=== PATIENT | male | born 1980 | race Caucasian/White ===

== ENCOUNTER 2017-05-05 03:33 | Emergency (ER) | payer MEDICAID, SELFPAY ==
[2017-05-05 03:34] VITALS: BP 109/60; PULSE 93; RESP 16; TEMP 36.4; O2SAT 100; BMI 20.1
--- NOTE | 2017-05-05 03:55 | ED.VISSUMM ---
- ER Visit Summary Date of Service: 05/05/17 Chief Complaint: A posterior shoulder discomfort History of Present Illness: The patient is a 36 M significant past medical or surgical history other than lymphoma which was treated last year. He has a right MediPort. Patient states she has had 2 day history of dull aching in his right posterior shoulder. At times it sharp. Worse with movement. He is right-hand dominant. He denies any injury. Denies any fever. He denies any chest pain, shortness of breath or abdominal pain. He denies any nausea, vomiting or diarrhea. Physical Examination: Well-appearing young male. Vital signs are stable afebrile. Pulse ox 100% on room air no signs of hypoxia. H EENT exam unremarkable. Neck nontender no lymphadenopathy. Lungs clear to auscultation bilaterally. Heart regular rhythm no murmur. Right chest wall port nontender no redness. Abdomen soft nontender. He is moving all 4 extremities. Neurovascular intact. His right posterior shoulder and back medial to the scapula other soft tissue tenderness consistent with myofascial strain. There is no ecchymosis or bruising. No bony deformity. The right shoulder itself is nontender nonswollen. No redness or bruising. No swelling no effusion. No signs of infection. He has no axillary lymphadenopathy or tenderness. He has full flexion-extension and rotation of his right shoulder. There are no bony deformities. Is not hot or swollen. The right clavicle is intact. The humerus, elbow, right forearm, wrist and hand are nontender neurovascular intact. Full range of motion. 5 out of 5 preschool director strength. Normal sensation. Strong radial pulse. Otherwise exam is unremarkable. Test Results: None Emergency Department Course and Treatment: Patient's history and exam is consistent with a right trapezius myofascial strain. He will be given Motrin and discharged to home. X-rays and labs are not necessary. Treatment Plan: Hot shower, warm bath and massage. Motrin for pain and inflammation. Follow-up if not improving. Disposition: Discharge Impression: Acute right shoulder myofascial strain of the trapezius This note was generated with [employer] dictation software. It may contain incorrect words, spelling, and punctuation that were not noted in review of the chart prior to signing ED Disposition - Plan for ED Patient: Chief Complaint: Upper Extremity Injury Referrals: Leonor Godinez MD [Primary Care Provider] -
--- NOTE | 2017-05-05 03:58 | ED.DCSUM_ITS ---
- ER Visit Summary Date of Service: 05/05/17 Chief Complaint: A posterior shoulder discomfort History of Present Illness: The patient is a 36 M significant past medical or surgical history other than lymphoma which was treated last year. He has a right MediPort. Patient states she has had 2 day history of dull aching in his right posterior shoulder. At times it sharp. Worse with movement. He is right -hand dominant. He denies any injury. Denies any fever. He denies any chest pain, shortness of breath or abdominal pain. He denies any nausea, vomiting or diarrhea. Physical Examination: Well-appearing young male. Vital signs are stable afebrile. Pulse ox 100% on room air no signs of hypoxia. H EENT exam unremarkable. Neck nontender no lymphadenopathy. Lungs clear to auscultation bilaterally. Heart regular rhythm no murmur. Right chest wall port nontender no redness. Abdomen soft nontender. He is moving all 4 extremities. Neurovascular intact. His right posterior shoulder and back medial to the scapula other soft tissue tenderness consistent with myofascial strain. There is no ecchymosis or bruising. No bony deformity. The right shoulder itself is nontender nonswollen. No redness or bruising. No swelling no effusion. No signs of infection. He has no axillary lymphadenopathy or tenderness. He has full flexion-extension and rotation of his right shoulder. There are no bony deformities. Is not hot or swollen. The right clavicle is intact. The humerus , elbow, right forearm, wrist and hand are nontender neurovascular intact. Full range of motion. 5 out of 5 director medicare sales strength. Normal sensation. Strong radial pulse. Otherwise exam is unremarkable. Test Results: None Emergency Department Course and Treatment: Patient's history and exam is consistent with a right trapezius myofascial strain. He will be given Motrin and discharged to home. X-rays and labs are not necessary. Treatment Plan: Hot shower, warm bath and massage. Motrin for pain and inflammation. Follow-up if not improving. Disposition: Discharge Impression: Acute right shoulder myofascial strain of the trapezius This note was generated with Vinny dictation software. It may contain incorrect words, spelling, and punctuation that were not noted in review of the chart prior to signing ED Disposition - Plan for ED Patient: Chief Complaint: Upper Extremity Injury Referrals: Leonor Godinez MD [Primary Care Provider] -
--- NOTE | 2017-05-05 03:58 | ED.DEP ---
ED Disposition - Plan for ED Patient: Disposition: Home or Assisted Living Chief Complaint: Upper Extremity Injury Instructions: ED Strain Muscle Ext Referrals: Leonor Godinez MD [Primary Care Provider] - 1 Week if not improving Additional Instructions: Shower, warm bath and massage to right posterior shoulder. This is secondary to a strained muscle. Motrin for pain and inflammation. If not improving in 1 week follow-up your primary care physician.
[2017-05-05] MEDS: Ibuprofen 600 MG Tablet PO (04:05)
[2017-05-05 04:11] VITALS: RESP 16
== END 2017-05-05 04:11 | disposition home or self-care (01) ==
PROVIDERS: Emergency Provider Emergency Medicine; Family Provider Family Medicine; PCP Family Medicine
DX: S46.811A Strain of other muscles, fascia and tendons at shoulder and upper arm level, right arm, initial encounter (principal); X58.XXXA Exposure to other specified factors, initial encounter; Y93.9 Activity, unspecified; Y92.9 Unspecified place or not applicable; Z85.72 Personal history of non-Hodgkin lymphomas; Z92.21 Personal history of antineoplastic chemotherapy; Z95.828 Presence of other vascular implants and grafts
CPT/HCPCS: 99282

== ENCOUNTER 2017-05-15 01:55 | Emergency (ER) | payer MEDICAID, SELFPAY ==
[2017-05-15 01:56] VITALS: BP 104/69; PULSE 86; RESP 16; TEMP 36.9; O2SAT 99; BMI 19.0
[2017-05-15] MEDS: Morphine 4 MG/ML Syringe IV (02:40)
[2017-05-15] MEDS: Ondansetron 4 MG/2 ML Vial IV (02:40)
[2017-05-15] MEDS: 0.9% Normal Saline 1,000 ML 1000 ML IV (02:45)
[2017-05-15 02:49] LABS: Absolute Lymphocyte Count 1.16 X10^3/ul (0.83-4.51); Absolute Neutrophil Count 3.6 X10^3/uL (2.0-7.7); Basophil# 0.01 X10^3/uL; Basophil% 0.2 % (0-1); Eosinophil# 0.08 X10^3/uL; Eosinophils% 1.5 % (0-5); Hematocrit 39.6 % (40-54); Hemoglobin 13.8 g/dl (13.0-16.5); Lymphocyte # 1.16 X10^3/ul (4.0); Lymphocyte % 22.3 % (19-41); Mean Corp Hgb Conc 34.8 g/gl (32-36); Mean Corpuscular Hgb 29.9 pg (27.0-32.0); Mean Corpuscular Volume 85.9 fL (80-94); Mean Platelet Vol. 10.6 fl (6.2-12.0); Monocyte# 0.34 X10^3/uL; Monocyte% 6.5 % (0-10); Neutrophil # 3.61 X10^3/uL (2.7-7.7); Neutrophil % 69.3 % (47-70); Platelet Count 220 K/mm3 (150-450); RBC Distribution Width CV 13.9 % (11.6-14.6); RBC Distribution Width SD 43.2 fl (35.1-43.9); Red Blood Count 4.61 M/mm3 (4.6-6.2); White Blood Count 5.2 K/mm3 (4.4-11.0)
[2017-05-15 02:50] LABS: POSITIVE COUNT NO; POSITIVE DIFFERENTIAL NO; POSITIVE MORPHOLOGY NO
[2017-05-15 03:06] LABS: AST(SGOT) 16 U/L (15-37); Alanine Aminotransfer ALT/SGPT 18 U/L (16-61); Albumin, Serum 3.9 g/dL (3.2-5.0); Alkaline Phosphatase 60 U/L (45-117); Anion Gap 8 (5-15); BUN 15 mg/dL (7-18); BUN/Creat Ratio 17.5 RATIO (10-20); Bilirubin, Direct 0.08 mg/dL (0.00-0.30); Calcium,Total 8.6 mg/dL (8.5-10.1); Chloride 107 mmol/L (98-107); Creatinine, Serum 0.86 mg/dL (0.70-1.30); EST Glomerular Filtration Rate 107 mL/min (>60); Est Glom Filt Rate - Afr Amer 130 mL/min (>60); Estimated Creatinine Clearance 90.76 ml/min; Globulin 3.3 g/dL (2.2-4.2); Glucose 93 mg/dL (74-106); Lipase 134 U/L (73-393); Potassium 3.8 mmol/L (3.5-5.1); Protein, Total 7.2 g/dL (6.4-8.2); Sodium Level 142 mmol/L (136-145)
--- NOTE | 2017-05-15 03:27 | ED.VISSUMM ---
- ER Visit Summary Date of Service: 05/15/17 Chief Complaint: [] Abdominal pain History of Present Illness: The patient is a 36 M with abdominal pain for the last 7 days gradual onset continuous stabbing pain mostly on the left side. Mild to moderate. No history of kidney stones. No home treatment. He has remote lymphoma in 2010. He had a normal CAT scan in February of last year of his abdomen. Physical Examination: Vital signs reviewed General: Well-nourished well-developed Head: Normocephalic atraumatic Eyes: Pupils equal round and reactive to light extraocular movements intact ENT: TMs clear no hemotympanum no trauma Neck: Nontender full range of motion Cardiovascular: Regular rate rhythm no murmurs normal S1-S2 Respiratory: No distress clear to auscultation bilaterally chest nontender Abdomen: Soft tenderness left-sided without guarding.nondistended normal bowel sounds no masses Back: Nontender no CVA tenderness Extremities: Nontender active range of motion ?4 extremities no trauma Skin: Normal color no trauma Neuro alert oriented cranial nerves II through XII intact normal strength sensation reflexes Test Results: [] Emergency Department Course and Treatment: [] CBC chemistry liver function tests lipase all normal. Patient given IV fluids and morphine and Zofran with good resolution of symptoms. He will be given a short course of pain medicine will follow-up as an outpatient with his family doctor. I do not feel he needs an emergent CAT scan. Treatment Plan: [] Disposition: [] Impression: [] Abdominal pain This note was generated with [employer] dictation software. It may contain incorrect words, spelling, and punctuation that were not noted in review of the chart prior to signing ED Disposition - Plan for ED Patient: Chief Complaint: Abd Pain Referrals: Leonor Godinez MD [Primary Care Provider] -
--- NOTE | 2017-05-15 03:28 | ED.DEP ---
ED Disposition - Plan for ED Patient: Chief Complaint: Abd Pain Instructions: ED Abdominal Pain Unkn Cause Prescriptions: Hydrocodone Bitart/Apap 5-325 [[place] 5/325] 1 - 2 tab PO Q4H PRN PRN 3 Days #8 tab PRN Reason: Pain Referrals: Leonor Godinez MD [Primary Care Provider] -
[2017-05-15 03:34] VITALS: BP 104/37; PULSE 67; O2SAT 100
== END 2017-05-15 03:37 | disposition home or self-care (01) ==
PROVIDERS: Emergency Provider Emergency Medicine; Family Provider Family Medicine; PCP Family Medicine
DX: R10.9 Unspecified abdominal pain (principal); Z85.72 Personal history of non-Hodgkin lymphomas; Z87.440 Personal history of urinary (tract) infections
CPT/HCPCS: 80048; 80076; 83690; 85025; 96361; 96374; 96375; 99284; J7030; J2405

== ENCOUNTER 2017-05-30 00:47 | Emergency (ER) | payer MEDICAID, SELFPAY ==
[2017-05-30] VITALS (8 sets, daily range): BP systolic 85–114; BP diastolic 57–82; PULSE 68–99; RESP 14–17; TEMP 36.6–36.7; O2SAT 97–99; BMI 19.0
[2017-05-30 01:21] LABS: Absolute Lymphocyte Count 1.05 X10^3/ul (0.83-4.51); Absolute Neutrophil Count 3.9 X10^3/uL (2.0-7.7); Basophil# 0.01 X10^3/uL; Basophil% 0.2 % (0-1); Eosinophil# 0.09 X10^3/uL; Eosinophils% 1.6 % (0-5); Hematocrit 38.6 % (40-54); Hemoglobin 13.4 g/dl (13.0-16.5); Lymphocyte # 1.05 X10^3/ul (4.0); Mean Corp Hgb Conc 34.7 g/gl (32-36); Mean Corpuscular Hgb 29.6 pg (27.0-32.0); Mean Corpuscular Volume 85.4 fL (80-94); Monocyte# 0.45 X10^3/uL; Monocyte% 8.2 % (0-10); Neutrophil # 3.91 X10^3/uL (2.7-7.7); Neutrophil % 70.8 % (47-70); Platelet Count 230 K/mm3 (150-450); RBC Distribution Width CV 13.9 % (11.6-14.6); RBC Distribution Width SD 42.9 fl (35.1-43.9); Red Blood Count 4.52 M/mm3 (4.6-6.2); White Blood Count 5.5 K/mm3 (4.4-11.0)
[2017-05-30 01:24] LABS: POSITIVE COUNT NO; POSITIVE DIFFERENTIAL NO; POSITIVE MORPHOLOGY NO
[2017-05-30 01:35] LABS: Anion Gap 7 (5-15); BUN 20 mg/dL (7-18); Calcium,Total 8.5 mg/dL (8.5-10.1); Chloride 108 mmol/L (98-107); Creatinine, Serum 1.05 mg/dL (0.70-1.30); EST Glomerular Filtration Rate 85 mL/min (>60); Est Glom Filt Rate - Afr Amer 103 mL/min (>60); Estimated Creatinine Clearance 74.34 ml/min; Glucose 86 mg/dL (74-106); Potassium 3.8 mmol/L (3.5-5.1); Sodium Level 141 mmol/L (136-145)
[2017-05-30 01:38] LABS: Alcohol, Blood (Medical)-Serum < 3.0 mg/dL
--- NOTE | 2017-05-30 01:55 | ED.DCSUM_ITS ---
- ER Visit Summary Date of Service: 05/30/17 Chief Complaint: Suicidal ideation History of Present Illness: The patient is a 36 M patient brought in by PD after telling his father he had suicidal thoughts. He states his evening told his father he wanted to stab himself in the heart.. Admits to distress. History of bipolar not on any medications. Does not follow counselor or psychiatrist. States he had one inpatient stays in the past, none recently. States he drinks alcohol whenever he can, however none tonight. Admits to tobacco. Admits to THC use. No homicidal ideations. Denies any auditory or visual hallucinations. Does admit to wanting help. States he has been having thoughts for a while. Denies history of self injuries. States decreased appetite. Physical Examination: General: Alert and oriented ?3, no acute distress. Cooperative HEENT: Normocephalic, atraumatic. Moist mucosa membranes Neck: supple, nontender. Cardiovascular: Regular rate and rhythm, no murmurs Respiratory: Normal breath sounds, symmetric, no distress Abdomen: Soft, nontender, nondistended Extremities: Nontender, no edema, pulses intact ?4 Neuro: no focal neurological deficits. Psych: Positive suicidal ideation, flat affect Test Results: CBC, BMP normal. Tox and alcohol negative. Emergency Department Course and Treatment: Patient vitals stable, cooperative in the ED. Admits to suicidal ideations. Labs obtained, negative tox and alcohol. Patient medically cleared. Pending [facility] evaluation for disposition. Treatment Plan: [] Disposition: [] Impression: Suicidal ideation This note was generated with [employer] dictation software. It may contain incorrect words, spelling, and punctuation that were not noted in review of the chart prior to signing ED Disposition - Plan for ED Patient: Chief Complaint: Suicidal Referrals: Leonor Godinez MD [Primary Care Provider] -
[2017-05-30 02:04] LABS: Vista UDS pH Range 6
[2017-05-30 02:24] LABS: Amphetamine Urine VISTA NEGATIVE (<1000 ng/mL); Barbiturate Urine VISTA NEGATIVE (< 200 ng/mL); Benzodiazepine Urine VISTA NEGATIVE (< 200 ng/mL); Cocaine Urine VISTA NEGATIVE (< 300 ng/mL); Ecstacy Urine VISTA NEGATIVE (< 500 ng/mL); Methadone Urine VISTA NEGATIVE (< 300 ng/mL); PCP Urine VISTA NEGATIVE (< 25 ng/mL); THC Urine VISTA NEGATIVE (< 50 ng/mL)
--- NOTE | 2017-05-30 02:27 | ED.RN ---
CRISIS CALLED TO SEE PATIENT AT THIS TIME
--- NOTE | 2017-05-30 02:31 | ED.RN ---
CRISIS CALLED BACK MADE AWARE OF PATIENT CURRENTLY AT [facility] WITH ANOTHER PATIENT
--- NOTE | 2017-05-30 05:10 | ED.RN ---
LAMONTE FROM CRISIS HERE TO SEE PATIENT
--- NOTE | 2017-05-30 05:46 | EKG12_ITS ---
Test Reason : [facility] Pressure : / mmHG Vent. Rate : 071 BPM Atrial Rate : 071 BPM P-R Int : 130 ms QRS Dur : 086 ms QT Int : 388 ms P-R-T Axes : 071 079 046 degrees QTc Int : 421 ms Normal sinus rhythm Nonspecific T wave abnormality Abnormal ECG Confirmed by NIRANJAN ALBARADO, JUHI ([id number]), news videotape editor MICKY BUSBY ([id number]) on 06/04/2017 2:12:23 PM Referred By: LAINEY Confirmed By:JUHI UREÑA MD
--- NOTE | 2017-05-30 05:47 | ED.RN ---
called for ekg
[2017-05-30 06:06] LABS: Bacteria 0 SEEN /hpf (None Seen); Mucous, Urine 0 SEEN /hpf (<or=2+); Red Blood Cells-Urine 0 SEEN /hpf (0-5); Squamous Epithelial Cells - UA 0 SEEN /hpf (0-5); White Blood Cells 0 SEEN /hpf (0-5)
[2017-05-30 06:08] LABS: Color, Urine Yellow (Yellow); Glucose, Dipstick Normal (Normal); Ketone-Dipstick Negative (Negative); Leukocyte Esterase-Dipstick Negative /ul (Negative); Nitrite-Dipstick Negative (Negative); Occult Blood-Urine Negative /ul (Negative); Protein-Dipstick Negative (Negative); Specific Gravity, Urine 1.025 (1.002-1.030); Urine Bilirubin Dipstick Negative (Negative); Urine Clarity Clear (Clear); Urine Urobilinogen 4 mg/dl (Normal)
[2017-05-30 06:30] LABS: AST(SGOT) 18 U/L (15-37); Alanine Aminotransfer ALT/SGPT 19 U/L (16-61); Albumin, Serum 3.8 g/dL (3.2-5.0); Alkaline Phosphatase 63 U/L (45-117); Bilirubin, Direct 0.11 mg/dL (0.00-0.30); Globulin 3.3 g/dL (2.2-4.2); Protein, Total 7.1 g/dL (6.4-8.2)
--- NOTE | 2017-05-30 08:43 | NURSING ---
JOSE MARTIN, CRISIS, CALLED. HE WILL FOLLOWUP WITH [facility].
== END 2017-05-30 13:20 ==
PROVIDERS: Emergency Provider Emergency Medicine; Family Provider Family Medicine; PCP Family Medicine
DX: R45.851 Suicidal ideations (principal); F31.9 Bipolar disorder, unspecified; F12.90 Cannabis use, unspecified, uncomplicated; Z72.0 Tobacco use
CPT/HCPCS: 80048; 80076; 80307; 80320; 81001; 85025; 93005; 99284; G0480

== ENCOUNTER 2017-06-27 02:18 | Emergency (ER) | payer MEDICAID, SELFPAY ==
[2017-06-27 02:19] VITALS: BP 114/69; PULSE 115; RESP 16; TEMP 36.8; O2SAT 97; BMI 19.2
--- NOTE | 2017-06-27 02:35 | EKG12_ITS ---
Test Reason : CP Blood Pressure : / mmHG Vent. Rate : 101 BPM Atrial Rate : 101 BPM P-R Int : 132 ms QRS Dur : 074 ms QT Int : 324 ms P-R-T Axes : 072 064 -02 degrees QTc Int : 420 ms Sinus tachycardia Nonspecific T wave abnormality Abnormal ECG Confirmed by NIRANJAN ALBARADO, JUHI ([id number]), editorial specialist MICKY BUSBY ([id number]) on 06/28/2017 2:17:22 PM Referred By: CLAUDETTE Confirmed By:JUHI UREÑA MD
--- NOTE | 2017-06-27 02:35 | CT_ITS ---
STUDY: CTA CHEST REASON FOR EXAM: Male, 36 years old. Chest pain. History of lymphoma RADIATION DOSAGE (If Supplied By Facility): CTDIvol = ( 4.62 ) mGy, DLP = ( 210.68 ) mGycm TECHNIQUE: The examination was performed with the intravenous administration of 75ML ml of Isovue 370 contrast material. Post-processing of the angiographic images was performed, with multiplanar reformation and 3D reconstruction. Individualized dose optimization techniques were used for this CT. COMPARISON: None. FINDINGS: : TRACHEA, THYROID, ESOPHAGUS: No tracheomalacia,stricture or wall thickening. Thyroid and esophagus are normal CARDIOVASCULAR SYSTEM:The thoracic aorta is normal with no aneurysm, dissection or developmental anomalies. The pulmonary trunk and the left and right pulmonary arteries and their lobar and segmental branches do not show any abnormal and persistent filling defects in them. There is therefore no evidence of pulmonary embolism. The heart is normal. There are no venous anomalies NUSRAT AND LYMPH NODES: No hilar masses and no mediastinal, hilar, axillary or supraclavicular adenopathy LUNGS, LOW-ATTENUATION: No traction bronchiectasis, honeycombing,emphysema, lung cysts or cavitations LUNGS, HIGH ATTENUATION: No nodules/masses, ground glass opacities/consolidations or increased interstitial markings LUNGS, MOSAIC/CRAZY PAVING: Not evident PLEURA AND CHEST WALL: No plural effusions, pneumothoraces,rib fractures or any osteolytic/osteoblastic changes . The soft tissue chest wall including the breasts are normal UPPER ABDOMEN: Unremarkable CT/CTA Chest W/WO Contrast IMPRESSION: Normal CTA chest examination, without a demonstrated pulmonary embolism or arterial dissection. No acute findings in the lungs No mediastinal, hilar, axillary or supraclavicular adenopathy Electronically Signed: Abebe Nazario, at 3:45 EDT Tel , Service support ,
[2017-06-27] MEDS: Acetaminophen 500 MG Tablet 1000 MG PO (02:42)
[2017-06-27] MEDS: Aspirin 81 MG TAB.CHEW 324 MG PO (02:42)
[2017-06-27] MEDS: 0.9% Normal Saline 1,000 ML 1000 ML IV (02:42)
[2017-06-27 02:46] VITALS: O2SAT 99
[2017-06-27 02:46] LABS: Absolute Lymphocyte Count 1.15 X10^3/ul (0.83-4.51); Absolute Neutrophil Count 7.2 X10^3/uL (2.0-7.7); Basophil# 0.01 X10^3/uL; Basophil% 0.1 % (0-1); Hematocrit 40.8 % (40-54); Hemoglobin 14.2 g/dl (13.0-16.5); Lymphocyte # 1.15 X10^3/ul (4.0); Lymphocyte % 13.1 % (19-41); Mean Corp Hgb Conc 34.8 g/gl (32-36); Mean Corpuscular Hgb 29.8 pg (27.0-32.0); Mean Corpuscular Volume 85.5 fL (80-94); Mean Platelet Vol. 9.9 fl (6.2-12.0); Monocyte# 0.38 X10^3/uL; Monocyte% 4.3 % (0-10); Neutrophil # 7.24 X10^3/uL (2.7-7.7); Neutrophil % 82.2 % (47-70); POSITIVE COUNT NO; POSITIVE DIFFERENTIAL NO; POSITIVE MORPHOLOGY NO; Platelet Count 292 K/mm3 (150-450); RBC Distribution Width CV 13.8 % (11.6-14.6); RBC Distribution Width SD 42.9 fl (35.1-43.9); Red Blood Count 4.77 M/mm3 (4.6-6.2); White Blood Count 8.8 K/mm3 (4.4-11.0)
[2017-06-27 03:00] LABS: Anion Gap 7 (5-15); BUN 19 mg/dL (7-18); BUN/Creat Ratio 18.4 RATIO (10-20); Calcium,Total 8.8 mg/dL (8.5-10.1); Chloride 104 mmol/L (98-107); Creatinine, Serum 1.03 mg/dL (0.70-1.30); EST Glomerular Filtration Rate 87 mL/min (>60); Est Glom Filt Rate - Afr Amer 105 mL/min (>60); Glucose 115 mg/dL (74-106); Potassium 3.5 mmol/L (3.5-5.1); Sodium Level 139 mmol/L (136-145)
[2017-06-27 03:32] VITALS: BP 100/66; PULSE 84; RESP 16; O2SAT 98
--- NOTE | 2017-06-27 03:57 | ED.VISSUMM ---
- ER Visit Summary Date of Service: 06/27/17 Chief Complaint: Chest pain History of Present Illness: The patient is a [address] Nadine Godinez. He reports that he has pain that is substernal began 11:00 last night while he was at rest. It is a continuous sharp pain. It is 10 out of 10 at worst and a 10 currently. Is worsened by movement of his left arm or torso. Is unchanged by exertion. Is relieved by nothing. He denies any associated nausea or vomiting. Does report that when the pain is severe and makes him short of breath and diaphoretic. He states this is similar to when he was diagnosed with lymphoma. Patient reports that he was diagnosed with lymphoma in August 2015. He saw Dr. Valero, and oncologist at [facility], and had his last chemo in June 2016. As far as he knows he is cancer free. He is very concerned tonight that he has had a recurrence of his lymphoma. Physical Examination: Vitals: Stable. Afebrile. General: Well-nourished and well-developed. Head: Normocephalic atraumatic. Neck: Supple, no lymphadenopathy. No JVD. Nontender. Cardiovascular: Regular rate and rhythm. No murmurs. Respiratory: No respiratory distress. Clear to auscultation bilaterally. Moderate tenderness palpation over the left costochondral margin that does reproduce his pain. His pain is also reviewed produced with movement of his left arm. Abdominal: Soft, nontender, nondistended, normal bowel sounds. No guarding, rebound, or peritoneal signs. Back: Nontender. Extremities: Nontender, no edema. Skin: Normal color, no rash. Neurologic: Alert and oriented ?3. Cranial nerves II through XII are intact. Normal strength and sensation. Psych: Normal affect. Test Results: EKG is sinus tach at 101. Nonspecific ST changes. No significant changes from last month. Troponin is negative. Chem-7 is more for BUN of 19 and glucose of 115. CBC is remarkable for segment neutrophils of 82 lymphocytes of 13. CTA of the chest shows no PE or dissection. There is also no evidence of recurrence of his lymphoma. Emergency Department Course and Treatment: Patient was given a liter of normal saline and Toradol IV. On repeat exam his heart rate is in the 70s and he is resting comfortably. Treatment Plan: Patient's pain is reproducible with palpation and movement. His main concern was whether he had a recurrence of his lymphoma. His SIMIN score is 0. I do not think that this is cardiac in etiology. He has had 3-1/2 hours of constant pain with no change in his EKG or enzymes. I feel that he is a suitable candidate for further outpatient evaluation. He will be discharged instructions to follow-up with his primary care physician 1-2 days if not improving. Return to the emergency department for any worsening symptoms. Disposition: To home in improved and stable condition. Impression: 1. Chest wall pain. 2. History of lymphoma. 3. SIMIN score of 0. This note was generated with [employer]b dictation software. It may contain incorrect words, spelling, and punctuation that were not noted in review of the chart prior to signing ED Disposition - Plan for ED Patient: Chief Complaint: Chest Pain Instructions: ED Chest Pain Atypical Unkn Cause Referrals: Leonor Godinez MD [Primary Care Provider] - 1-2 Days if not improving
[2017-06-27 04:07] VITALS: BP 111/65; PULSE 73; RESP 16; O2SAT 98
--- NOTE | 2017-06-27 04:08 | ED.RN ---
IV DC'ED, CATHETER INTACT, SMALL GAUZE DRESSING PLACED. DISCHARGE INSTRUCTIONS GIVEN TO AND REVIEWED WITH PATIENT, PATIENT DENIES QUESTIONS OR CONCERNS AND VOICES UNDERSTANDING OF DISCHARGE INSTRUCTIONS. PT AMBULATES OUT OF ROOM WITHOUT DIFFICULTY.
== END 2017-06-27 04:09 | disposition home or self-care (01) ==
LOC: ED 03:29
PROVIDERS: Emergency Provider Emergency Medicine; Family Provider Family Medicine; PCP Family Medicine
DX: R07.89 Other chest pain (principal); Z85.72 Personal history of non-Hodgkin lymphomas; R06.00 Dyspnea, unspecified; R61 Generalized hyperhidrosis; Z92.21 Personal history of antineoplastic chemotherapy; F17.220 Nicotine dependence, chewing tobacco, uncomplicated
CPT/HCPCS: 71275; 80048; 84484; 85025; 93005; 96360; 99285; J7030; Q9967

== ENCOUNTER 2017-09-11 17:48 | Emergency (ER) | payer MEDICAID, SELFPAY ==
[2017-09-11 17:49] VITALS: BP 92/75; PULSE 99; RESP 16; TEMP 36.8; O2SAT 99
--- NOTE | 2017-09-11 18:10 | EKG12_ITS ---
Test Reason : Blood Pressure : / mmHG Vent. Rate : 082 BPM Atrial Rate : 082 BPM P-R Int : 132 ms QRS Dur : 078 ms QT Int : 344 ms P-R-T Axes : 065 071 022 degrees QTc Int : 401 ms Normal sinus rhythm with sinus arrhythmia Normal ECG Confirmed by ROXY ALBARADO, VALENCIA ([id number]), supervising editor news reel MICKY BUSBY ([id number]) on 09/13/2017 1:27:36 PM Referred By: MATILDE Confirmed By:VALENCIA RAMSEY MD
--- NOTE | 2017-09-11 18:15 | RAD_ITS ---
STUDY: X-RAY CHEST REASON FOR EXAM: Male, 36 years old. Chest pain TECHNIQUE: Frontal view of the chest COMPARISON: 07/23/2015 FINDINGS: The lungs are clear. There are no pleural effusions. There is no pneumothorax. The heart is normal in size. The visualized osseous structures are within normal limits. RAD/Chest 1 View (Portable) IMPRESSION: No acute thoracic pathology. Electronically Signed: Scott Brambila, at 18:31 EDT Tel , Service support ,
[2017-09-11] MEDS: 0.9% Normal Saline 1,000 ML 150 ML IV (18:21)
[2017-09-11 18:24] LABS: Absolute Lymphocyte Count 0.94 X10^3/ul (0.83-4.51); Basophil# 0.01 X10^3/uL; Basophil% 0.2 % (0-1); Eosinophil# 0.04 X10^3/uL; Eosinophils% 0.9 % (0-5); Hematocrit 41.4 % (40-54); Hemoglobin 14.2 g/dl (13.0-16.5); Lymphocyte # 0.94 X10^3/ul (4.0); Lymphocyte % 21.3 % (19-41); Mean Corp Hgb Conc 34.3 g/gl (32-36); Mean Corpuscular Hgb 29.5 pg (27.0-32.0); Mean Corpuscular Volume 86.1 fL (80-94); Mean Platelet Vol. 10.7 fl (6.2-12.0); Monocyte# 0.38 X10^3/uL; Monocyte% 8.6 % (0-10); Neutrophil # 3.03 X10^3/uL (2.7-7.7); Neutrophil % 68.8 % (47-70); POSITIVE COUNT NO; POSITIVE DIFFERENTIAL NO; POSITIVE MORPHOLOGY NO; Platelet Count 217 K/mm3 (150-450); RBC Distribution Width CV 13.4 % (11.6-14.6); RBC Distribution Width SD 42.7 fl (35.1-43.9); Red Blood Count 4.81 M/mm3 (4.6-6.2); White Blood Count 4.4 K/mm3 (4.4-11.0)
[2017-09-11 18:36] LABS: D-Dimer Quantitative (DVT/PE) 0.37 FEU/ug/m (0.27-0.49)
[2017-09-11 18:40] LABS: Anion Gap 8 (5-15); BUN 17 mg/dL (7-18); BUN/Creat Ratio 16.3 RATIO (10-20); Chloride 105 mmol/L (98-107); Creatinine, Serum 1.04 mg/dL (0.70-1.30); EST Glomerular Filtration Rate 86 mL/min (>60); Est Glom Filt Rate - Afr Amer 104 mL/min (>60); Estimated Creatinine Clearance 78.95 ml/min; Glucose 99 mg/dL (74-106); Potassium 3.7 mmol/L (3.5-5.1); Sodium Level 141 mmol/L (136-145)
--- NOTE | 2017-09-11 19:09 | ED.DCSUM_ITS ---
- ER Visit Summary Date of Service: 09/11/17 Chief Complaint: Chest pain History of Present Illness: The patient is a 36 M who initially complains of a 3 day history of chest pain. After further questioning pain is been ongoing for at least 7 days. He complains of pain right to the sternal area describes it as sharp. He states he occasionally gets short of breath. He states he has not had much of an appetite. He denies cough. He is reportedly seen at [place] last week for the same and had a negative workup. He has not yet made an appointment with his doctor for follow-up. Patient has a history of lymphoma, currently in remission. He denies personal cardiac history. He denies palpitations or near syncope. Physical Examination: Vital signs are gross unremarkable. Blood pressure is 92/ 75. Head neck examination unremarkable. Heart is regular rate and rhythm. Lung sounds are clear. He has reproducible anterior chest wall tenderness. There is no crepitus. Abdomen is soft nontender. Lower extremity examination reveals no calf tenderness or edema. Test Results: EKG is sinus 82 with no sign of acute ischemia. Chest x-ray is unremarkable. CBC and chemistry studies are normal. Troponin is less than 0.015. D-dimer 0.37. Emergency Department Course and Treatment: Patient was given IV fluids here. He lists allergies to naproxen, tramadol, and hydromorphone. When nursing staff asked what he could take for pain he reports Vicodin and Percocet. I specifically asked him what he could take for pain that was nonnarcotic. He states he has had Toradol in the past. He will be given a dose of IV Toradol and written for Toradol tabs. Patient is advised to follow-up with his primary care physician. Treatment Plan: [] Disposition: Discharge Impression: Chest wall pain This note was generated with [employer] dictation software. It may contain incorrect words, spelling, and punctuation that were not noted in review of the chart prior to signing ED Disposition - Plan for ED Patient: Chief Complaint: Chest Pain Referrals: Leonor Godinez MD [Primary Care Provider] -
--- NOTE | 2017-09-11 19:09 | ED.DEP ---
ED Disposition - Plan for ED Patient: Disposition: Home or Assisted Living Chief Complaint: Chest Pain Instructions: ED Strain Chest Wall Prescriptions: Ketorolac [Toradol] 10 mg PO Q6H PRN #14 tablet PRN Reason: Pain Referrals: Leonor Godinez MD [Primary Care Provider] - As soon as possible
[2017-09-11] MEDS: Ketorolac 30 MG/ML Syringe IV (19:16)
[2017-09-11 19:17] VITALS: BP 93/56; PULSE 69; RESP 18; O2SAT 99
[2017-09-11 20:06] VITALS: BP 96/65; PULSE 72; RESP 18; O2SAT 99
== END 2017-09-11 20:08 | disposition home or self-care (01) ==
PROVIDERS: Emergency Provider Emergency Medicine; Family Provider Family Medicine; PCP Family Medicine
DX: R07.89 Other chest pain (principal); R06.00 Dyspnea, unspecified; Z85.72 Personal history of non-Hodgkin lymphomas
CPT/HCPCS: 71045; 80048; 84484; 85025; 85379; 93005; 96361; 96374; 99284; J7030; A4216

== ENCOUNTER 2017-10-02 17:27 | Emergency (ER) | payer MEDICAID, SELFPAY ==
[2017-10-02 17:28] VITALS: BP 114/72; PULSE 107; RESP 16; TEMP 36.8; O2SAT 99; BMI 18.8
[2017-10-02 18:34] LABS: Hematocrit 42.6 % (40-54); Hemoglobin 14.3 g/dl (13.0-16.5); Mean Corp Hgb Conc 33.6 g/gl (32-36); Mean Corpuscular Hgb 28.9 pg (27.0-32.0); Mean Corpuscular Volume 86.1 fL (80-94); Mean Platelet Vol. 10.5 fl (6.2-12.0); Platelet Count 231 K/mm3 (150-450); RBC Distribution Width CV 13.2 % (11.6-14.6); RBC Distribution Width SD 41.6 fl (35.1-43.9); Red Blood Count 4.95 M/mm3 (4.6-6.2); Scan Indicated on CBC? Y/N NO
[2017-10-02 18:45] LABS: ALB/GLOB Ratio 1.1 RATIO (0.9-2.4); AST(SGOT) 23 U/L (15-37); Alanine Aminotransfer ALT/SGPT 19 U/L (16-61); Albumin, Serum 4.3 g/dL (3.2-5.0); Alkaline Phosphatase 61 U/L (45-117); Anion Gap 8 (5-15); BUN 25 mg/dL (7-18); BUN/Creat Ratio 19.2 RATIO (10-20); Calcium,Total 9.4 mg/dL (8.5-10.1); Chloride 101 mmol/L (98-107); EST Glomerular Filtration Rate 67 mL/min (>60); Est Glom Filt Rate - Afr Amer 80 mL/min (>60); Estimated Creatinine Clearance 59.46 ml/min; Globulin 3.9 g/dL (2.2-4.2); Glucose 88 mg/dL (74-106); Lipase 69 U/L (73-393); Potassium 3.9 mmol/L (3.5-5.1); Protein, Total 8.2 g/dL (6.4-8.2); Sodium Level 138 mmol/L (136-145)
--- NOTE | 2017-10-02 19:40 | ED.VISSUMM ---
- ER Visit Summary Date of Service: 10/02/17 Chief Complaint: Right upper quadrant abdominal pain History of Present Illness: The patient is a 36 M who presents with right upper quadrant abdominal pain that began yesterday. She states the pain is intermittent. Patient states the pain lasts for couple hours. Patient describes the pain as sharp. Patient states pain is localized to the right upper quadrant. Patient denies any radiation of the pain. Patient states nothing makes it better or worse. Patient denies any nausea or vomiting. Patient denies any diarrhea or constipation. Patient denies any melena or hematochezia. Patient denies any urinary complaints. Physical Examination: Vital signs are stable. Patient is afebrile. Patient is in no acute distress. Oral mucosa is pink and moist. Neck is supple. There is no JVD noted. Heart was regular rate and rhythm. Lungs are clear and equal bilaterally. Abdomen is soft. There is right upper quadrant tenderness. There is no rebound or guarding noted. Skin is warm and dry. There is no scleral icterus or jaundice noted. Cranial nerves II through XII are intact. There are no focal motor or sensory deficits noted. Test Results: CBC and comprehensive metabolic profile were obtained and were within normal limits. Emergency Department Course and Treatment: Patient was instructed to follow-up with his primary care physician in 5-7 days. Patient understood and was agreeable with the plan. All questions were answered. Disposition: Discharged home Impression: Right upper quadrant abdominal pain This note was generated with [employer] dictation software. It may contain incorrect words, spelling, and punctuation that were not noted in review of the chart prior to signing ED Disposition - Plan for ED Patient: Disposition: Home or Assisted Living Chief Complaint: Abd Pain Diagnosis: Right upper quadrant abdominal pain of unknown etiology Instructions: ED Abdominal Pain Unkn Cause Referrals: Leonor Godinez MD [Primary Care Provider] -
[2017-10-02 19:44] VITALS: BP 124/60; PULSE 87; RESP 18; O2SAT 100
== END 2017-10-02 19:45 | disposition home or self-care (01) ==
PROVIDERS: Emergency Provider Emergency Medicine; Family Provider Family Medicine; PCP Family Medicine
DX: R10.11 Right upper quadrant pain (principal); Z85.72 Personal history of non-Hodgkin lymphomas; F17.200 Nicotine dependence, unspecified, uncomplicated
CPT/HCPCS: 80053; 83690; 85027; 99282

== ENCOUNTER 2018-05-20 22:04 | Emergency (ER) | payer SELFPAY ==
--- NOTE | 2018-05-20 00:05 | RAD_ITS ---
HISTORY: pain on both sides of jaw/hit in the face by a cow earlier today COMPARISON: None FINDINGS: XR Mandible Complete 5 views 5 views and the Arjun's view is limited by motion. The patient is partially edentulous. No fracture or mandibular dislocation. No suspicious bony lesion. As visualized, the soft tissues are negative. No salivary gland calculi seen. RAD/Mandible Min 4 Views IMPRESSION: Negative for fracture or acute osseous abnormality. at 0030 Reported and signed by: Omar Heaton MD Electronically Signed: Omar Heaton, at 0:29 EDT Tel , Service support ,
[2018-05-20 22:07] VITALS: BP 102/65; PULSE 89; RESP 16; TEMP 36.8; O2SAT 99; BMI 20.7
--- NOTE | 2018-05-20 23:56 | ED.DCSUM_ITS ---
- ER Visit Summary Date of Service: 05/20/18 Chief Complaint: Jaw injury History of Present Illness: The patient is a 37 M who presents with a jaw injury. He was hit in the face by a cow's head. This occurred 4-5 hours before presentation here. He denies any loss of consciousness or amnesia. He has not anticoagulated. He denies headache or vomiting. He is able to open his mouth. Physical Examination: Afebrile vitals normal Patient has swelling of the lower lip there is no midface instability or jaw malocclusion he has tenderness along the chin but the rest of the mandible is nontender no dental fractures no open wounds Heart regular rate and rhythm Lungs clear GCS of 15, no focal or lateralizing neurological deficits Test Results: Mandible x-ray shows no fracture Emergency Department Course and Treatment: X-ray negative as above. Patient declined any analgesics. He was advised on supportive care. Patient discharged. Treatment Plan: [] Disposition: Discharge Impression: Facial contusion This note was generated with [employer] dictation software. It may contain incorrect words, spelling, and punctuation that were not noted in review of the chart prior to signing ED Disposition - Plan for ED Patient: Referrals: Madiha Godinez [Primary Care Provider] -
[2018-05-21 00:20] VITALS: BP 100/67; PULSE 77; RESP 16; O2SAT 99
--- NOTE | 2018-05-21 00:46 | ED.DEP ---
ED Disposition - Plan for ED Patient: Instructions: ED Contusion Face Referrals: Madiha Godinez [Primary Care Provider] -
== END 2018-05-21 00:54 | disposition home or self-care (01) ==
PROVIDERS: Emergency Provider Emergency Medicine
DX: S00.83XA Contusion of other part of head, initial encounter (principal); W55.22XA Struck by cow, initial encounter; Y93.9 Activity, unspecified; Y92.9 Unspecified place or not applicable
CPT/HCPCS: 70110; 99282

== ENCOUNTER 2018-07-22 04:27 | Emergency (ER) | payer SELFPAY ==
[2018-07-22 04:28] VITALS: BP 119/86; PULSE 96; RESP 19; TEMP 37; O2SAT 100; BMI 19.2
--- NOTE | 2018-07-22 04:34 | ED.VIS.GEN ---
History of Present Illness Chief Complaint: Cough Narrative: Patient is a 37-year-old male who presents with a cough. He reports 4 days of a nonproductive cough. No fevers, chest pain, shortness of breath, nausea or vomiting. He does complain of some associated sore throat. No congestion or rhinorrhea. Past Medical History - Allergies and Home Meds Allergies/Adverse Reactions: Allergies naproxen Allergy (Verified 07/22/18 04:30) Hives tramadol Allergy (Verified 07/22/18 04:30) Itching hydromorphone HCl [From Dilaudid] Adverse Reaction (Verified 07/22/18 04:30) Nausea Primary Care Physician: Madiha Godinez [Primary Care Provider] - Past Medical History: - - History of lymphoma Surgical History: no surgical history Smoking Status: Current some day smoker Review of Systems General: Reports: Chills. Denies: Fever Cardiovascular: Denies: Chest pain Respiratory: Reports: Cough. Denies: Dyspnea, Sputum Physical Exam Vital Signs/Narrative: Vital Signs Temp Pulse Resp BP Pulse Ox 07/22/18 04:28 98.6 F 96 19 H 119/86 H 100 General: Well nourished Head: Normocephalic Eyes: Perrl, EOMI ENT: Moist mucous membranes Neck: Supple Cardiovascular: Regular rate, Regular rhythm Respiratory: No distress, CTA bilaterally. Negative for: Rales, Rhonchi, Wheezing Skin: Normal color Neurological: Alert Psychological: Normal affect Diagnostic/Tx/Re-eval - Medical Decision Making Patient is clinically well-appearing. He has normal vital signs. Lungs are clear. I see no indication for further work-up or intervention. He was advised on supportive care. He was advised that with bronchitis cough may persist for weeks. Patient discharged. ED Disposition - Plan for ED Patient: Diagnosis: Bronchitis Instructions: Acute Bronchitis Referrals: Madiha Godinez [Primary Care Provider] -
== END 2018-07-22 04:44 | disposition home or self-care (01) ==
LOC: ED 04:43
PROVIDERS: Emergency Provider Emergency Medicine
DX: J40 Bronchitis, not specified as acute or chronic (principal); F17.200 Nicotine dependence, unspecified, uncomplicated
CPT/HCPCS: 99282

== ENCOUNTER 2018-08-01 21:26 | Emergency (ER) | payer SELFPAY ==
[2018-08-01 21:27] VITALS: BP 114/56; PULSE 100; RESP 16; TEMP 36.7; O2SAT 99; BMI 22.8
--- NOTE | 2018-08-01 21:42 | EKG12_ITS ---
Test Reason : SOB Blood Pressure : / mmHG Vent. Rate : 073 BPM Atrial Rate : 073 BPM P-R Int : 128 ms QRS Dur : 076 ms QT Int : 376 ms P-R-T Axes : 068 071 024 degrees QTc Int : 414 ms Normal sinus rhythm Nonspecific T wave abnormality Abnormal ECG Confirmed by NIRANJAN ALBARADO, JUHI ([id number]), editor trade journal [employer]ATIMA PERAZA ([id number]) on 08/05/2018 9:26:46 AM Referred By: MATILDE Confirmed By:JUHI UREÑA MD
--- NOTE | 2018-08-01 21:45 | ED.DCSUM_ITS ---
- ER Visit Summary Date of Service: 08/01/18 Chief Complaint: Shortness of breath History of Present Illness: The patient is a 37 M who presents with shortness of breath. Is been ongoing for 4 days. He states he has had a cough is not productive of any sputum. He has sharp chest pain in the lower part of his chest. Nothing makes it better or worse. He has decreased appetite. Denies any pain in his abdomen. He is concerned because he has a history of lymphoma and wants to make sure that it is not back. He took nothing for this at home. Physical Examination: Vital signs reviewed. HEENT exam unremarkable. Heart is regular rate and rhythm without murmurs. Lungs are clear to auscultation. He has chest tenderness in the lower sternal area. Abdomen is soft and nontender. Extremities reveal no edema. Peripheral pulses are equal. Skin exam normal. Neurologic exam normal. Test Results: EKG and chest x-ray are both unremarkable Emergency Department Course and Treatment: The patient was given albuterol. He feels improved with this. His EKG and chest x-ray both do not show any acute on normalities. His pain is likely musculoskeletal. I will treat him with an albuterol inhaler at home. He will follow-up with his primary care physician Treatment Plan: [] Disposition: Discharge Impression: Dyspnea, chest pain This note was generated with [employer] dictation software. It may contain incorrect words, spelling, and punctuation that were not noted in review of the chart prior to signing ED Disposition - Plan for ED Patient: Referrals: Madiha Godinez [Primary Care Provider] -
--- NOTE | 2018-08-01 21:50 | RAD_ITS ---
STUDY: X-RAY CHEST REASON FOR EXAM: Male, 37 years old. Shortness of breath for 3 days. TECHNIQUE: PA and lateral views of the chest. COMPARISON: September 11, 2017. FINDINGS: The lungs are hyperexpanded. No new mass or infiltrate. There is no demonstrated pleural abnormality. Normal size heart. Normal mediastinum and sangeeta. Normal visualized pulmonary arteries. Normal visualized aortic arch and descending thoracic aorta. No visualized osseous changes. There is no demonstrated abnormality of the visualized soft tissue structures of the upper abdomen. RAD/Chest PA and Lateral IMPRESSION: No acute cardiopulmonary disease or interval change. Electronically Signed: Juan Dawson DO at 22:09 EDT Tel [phone], Service support ,
[2018-08-01 22:04] VITALS: PULSE 90; RESP 16
[2018-08-01] MEDS: Albuterol 2.5 MG/3 ML VIAL.NEB. INHALATION (22:04)
--- NOTE | 2018-08-01 22:14 | ED.DEP ---
ED Disposition - Plan for ED Patient: Disposition: Home or Assisted Living Instructions: ED Upper Resp Infec No Abx Tx Prescriptions: Albuterol Inhaler [Ventolin Hfa] 1 - 2 puff INHALATION Q4H PRN PRN #1 inhaler PRN Reason: Wheezing Referrals: Madiha Godinez [Primary Care Provider] -
[2018-08-01 22:34] VITALS: BP 107/56; PULSE 91; RESP 18; O2SAT 96
== END 2018-08-01 22:36 | disposition home or self-care (01) ==
LOC: ED 22:22
PROVIDERS: Emergency Provider Emergency Medicine
DX: R06.00 Dyspnea, unspecified (principal); R07.9 Chest pain, unspecified; R05 Cough; Z85.72 Personal history of non-Hodgkin lymphomas
CPT/HCPCS: 71046; 93005; 94640; 99282

== ENCOUNTER 2019-04-02 12:51 | Observation (INO) | payer MEDICAID, SELFPAY ==
[2019-04-02] VITALS (8 sets, daily range): BP systolic 103–119; BP diastolic 54–76; PULSE 73–90; RESP 16–18; TEMP 36.4–37.7; O2SAT 100; BMI 28.2; BMI 19.6
--- NOTE | 2019-04-02 13:15 | ED.VIS.GEN ---
History of Present Illness Chief Complaint: ETOH Intox Informant: Patient Narrative: Patient comes to the emergency department requesting detox from alcohol. He tells me that he has been drinking heavily for 16 years. He states most nights he can drink a case of beer. He was in a detox center in [place] until Saturday when he felt that he did not like it there because it was dirty so he left. He came back to the area and started drinking again. This morning he was fired from his job. He states he was fired because he did not complete detox and that he was intoxicated. He has had 10 beers already this morning. He denies any legal issues currently. He states that the reason he wants to get sober is that he has a year and a half old on the way. I asked him to clarify and he states that he is going to be a father. Past Medical History - Allergies and Home Meds Allergies/Adverse Reactions: Allergies naproxen Allergy (Verified 04/02/19 12:52) Hives tramadol Allergy (Verified 04/02/19 12:52) Itching hydromorphone HCl [From Dilaudid] Adverse Reaction (Verified 04/02/19 12:52) Nausea Primary Care Physician: Care Physician,No Primary [Primary Care Provider] - Surgical History: no surgical history Smoking Status: Never smoker Review of Systems General: Denies: Chills, Fever, Sweats Eyes: Denies: Visual changes - bilaterally, Diplopia ENT: Denies: Rhinorrhea, Sore throat Cardiovascular: Denies: Chest pain, Palpitations Respiratory: Denies: Dyspnea, Cough, Dyspnea on exertion Gastrointestinal: Reports: Abdominal pain. Denies: Nausea, Vomiting, Diarrhea, Melena, Hematochezia Genitourinary: Denies: Dysuria, Hematuria, Frequency Musculoskeletal: Denies: Back pain, Extremity Pain Skin: Denies: Rash, Wounds Neurological: Denies: Headache, Weakness, Numbness Psych: Reports: Depression. Denies: Suicidal thoughts, Suicidal ideations Physical Exam Vital Signs/Narrative: Vital Signs Temp Pulse Resp BP Pulse Ox 04/02/19 12:52 97.6 F L 89 17 104/64 100 Inital Vital Signs reviewed: Yes General: Well nourished, Well developed, Unkempt, No Acute Distress Head: Normocephalic, Atraumatic Eyes: Perrl, EOMI ENT: Moist mucous membranes, No rhinorrhea Neck: Supple, Nontender Cardiovascular: Regular rate, Regular rhythm, No murmurs Respiratory: No distress, CTA bilaterally, Chest nontender Abdomen: Soft, Nondistended, Normal bowel sounds, Tender - Mild diffuse tenderness to palpation Back: Nontender, Normal Inspection Extremities: Nontender, No edema Skin: Normal color, No rash Neurological: Alert, Oriented x3, Cranial nerves II-XII grossly intact, Normal Strength, Normal Sensation Psychological: Normal affect, Normal Mood Diagnostic/Tx/Re-eval - Medical Decision Making Patient's tox screen revealed a normal alcohol level which was surprising given his information that he drank 10 beers this morning. Urine tox showed barbiturates and benzos. Patient's been able to ambulate down the hallway. I did have social work interview the patient. Dr. Hanna has agreed to admit the patient for alcohol detox. ED Disposition - Plan for ED Patient: Disposition: Acute Care [facility] Diagnosis: Alcohol abuse Referrals: Care Physician,No Primary [Primary Care Provider] -
[2019-04-02 13:42] LABS: Absolute Lymphocyte Count 0.99 X10^3/uL (0.83-4.51); Absolute Neutrophil Count 4.1 X10^3/uL (2.0-7.7); Basophil# 0.02 X10^3/uL; Basophil% 0.4 % (0-1); Eosinophil# 0.03 X10^3/uL; Eosinophils% 0.6 % (0-5); Hematocrit 41.8 % (40-54); Hemoglobin 13.6 g/dL (13.0-16.5); Lymphocyte # 0.99 X10^3/ul (4.0); Lymphocyte % 18.5 % (19-41); Mean Corp Hgb Conc 32.5 g/dL (32-36); Mean Corpuscular Hgb 29.1 pg (27.0-32.0); Mean Corpuscular Volume 89.3 fL (80-94); Mean Platelet Vol. 10.1 fl (6.2-12.0); Monocyte# 0.23 X10^3/uL; Monocyte% 4.3 % (0-10); NRBC Flagged by Analyzer 0 % (0-5); Neutrophil # 4.05 X10^3/uL (2.7-7.7); Neutrophil % 75.5 % (47-70); Platelet Count 244 K/mm3 (150-450); RBC Distribution Width SD 45.7 fl (35.1-43.9); Red Blood Count 4.68 M/mm3 (4.6-6.2); White Blood Count 5.4 K/mm3 (4.4-11.0)
[2019-04-02 13:52] LABS: Bacteria 0 SEEN /hpf (None Seen); Mucous, Urine 0 SEEN /hpf (<or=2+); Red Blood Cells-Urine 0 SEEN /hpf (0-5); Squamous Epithelial Cells - UA 0 SEEN /hpf (0-5); White Blood Cells 0 SEEN /hpf (0-5)
[2019-04-02 13:53] LABS: Color, Urine Yellow (Yellow); Glucose, Dipstick Normal (Normal); Ketone-Dipstick Negative (Negative); Leukocyte Esterase-Dipstick Negative /ul (Negative); Nitrite-Dipstick Negative (Negative); Occult Blood-Urine Negative /ul (Negative); Protein-Dipstick Negative (Negative); Urine Bilirubin Dipstick Negative (Negative); Urine Clarity Clear (Clear); Urine Urobilinogen Normal (Normal)
[2019-04-02 13:57] LABS: AST(SGOT) 14 U/L (15-37); Alanine Aminotransfer ALT/SGPT 23 U/L (16-61); Albumin, Serum 3.7 g/dL (3.2-5.0); Alkaline Phosphatase 54 U/L (45-117); Anion Gap 4 (5-15); BUN 8 mg/dL (7-18); BUN/Creat Ratio 8.9 RATIO (10-20); Calcium,Total 8.9 mg/dL (8.5-10.1); Chloride 106 mmol/L (98-107); EST Glomerular Filtration Rate 101 mL/min (>60); Est Glom Filt Rate - Afr Amer 122 mL/min (>60); Estimated Creatinine Clearance 101.41 ml/min; Globulin 3.7 g/dL (2.2-4.2); Glucose 84 mg/dL (74-106); Lipase 59 U/L (73-393); Magnesium 2.4 mg/dL (1.6-2.6); Potassium 3.9 mmol/L (3.5-5.1); Protein, Total 7.4 g/dL (6.4-8.2); Sodium Level 140 mmol/L (136-145)
[2019-04-02 14:04] LABS: Amphetamine Urine VISTA NEGATIVE (<1000 ng/mL); Barbiturate Urine VISTA POSITIVE (< 200 ng/mL); Benzodiazepine Urine VISTA POSITIVE (< 200 ng/mL); Cocaine Urine VISTA NEGATIVE (< 300 ng/mL); Ecstacy Urine VISTA NEGATIVE (< 500 ng/mL); Methadone Urine VISTA NEGATIVE (< 300 ng/mL); PCP Urine VISTA NEGATIVE (< 25 ng/mL); THC Urine VISTA NEGATIVE (< 50 ng/mL); Vista UDS pH Range 7
[2019-04-02 14:24] LABS: Alcohol, Blood (Medical)-Serum < 3.0 mg/dL
--- NOTE | 2019-04-02 14:52 | HP.PCM_ITS ---
History of Present Illness Date of Admission: 04/02/19 Chief Complaint: alcohol withdrawal The patient is a 38 year old M with a past medical history of alcohol abuse. Patient was on admission at a detox facility and [facility] but left lesser today because he said the place was very dirty. He went to [employer] he drank like a fish with his buddies and cannot quantify how much he drank. He has been drinking consistently since then. He was recently fired from his job and decided that he needed help with detox and so he decided to come in. Patient states he is tried quitting numerous times in the past but is just unsuccessful. He complained of feeling miserable but denied any fever or chills, nausea or vomiting. He admitted to [facility] but denied palpitations, abdominal pain or any other symptoms. In the ED, vitals were essentially unremarkable he was saturating at 100% on room air. Chemistry was unremarkable and CBC was also unremarkable. Urine tox was positive for barbiturates and benzodiazepines though he denies taking any pills or any other illicit substances. He has been admitted to be managed for acute alcohol withdrawal. [] Past Medical History Allergies naproxen Allergy (Verified 04/02/19 12:52) Hives tramadol Allergy (Verified 04/02/19 12:52) Itching hydromorphone HCl [From Dilaudid] Adverse Reaction (Verified 04/02/19 12:52) Nausea Home Medications: Ambulatory Orders Medication Instructions Recorded NK 04/02/19 Surgical History: no surgical history Psychiatric History: No pertinent psych hx Lives: Friends Smoking Status: Never smoker Tobacco Use: Non-smoker Alcohol: Heavy Drugs: None - *Family History Maternal History Items: - - patient adopted, so doesnt know about family history Review of Systems Constitutional: Reports: Malaise, Weakness, Fatigue. Denies: Chills, Fever, Weight Change Eyes: Denies: Blurred vision HEENT: Denies: Head Aches, Sinus Congestion, Sinus Drainage Cardiovascular: Denies: Chest Pain, Chest Pressure, Edema, Heaviness, Light Headedness, Palpitations Respiratory: Denies: Cough, Shortness of breath at rest, Sputum production Gastrointestinal: Denies: Abdominal Pain, Nausea, Vomiting Genitourinary: Denies: Dysuria Musculoskeletal: Denies: Joint Pain, Joint Tenderness Skin: Denies: Rash, Wounds Neurological: Reports: Tremor. Denies: Focal weakness, Numbness, Tingling Psychiatric: Denies: Anxiety, Depression, Homicidal Ideations, Suicidal Ideations Hematologic/ Lymphatic: Denies: Easy Bruising, Easy Bleeding VTE Information - Inpt Only VTE Present on Admission: No VTE Pharm Prophylaxis ordered?: Yes Patient Problems: Active and Suspected Problems Alcohol abuse (Acute) - Physical Exam Vitals/I&O's: Vital Signs Temp Pulse Resp BP Pulse Ox 97.6 F L 89 17 104/64 100 04/02/19 12:52 04/02/19 12:52 04/02/19 12:52 04/02/19 12:52 04/02/19 12:52 Oxygen Delivery Method Room Air Weight: 175 lb Body Mass Index (BMI) 28.2 General: Alert, Oriented x3, Cooperative, - - very dishevelled HEENT: Atraumatic, PERRLA, EOMI, Normocephalic Oral: Dry Mucosa Neck: Supple, No JVD, Negative Carotid Bruits Lungs: Clear to auscultation, Normal air movement, No rhonchi, No wheeze, No rales Cardiovascular: Regular rate, Regular Rhythm, Normal S1, Normal S2, No murmurs Abdomen: Bowel Sounds Present, Soft, Non Tender, Non-Distended, No Hepato- splenomegaly Extremities: No clubbing, No cyanosis, No edema, Capillary Refill Less than 3 Seconds, No Calf Tenderness, Cool, Clubbing, Cyanosis, Diminished Peripheral Pulses, Edema, Peripheral Pulses Normal, Tenderness, - Skin: No rashes, No breakdown Musculoskeletal: No Tenderness to Palpation of Joints or Extremities Lymphatic: No Cervical, Supraclavicular, or Inguinal Adenopathy Neurological: Cranial nerves II-XII grossly intact, Neuro grossly intact, Motor Exam 5/5 strength throughout Psych/Mental Status: Flat Affect, Alert and oriented to time, place, person, mood and affect Laboratory Results 04/02/19 13:33: WBC 5.4, RBC 4.68, Hgb 13.6, Hct 41.8, MCV 89.3, MCH 29.1, MCHC 32.5, RDW Std Deviation 45.7 H, RDW Coeff of Hugo 14.0, Plt Count 244, MPV 10.1, Immature Gran % (Auto) 0.700, Neut % (Auto) 75.5 H, Lymph % (Auto) 18.5 L, [place] % (Auto) 4.3, Eos % (Auto) 0.6, Baso % (Auto) 0.4, Absolute Neuts (auto) 4.1, Absolute Lymphs (auto) 0.99, Nucleated RBC % 0 04/02/19 13:33: Sodium 140, Potassium 3.9, Chloride 106, Carbon Dioxide 30.0, Anion Gap 4 L, BUN 8, Creatinine 0.90, Estim Creat Clear Calc 101.41, Est GFR (MDRD) Af Amer 122, Est GFR (MDRD) Non-Af 101, BUN/Creatinine Ratio 8.9 L, Glucose 84, Calcium 8.9, Magnesium 2.4, Total Bilirubin 0.10 L, AST 14 L, ALT 23, Alkaline Phosphatase 54, Total Protein 7.4, Albumin 3.7, Globulin 3.7, Albumin/Globulin Ratio 1.0, Lipase 59 L 04/02/19 13:33: Ethyl Alcohol < 3.0 04/02/19 13:45: Urine Color Yellow, Urine Clarity Clear, Urine pH 8.0, Ur Specific [place] 1.010, Urine Protein Negative, Urine Glucose (UA) Normal, Urine Ketones Negative, Urine Occult Blood Negative, Urine Nitrite Negative, Urine Bilirubin Negative, Urine Urobilinogen Normal, Ur Leukocyte Esterase Negative, Urine RBC 0 SEEN, Urine WBC 0 SEEN, Ur Squamous Epith Cells 0 SEEN, Urine Bacteria 0 SEEN, Urine Mucus 0 SEEN 04/02/19 13:45: Urine Opiates Screen NEGATIVE, Urine Methadone Screen NEGATIVE, Ur Barbiturates Screen POSITIVE H, Ur Phencyclidine Scrn NEGATIVE, Ur Amphetamines Screen NEGATIVE, U Methamphetamin-MDMA NEGATIVE, U Benzodiazepines Scrn POSITIVE H, Urine Cocaine Screen NEGATIVE, U Cannabinoids Screen NEGATIVE, Ur Drug Screen Comment Assessment/Plan All Active Problems Alcohol abuse (Acute) Alcoholism /alcohol abuse (Resolved) 38 y/o admitted for acute alcohol withdrawal 1. Acute alcohol withdrawal * Admit to [facility] with telemetry * Urine tox positive for NSAID as a pains and barbiturates as well though he denies taking any of them. * Last drink was a few hours prior to admission when he states he drank 1 can of beer. * Start on alcohol withdrawal protocol with Librium. * Monitor CIWA score. * P.o. folic acid, thiamine and Multivites. * * DVT prophylaxis: low risk; encourage ambulation Code Visit Inpatient E&M: 57538 Init Hosp L3
--- NOTE | 2019-04-02 14:56 | NURSING ---
MED SURG KORAM ALCOHOL WITHDRAWAL
--- NOTE | 2019-04-02 14:59 | CM.ED ---
Social Work Consult: Substance Abuse. Informant: Dr. Gracia Chief Complaint: Patient stating to be seeking detox from alcohol. Patient stating last drink was this morning. Marital/Social History: and currently working on a divorce. Living Situation: At first patient stated to be homeless later patient stated to live with a friend. Support/Resources: Limited support. Patient identifies a few friends as support but these friends drink alcohol with patient and would not be supportive to helping patient with substance abuse. History: None Education/Employment History: Went to work today, and was fired on the spot due to showing up intoxicated. Patient stating to have completed the 10th grade and to be able to read and write so so. Patient denies any comprehension/understanding concerns for verbal communication. Mental Health Treatment/history: Depression, Anxiety, and ADHD. Patient stating I am not able to stay still. Patient denies any current medication management or active counseling. Patient stating I probably should be in counseling. Patient denies any history of counseling services. Abuse Issues: Patient denies but then states I was adopted. Patient stating to have been adopted at 1 1/2 years old. Substance Abuse Hx: Patient stating substance of choice is Alcohol. Patient stating to drink around a 30 pack a day. Patient stating to drink all day. Patient stating to have recently got out of inpatient treatment for alcohol abuse this past Saturday (03/28/19). Patient stating to have been in rehab for a week and to have discharged self. Patient stating to have gotten home and started to drink right away on Saturday. Patient stating motivation for seeking help with substance abuse is I have a kid on the way. This social services counselor inquiring when baby is due, patient stating I am not sure, it is a mess. Patient stating to occasionally smoke THC and denies any tobacco use. Patient stating to use meth some. Patient stating last use of meth was awhile ago. Patient stating I can stay away from meth. Patient denies any other substance abuse/use. Risk to Self/Others: Patient denies any suicidal or homicidal thoughts/plans. Patient denies any history of this. Note: per chart review patient did have a previous ED visit for suicidal thoughts. Mental Status Exam: A&Ox3 Appearance/General Behavior: Disheveled, tired/sleepy. Mood/Affect: Appropriate. Communication Pattern: Responds to questions. Thought Process: Appropriate. Judgement: Poor Assessment: Met with patient in room. Introduced self as well as social services counselor role. Patient agreeable to meeting with this social services counselor. Patient stating to want to be admitted for detox and then would like to return to an inpatient setting for further treatment. Educated patient on process and that social services counselor will continue to follow up with patient as needed. Collaborating with Dr. Gracia. Dr. Gracia updated on social services counselor assessment. Plan is for patient to admit for detox. Denis FERRO, MILES
--- NOTE | 2019-04-02 15:12 | NURSING ---
NEW ROOM [id number]
[2019-04-02] MEDS: chlordiazePOXIDE 25 MG Capsule PO ×2 (17:07→22:03)
[2019-04-02] MEDS: Methocarbamol 750 MG Tablet PO (20:29)
[2019-04-02] MEDS: hydrOXYzine PAM 25 MG Capsule 50 MG PO (20:29)
--- NOTE | 2019-04-02 20:51 | NURSING ---
Pt stated that he may not be here long that the [place] police our here to arrest him. Pt called the dispatch center and was rambling on. Office Albert came to see pt and pt still thinks he is going to [facility]
[2019-04-03] VITALS (11 sets, daily range): BP systolic 93–101; BP diastolic 49–59; PULSE 69–94; RESP 15–17; TEMP 36.4–37.2; O2SAT 97–100
[2019-04-03] MEDS: chlordiazePOXIDE 25 MG Capsule PO ×3 (04:03→18:27)
[2019-04-03] MEDS: Folic Acid 1 MG Tablet PO (09:03)
[2019-04-03] MEDS: Thiamine Hydrochloride 100 MG Tablet PO (09:03)
[2019-04-03] MEDS: Multivitamins,Therapeutic Tablet 1 TABLET PO (09:03)
--- NOTE | 2019-04-03 09:27 | PN_ITS ---
Patient Problems: Active and Suspected Problems Alcohol abuse (Acute) Subjective: Patient seen and examined. He had no complaints. He had an uneventful night. Vitals/I&O's: Vital Signs Temp Pulse Resp BP Pulse Ox 97.7 F L 69 16 95/52 L 100 04/03/19 07:26 04/03/19 07:30 04/03/19 07:26 04/03/19 07:26 04/03/19 07:26 Oxygen Delivery Method Room Air Weight: 121 lb 14.4 oz Body Mass Index (BMI) 19.6 Intake and Output for Last 24 Hours 04/01/19 04/02/19 04/03/19 23:59 23:59 23:59 Intake Total 390 / 390 120 / 120 Output Total 800 / 800 200 / 200 Balance -410 / -410 -80 / -80 General: Alert, Oriented x3, Cooperative, HEENT: Atraumatic, PERRLA, EOMI, Normocephalic Oral: Dry Mucosa Neck: Supple, No JVD, Negative Carotid Bruits Lungs: Clear to auscultation, Normal air movement, No rhonchi, No wheeze, No rales Cardiovascular: Regular rate, Regular Rhythm, Normal S1, Normal S2, No murmurs Abdomen: Bowel Sounds Present, Soft, Non Tender, Non-Distended, No Hepato- splenomegaly Extremities: No clubbing, No cyanosis, No edema, Capillary Refill Less than 3 Seconds, No Calf Tenderness, Skin: No rashes, No breakdown Musculoskeletal: No Tenderness to Palpation of Joints or Extremities Lymphatic: No Cervical, Supraclavicular, or Inguinal Adenopathy Neurological: Cranial nerves II-XII grossly intact, Neuro grossly intact, Motor Exam 5/5 strength throughout Psych/Mental Status: Flat Affect, Alert and oriented to time, place, person, mood and affect Laboratory Results 04/02/19 13:33: WBC 5.4, RBC 4.68, Hgb 13.6, Hct 41.8, MCV 89.3, MCH 29.1, MCHC 32.5, RDW Std Deviation 45.7 H, RDW Coeff of Hugo 14.0, Plt Count 244, MPV 10.1, Immature Gran % (Auto) 0.700, Neut % (Auto) 75.5 H, Lymph % (Auto) 18.5 L, [place] % (Auto) 4.3, Eos % (Auto) 0.6, Baso % (Auto) 0.4, Absolute Neuts (auto) 4.1, Absolute Lymphs (auto) 0.99, Nucleated RBC % 0 04/02/19 13:33: Sodium 140, Potassium 3.9, Chloride 106, Carbon Dioxide 30.0, Anion Gap 4 L, BUN 8, Creatinine 0.90, Estim Creat Clear Calc 101.41, Est GFR (MDRD) Af Amer 122, Est GFR (MDRD) Non-Af 101, BUN/Creatinine Ratio 8.9 L, Glucose 84, Calcium 8.9, Magnesium 2.4, Total Bilirubin 0.10 L, AST 14 L, ALT 23, Alkaline Phosphatase 54, Total Protein 7.4, Albumin 3.7, Globulin 3.7, Albumin/Globulin Ratio 1.0, Lipase 59 L 04/02/19 13:33: Ethyl Alcohol < 3.0 04/02/19 13:45: Urine Color Yellow, Urine Clarity Clear, Urine pH 8.0, Ur Specific Ralph 1.010, Urine Protein Negative, Urine Glucose (UA) Normal, Urine Ketones Negative, Urine Occult Blood Negative, Urine Nitrite Negative, Urine Bilirubin Negative, Urine Urobilinogen Normal, Ur Leukocyte Esterase Negative, Urine RBC 0 SEEN, Urine WBC 0 SEEN, Ur Squamous Epith Cells 0 SEEN, Urine Bacte lukas 0 SEEN, Urine Mucus 0 SEEN 04/02/19 13:45: Urine Opiates Screen NEGATIVE, Urine Methadone Screen NEGATIVE, Ur Barbiturates Screen POSITIVE H, Ur Phencyclidine Scrn NEGATIVE, Ur Amphetamines Screen NEGATIVE, U Methamphetamin-MDMA NEGATIVE, U Benzodiazepines Scrn POSITIVE H, Urine Cocaine Screen NEGATIVE, U Cannabinoids Screen NEGATIVE, Ur Drug Screen Comment Current Medications Chlordiazepoxide (Librium) 50 mg PO Q6H ELIE; Taper Stop: 04/05/19 18:59 Last Admin: 04/03/19 04:03 Dose: 50 mg Documented by: Dicyclomine HCl (Bentyl) 20 mg PO Q6H PRN PRN PRN Reason: abdominal discomfort Folic Acid (Folic Acid) 1 mg PO DAILYCM ELIE Stop: 04/05/19 08:01 Last Admin: 04/03/19 09:03 Dose: 1 mg Documented by: Glucagon () 1 mg IM .X1 PRN PRN Reason: Hypoglycemia Hydroxyzine Pamoate (Vistaril Pamoate Capsule) 50 mg PO Q6H PRN PRN PRN Reason: Mild Anxiety (score 1/3) Last Admin: 04/02/19 20:29 Dose: 50 mg Documented by: Dextrose (Dextrose 10%-Water) 250 mls @ 999 mls/hr IV .Q16M PRN; Protocol PRN Reason: HYPOGLYCEMIA Lorazepam (Ativan) 1 mg IV Q4H PRN PRN PRN Reason: Severe Anxiety Methocarbamol (Methocarbamol) 750 mg PO Q6H PRN PRN PRN Reason: Muscle Aches Last Admin: 04/02/19 20:29 Dose: 750 mg Documented by: [facility]ivit[facility] ([facility]amin) [facility] Last Admin: 04/03/19 09:03 Dose: 1 tablet Documented by: Nutritional Formula (Lactose Free) (Ensure Enlive) 120 ml PO 4X/DAY [facility] Last Admin: 04/03/19 09:05 Dose: 120 ml Documented by: Ondansetron HCl (Zofran) 4 mg IV Q8H PRN PRN PRN Reason: NAUSEA/VOMITING Sodium Chloride () 10 - 40 ml IV UD PRN PRN Reason: SALINE FLUSH Thiamine HCl (Vitamin B1) [facility] Stop: 04/05/19 08:01 Last Admin: 04/03/19 09:03 Dose: 100 mg Documented by: STROKE Vital Signs/Narrative: Vital Signs Temp Pulse Resp BP Pulse Ox 04/03/19 07:30 69 04/03/19 07:26 97.7 F L 82 16 95/52 L 100 Medical Necessity - Tobacco Use Smoking Status: Current some day smoker Tobacco Use: Non-smoker Assessment/Plan All Active Problems Alcohol abuse (Acute) Alcoholism /alcohol abuse (Resolved) 1. Acute alcohol withdrawal * CIWA score today is 1. * On alcohol withdrawal protocol with Librium. * P.o. folic acid, thiamine and Multivites. * 2. History of lymphoma: States he was treated at [facility] many years ago. To Follow-up with his oncologist on outpatient basis. DVT prophylaxis: low risk; encourage ambulation Code Visit Inpatient E&M: 44536 Subs Hosp L2
--- NOTE | 2019-04-03 15:32 | CASEMGMT ---
SOCIAL WORK MET WITH PATIENT THIS AFTERNOON TO DISCUSS DISCHARGE PLANNING. INTRODUCED ROLE. PATIENT WANTING INPATIENT TREATMENT AFTER DETOX. DISCUSSED OPTIONS. PATIENT REPORTS WAS IN RECOR IN [place] AND LEFT. PATIENT OPEN TO REFERRAL TO [facility]. PATIENT ALSO GIVEN INFORMATION ON [facility]. REFERRAL FAXED TO [facility] AT THIS TIME (f) [phone]. Prerna. OLIVIA, SQL ANALYST, LENS GENERATOR.
[2019-04-04] VITALS (11 sets, daily range): BP systolic 88–108; BP diastolic 45–64; PULSE 66–96; RESP 14–18; TEMP 36.3–37; O2SAT 97
--- NOTE | 2019-04-04 09:37 | PN_ITS ---
Patient Problems: Active and Suspected Problems Alcohol abuse (Acute) Subjective: Patient seen and examined. He has no complaints. Review of systems otherwise negative. Vitals/I&O's: Vital Signs Temp Pulse Resp BP Pulse Ox 98.0 F 76 16 96/60 97 04/04/19 06:10 04/04/19 06:59 04/04/19 06:10 04/04/19 06:10 04/04/19 06:10 Oxygen Delivery Method Room Air Weight: 121 lb 14.4 oz Body Mass Index (BMI) 19.6 Intake and Output for Last 24 Hours 04/02/19 04/03/19 04/04/19 23:59 23:59 23:59 Intake Total 390 / 390 470 / 820 350 / 350 Output Total 800 / 800 200 / 200 Balance -410 / -410 270 / 620 350 / 350 General: Alert, Oriented x3, Cooperative, HEENT: Atraumatic, PERRLA, EOMI, Normocephalic Oral: Dry Mucosa Neck: Supple, No JVD, Negative Carotid Bruits Lungs: Clear to auscultation, Normal air movement, No rhonchi, No wheeze, No rales Cardiovascular: Regular rate, Regular Rhythm, Normal S1, Normal S2, No murmurs Abdomen: Bowel Sounds Present, Soft, Non Tender, Non-Distended, No Hepato- splenomegaly Extremities: No clubbing, No cyanosis, No edema, Capillary Refill Less than 3 Seconds, No Calf Tenderness, Skin: No rashes, No breakdown Musculoskeletal: No Tenderness to Palpation of Joints or Extremities Lymphatic: No Cervical, Supraclavicular, or Inguinal Adenopathy Neurological: Cranial nerves II-XII grossly intact, Neuro grossly intact, Motor Exam 5/5 strength throughout Psych/Mental Status: Flat Affect, Alert and oriented to time, place, person, mood and affect Current Medications Chlordiazepoxide (Librium) 50 mg PO Q8H ELIE; Taper Stop: 04/05/19 18:59 Last Admin: 04/04/19 02:31 Dose: Not Given Documented by: Dicyclomine HCl (Bentyl) 20 mg PO Q6H PRN PRN PRN Reason: abdominal discomfort Folic Acid (Folic Acid) 1 mg PO DAILYCM ELIE Stop: 04/05/19 08:01 Last Admin: 04/03/19 09:03 Dose: 1 mg Documented by: Glucagon () 1 mg IM .X1 PRN PRN Reason: Hypoglycemia Hydroxyzine Pamoate (Vistaril Pamoate Capsule) 50 mg PO Q6H PRN PRN PRN Reason: Mild Anxiety (score 1/3) Last Admin: 04/02/19 20:29 Dose: 50 mg Documented by: Dextrose (Dextrose 10%-Water) 250 mls @ 999 mls/hr IV .Q16M PRN; Protocol PRN Reason: HYPOGLYCEMIA Lorazepam (Ativan) 1 mg IV Q4H PRN PRN PRN Reason: Severe Anxiety Methocarbamol (Methocarbamol) 750 mg PO Q6H PRN PRN PRN Reason: Muscle Aches Last Admin: 04/02/19 20:29 Dose: 750 mg Documented by: [facility]ivit[facility] ([facility]amin) [facility] Last Admin: 04/03/19 09:03 Dose: 1 tablet Documented by: Nutritional Formula (Lactose Free) (Ensure Enlive) 120 ml PO 4X/DAY [facility] Last Admin: 04/03/19 21:54 Dose: 120 ml Documented by: Ondansetron HCl (Zofran) 4 mg IV Q8H PRN PRN PRN Reason: NAUSEA/VOMITING Sodium Chloride () 10 - 40 ml IV UD PRN PRN Reason: SALINE FLUSH Thiamine HCl (Vitamin B1) [facility] Stop: 04/05/19 08:01 Last Admin: 04/03/19 09:03 Dose: 100 mg Documented by: STROKE Vital Signs/Narrative: Vital Signs Temp Pulse Resp BP Pulse Ox 04/04/19 06:59 76 04/04/19 06:10 98.0 F 76 16 96/60 97 Medical Necessity - Tobacco Use Smoking Status: Current some day smoker Tobacco Use: Non-smoker Assessment/Plan All Active Problems Alcohol abuse (Acute) Alcoholism /alcohol abuse (Resolved) 1. Acute alcohol withdrawal * CIWA score today is 1. * On alcohol withdrawal protocol with Librium. * P.o. folic acid, thiamine and Multivites. * 2. History of lymphoma: States he was treated at [facility] many years ago. To Follow-up with his oncologist on outpatient basis. DVT prophylaxis: low risk; encourage ambulation Disposition: for DC tomorrow Code Visit Inpatient E&M: 84885 Subs Hosp L2
[2019-04-04] MEDS: Thiamine Hydrochloride 100 MG Tablet PO (10:37)
[2019-04-04] MEDS: Folic Acid 1 MG Tablet PO (10:37)
[2019-04-04] MEDS: Multivitamins,Therapeutic Tablet 1 TABLET PO (10:37)
[2019-04-04] MEDS: hydrOXYzine PAM 25 MG Capsule 50 MG PO (13:48)
[2019-04-04] MEDS: chlordiazePOXIDE 25 MG Capsule PO (18:01)
[2019-04-05] VITALS (8 sets, daily range): BP systolic 88–106; BP diastolic 51–60; PULSE 65–102; RESP 16; TEMP 36.6–37.6; O2SAT 97–98
--- NOTE | 2019-04-05 08:53 | NURSING ---
This nurse checked Vital Signs while Dr. Padilla in the room. Pt was drowsy. Dr. Padilla does not want last dose of Libirum given and orders for 1L bolus.
[2019-04-05] MEDS: 0.9% Normal Saline 1,000 ML 999 ML IV (10:05)
[2019-04-05] MEDS: 0.9% Saline Lock 10 ML Syringe IV (10:05)
--- NOTE | 2019-04-05 10:07 | DCINST_ITS ---
- Discharge Diagnoses Current Active Problems: Current Active and Chronic Problems Alcohol abuse (Acute) You will use the following diet at home:: No restrictions Your food should be the consistency of: Regular Your liquids should be the consistency of: Regular/Thin Discharge Activity: Return to Normal Activity Weight Bearing Status: Weight bearing as tolerated Call your doctor if you observe: Fever of 101 or Higher, Shortness of breath, Dizziness Instructions: The Impact of Alcoholism, Alcoholism: Getting Help Additional Instructions: follow up with [facility] as scheduled Allergies/Adverse Reactions: Allergies naproxen Allergy (Verified 04/02/19 12:52) Hives tramadol Allergy (Verified 04/02/19 12:52) Itching hydromorphone HCl [From Dilaudid] Adverse Reaction (Verified 04/02/19 12:52) Nausea Medications to take at Discharge NK 04/02/19 Primary Care Physician: Care Physician,No Primary [Primary Care Provider] - Test Results: Test results from this visit will be discussed in further detail at your follow- up appointment, if applicable. Please Follow Up With: Hodan Pleitez When: 1-2 weeks to establish PCP relationship Proposed Discharge Date: 04/05/19
--- NOTE | 2019-04-05 10:09 | DS.PCM_ITS ---
Discharge Date and Diagnosis - Problem List Patient Problems: Active and Suspected Problems Alcohol abuse (Acute) Date of Admission: 04/02/19 Date of Discharge: 04/05/19 - Primary Discharge Diagnosis Active and Suspected Problems Acute alcohol withdrawal Hospital Course and Treatment Operations: None Procedures: None Summary of Care Provided: The patient is a 38 year old M with a past medical history of alcohol abuse. Patient was on admission at a detox facility and [facility] but left lesser today because he said the place was very dirty. He sated he drank like a fish with his buddies and cannot quantify how much he drank. He has been drinking consistently since then. He was recently fired from his job and decided that he needed help with detox and so he decided to come in. Patient states he is tried quitting numerous times in the past but is just unsuccessful. He complained of feeling miserable but denied any fever or chills, nausea or vomiting. He admitted to [facility] but denied palpitations, abdominal pain or any other symptoms. In the ED, vitals were essentially unremarkable he was saturating at 100% on room air. Chemistry was unremarkable and CBC was also unremarkable. Urine tox was positive for barbiturates and benzodiazepines though he denies taking any pills or any other illicit substances. He was admitted to be managed for acute alcohol withdrawal. He was started on alcohol withdrawal protocol with Librium. Urine tox was negative. BC and CMP done were unremarkable. Patient tolerated 3-day detox process and his CIWA score was 0 at time of discharge. He was discharged home on 04/05/2019. Patient did not want to go to an inpatient rehab facility and preferred to follow-up with 180 on outpatient basis after discharge. Patient seen and examined prior to discharge. He had no complaints and review of systems otherwise negative. Labs and vitals reviewed. Home medication r eviewed and reconciled. o/e: Vital Signs Height 5 ft 6 in Weight: 121 lb 14.4 oz Weight in Pounds 121.9 lbs Pulse Ox 98 Temperature 98.0 F Pulse Rate 83 Respiratory Rate 16 Blood Pressure [BP] 88/51 Blood Pressure 106/60 Blood Pressure Position [BP] Semi-Fowlers Blood Pressure Position Semi-Fowlers General: Alert, Oriented x3, Cooperative, HEENT: Atraumatic, PERRLA, EOMI, Normocephalic Oral: Dry Mucosa Neck: Supple, No JVD, Negative Carotid Bruits Lungs: Clear to auscultation, Normal air movement, No rhonchi, No wheeze, No rales Cardiovascular: Regular rate, Regular Rhythm, Normal S1, Normal S2, No murmurs Abdomen: Bowel Sounds Present, Soft, Non Tender, Non-Distended, No Hepato- splenomegaly Extremities: No clubbing, No cyanosis, No edema, Capillary Refill Less than 3 Seconds, No Calf Tenderness, Skin: No rashes, No breakdown Musculoskeletal: No Tenderness to Palpation of Joints or Extremities Lymphatic: No Cervical, Supraclavicular, or Inguinal Adenopathy Neurological: Cranial nerves II-XII grossly intact, Neuro grossly intact, Motor Exam 5/5 strength throughout Psych/Mental Status: Flat Affect, Alert and oriented to time, place, person, mood and affect Patient had no PCP so he was referred to the [facility] to establish PCP relationship. Patient Problems: Active and Suspected Problems Alcohol abuse (Acute) - Physical Exam Vitals/I&O's: Vital Signs Temp Pulse Resp BP Pulse Ox 97.8 F 73 16 96/54 L 97 04/05/19 08:41 04/05/19 08:41 04/05/19 08:41 04/05/19 08:41 04/05/19 08:41 Oxygen Delivery Method Room Air Weight: 121 lb 14.4 oz Body Mass Index (BMI) 19.6 Intake and Output for Last 24 Hours 04/03/19 04/04/19 04/05/19 23:59 23:59 23:59 Intake Total 470 / 820 2009 500 / 500 Output Total 200 / 200 Balance 270 / 620 2009 500 / 500 Current Medications Chlordiazepoxide (Librium) 25 mg PO Q12H ELIE; Taper Stop: 04/05/19 18:59 Last Admin: 04/05/19 06:38 Dose: Not Given Documented by: Dicyclomine HCl (Bentyl) 20 mg PO Q6H PRN PRN PRN Reason: abdominal discomfort Glucagon () 1 mg IM .X1 PRN PRN Reason: Hypoglycemia Hydroxyzine Pamoate (Vistaril Pamoate Capsule) 50 mg PO Q6H PRN PRN PRN Reason: Mild Anxiety (score 1/3) Last Admin: 04/04/19 13:48 Dose: 50 mg Documented by: Dextrose (Dextrose 10%-Water) 250 mls @ 999 mls/hr IV .Q16M PRN; Protocol PRN Reason: HYPOGLYCEMIA Lorazepam (Ativan) 1 mg IV Q4H PRN PRN PRN Reason: Severe Anxiety Methocarbamol (Methocarbamol) 750 mg PO Q6H PRN PRN PRN Reason: Muscle Aches Last Admin: 04/02/19 20:29 Dose: 750 mg Documented by: Multivitamins (Multivitamin) 1 tablet PO DAILYCM [facility] Last Admin: 04/04/19 10:37 Dose: 1 tablet Documented by: Nutritional Formula (Lactose Free) (Ensure Enlive) 120 ml PO 4X/DAY [facility] Last Admin: 04/04/19 21:26 Dose: 120 ml Documented by: Ondansetron HCl (Zofran) 4 mg IV Q8H PRN PRN PRN Reason: NAUSEA/VOMITING Sodium Chloride () 10 - 40 ml IV UD PRN PRN Reason: SALINE FLUSH Last Admin: 04/05/19 10:05 Dose: 10 ml Documented by: Discharge Diet: Low fat/ Low Cholesterol Discharge Activity: Return to Normal Activity Weight Bearing Status: Weight bearing as tolerated Call your doctor if you observe: Fever of 101 or Higher, Shortness of breath, Dizziness Home Medications: Medications to take at Discharge NK 04/02/19 Primary Care Physician: Care Physician,No Primary [Primary Care Provider] - Please Follow Up With: Hodan Pleitez When: 1-2 weeks to establish PCP relationship Patient Instructions: The Impact of Alcoholism, Alcoholism: Getting Help Disposition: Home Minutes spent on discharge:: 35 Patient Condition:: Stable Medical Necessity - Tobacco Use Smoking Status: Current some day smoker Tobacco Use: Non-smoker Meaningful Use Info Meaningful Use Diagnoses (Choose all that apply): None applicable Code Visit Inpatient E&M: 46284 Disch Hosp
[2019-04-05] MEDS: Multivitamins,Therapeutic Tablet 1 TABLET PO (13:21)
[2019-04-05] MEDS: Thiamine Hydrochloride 100 MG Tablet PO (13:21)
[2019-04-05] MEDS: Folic Acid 1 MG Tablet PO (13:21)
== END 2019-04-05 19:00 | disposition home or self-care (01) | DRG 775 ==
LOC: ED 14:54 → MS3 04-03 09:05
PROVIDERS: Admitting Provider Student in an Organized Health Care Education/Training Program; Emergency Provider Emergency Medicine; Visit Provider Student in an Organized Health Care Education/Training Program
DX: F10.239 Alcohol dependence with withdrawal, unspecified (principal); F17.200 Nicotine dependence, unspecified, uncomplicated; Z85.72 Personal history of non-Hodgkin lymphomas; Y90.0 Blood alcohol level of less than 20 mg/100 ml; F10.229 Alcohol dependence with intoxication, unspecified
CPT/HCPCS: 80053; 80307; 80320; 81001; 83690; 83735; 85025; 96360; 99218; 99284; J7030; A4216; G0378; G0480

== ENCOUNTER 2019-04-27 22:36 | Emergency (ER) | payer SELFPAY ==
[2019-04-02 15:47] VITALS: BMI 19.6
[2019-04-27 22:36] VITALS: BP 122/69; PULSE 114; RESP 18; TEMP 36.8; O2SAT 97; BMI 25.8
--- NOTE | 2019-04-27 22:52 | RAD_ITS ---
HISTORY: C/O COUGH , GENERAL ACHES AND MAURER EXAM: XR Chest 2 Views: COMPARISON: August 01, 2018 FINDINGS: # of images incl. paperwork: 2 Pleural-parenchymal lung disease is mild but persists. Surgical clips within the right neck. Tiny amount of blunting to the costophrenic sulci is similar. Pulmonary hyperexpansion seems present. No focal airspace disease is differentiated on the background of some mild chronic underlying disease suspected Heart is not enlarged. No acute osseous pathology perceived. Pulmonary vascularity is distinct. No effusions. RAD/Chest PA and Lateral IMPRESSION: No acute disease. Fairly per advanced chronic disease with pleural-parenchymal disease in lung apices and pulmonary hyperexpansion suggestive of probable smoking history.. at 2341 Reported and signed by: Mars Wren MD Electronically Signed: Mars Wren MD at 23:40 EDT Tel , Service support ,
--- NOTE | 2019-04-27 22:58 | ED.DCSUM_ITS ---
History of Present Illness Chief Complaint: Cough Narrative: Patient presenting secondary to generalized illness. Patient reports that since yesterday he has been having feelings of head to toe body aches, mild sore throat, subjective fevers. He reports that he has a mild cough associated with this. No nausea vomiting or diarrhea. He denies any abdominal pain. Patient reports that he has not been taking any medications for this. Patient has an underlying history of lymphoma in the distant past that has been in remission. He is not currently on any medications. Past Medical History - Allergies and Home Meds Allergies/Adverse Reactions: Allergies naproxen Allergy (Verified 04/02/19 12:52) Hives tramadol Allergy (Verified 04/02/19 12:52) Itching acetaminophen [From Vicodin] Adverse Reaction (Verified 04/27/19 22:40) Nausea hydrocodone [From Vicodin] Adverse Reaction (Verified 04/27/19 22:40) Nausea hydromorphone HCl [From Dilaudid] Adverse Reaction (Verified 04/02/19 12:52) Nausea Primary Care Physician: Care Physician,No Primary [Primary Care Provider] - Past Medical History: - - Lymphoma Surgical History: no surgical history Smoking Status: Never smoker - Family History Maternal Family History: Reports: - - patient adopted, so doesnt know about family history Review of Systems All systems negative except as indicated General: Reports: Chills, Fever, Malaise Eyes: Denies: Visual changes - bilaterally, Diplopia ENT: Reports: Sore throat Cardiovascular: Denies: Chest pain, Palpitations Respiratory: Reports: Cough Gastrointestinal: Denies: Abdominal pain, Nausea, Vomiting, Diarrhea, Melena, Hematochezia Genitourinary: Denies: Dysuria, Hematuria, Frequency Musculoskeletal: Denies: Back pain, Extremity Pain Skin: Denies: Rash, Wounds Neurological: Denies: Headache, Weakness, Numbness Physical Exam Vital Signs/Narrative: Vital Signs Temp Pulse Resp BP Pulse Ox 04/27/19 22:36 98.3 F 114 H 18 122/69 H 97 Inital Vital Signs reviewed: Yes General: Well nourished, Well developed, No Acute Distress Head: Normocephalic, Atraumatic Eyes: Perrl, EOMI ENT: Moist mucous membranes, No rhinorrhea Neck: Supple, Nontender, - - No meningismus Cardiovascular: Regular rate, Regular rhythm, No murmurs Respiratory: No distress, CTA bilaterally, Chest nontender Abdomen: Soft, Nontender, Nondistended, Normal bowel sounds, No masses Back: Nontender, Normal Inspection Extremities: Nontender, No edema Skin: Normal color, No rash Neurological: Alert, Oriented x3, Cranial nerves II-XII grossly intact, Normal Strength, Normal Sensation Psychological: Normal affect, Normal Mood Diagnostic/Tx/Re-eval Chest X-Ray - ED: 2 View, Read by ED Physician, Read by Radiologist, No Acute Disease Clinical Impression(s) from Imaging Studies Chest X-Ray 04/27/19 22:52 IMPRESSION: No acute disease. Fairly per advanced chronic disease with pleural-parenchymal disease in lung apices and pulmonary hyperexpansion suggestive of probable smoking history.. at 2341 Reported and signed by: Mars Wren MD Electronically Signed: Mars Wren MD at 23:40 EDT Tel , Service support , Laboratory Data 04/27/19 04/27/19 23:05 23:05 WBC 6.7 RBC 4.49 L Hgb 12.9 L Hct 39.1 L MCV 87.1 MCH 28.7 MCHC 33.0 RDW Std Deviation 44.3 H RDW Coeff of Hugo 13.8 Plt Count 201 MPV 10.3 Immature Gran % (Auto) 0.300 Neut % (Auto) 83.1 H Lymph % (Auto) 10.5 L [place] % (Auto) 4.8 Eos % (Auto) 1.1 Baso % (Auto) 0.2 Absolute Neuts (auto) 5.5 Absolute Lymphs (auto) 0.70 L Nucleated RBC % 0 Sodium 140 Potassium 3.6 Chloride 107 Carbon Dioxide 28.0 Anion Gap 5 BUN 17 Creatinine 1.14 Estim Creat Clear Calc 80.06 Est GFR (MDRD) Af Amer 93 Est GFR (MDRD) Non-Af 77 BUN/Creatinine Ratio 14.9 Glucose 95 Calcium 8.6 - Medical Decision Making Patient presented secondary to generalized illness. Patient had a past history of lymphoma, so work-up was obtained. CBC shows a normal white blood cell count with somewhat of a neutrophilic predominance and no blasts. Chemistry was found to be unremarkable. Flu swab was negative, chest x-ray by my personal review as well as radiology found to be negative. Patient was given Toradol and fluids and repeat evaluation showed symptomatic improvement. Patient likely suffering from a viral illness at this time he was recommended expectant management measures and follow-up with primary care. ED Disposition - Plan for ED Patient: Disposition: Home or Assisted Living Diagnosis: Viral illness Instructions: FEBRILE ILLNESS, Uncertain Cause (Adult) Referrals: Hodan Will [NON-STAFF] - 1 Week if not improving
[2019-04-27] MEDS: Ketorolac 15 MG/ML Vial IV (23:06)
[2019-04-27] MEDS: 0.9% Normal Saline 1,000 ML 1000 ML IV (23:06)
[2019-04-27 23:15] LABS: Absolute Neutrophil Count 5.5 X10^3/uL (2.0-7.7); Basophil# 0.01 X10^3/uL; Basophil% 0.2 % (0-1); Eosinophil# 0.07 X10^3/uL; Eosinophils% 1.1 % (0-5); Hematocrit 39.1 % (40-54); Hemoglobin 12.9 g/dL (13.0-16.5); Lymphocyte % 10.5 % (19-41); Mean Corpuscular Hgb 28.7 pg (27.0-32.0); Mean Corpuscular Volume 87.1 fL (80-94); Mean Platelet Vol. 10.3 fl (6.2-12.0); Monocyte# 0.32 X10^3/uL; Monocyte% 4.8 % (0-10); NRBC Flagged by Analyzer 0 % (0-5); Neutrophil # 5.54 X10^3/uL (2.7-7.7); Neutrophil % 83.1 % (47-70); Platelet Count 201 K/mm3 (150-450); RBC Distribution Width CV 13.8 % (11.6-14.6); RBC Distribution Width SD 44.3 fl (35.1-43.9); Red Blood Count 4.49 M/mm3 (4.6-6.2); White Blood Count 6.7 K/mm3 (4.4-11.0)
[2019-04-27 23:26] LABS: Anion Gap 5 (5-15); BUN 17 mg/dL (7-18); BUN/Creat Ratio 14.9 RATIO (10-20); Calcium,Total 8.6 mg/dL (8.5-10.1); Chloride 107 mmol/L (98-107); Creatinine, Serum 1.14 mg/dL (0.70-1.30); EST Glomerular Filtration Rate 77 mL/min (>60); Est Glom Filt Rate - Afr Amer 93 mL/min (>60); Estimated Creatinine Clearance 80.06 ml/min; Glucose 95 mg/dL (74-106); Potassium 3.6 mmol/L (3.5-5.1); Sodium Level 140 mmol/L (136-145)
[2019-04-28 00:16] VITALS: PULSE 80; RESP 16; O2SAT 98
== END 2019-04-28 00:18 | disposition home or self-care (01) ==
PROVIDERS: Emergency Provider Emergency Medicine
DX: B34.9 Viral infection, unspecified (principal); R05 Cough; J02.9 Acute pharyngitis, unspecified; M79.10 Myalgia, unspecified site; Z85.72 Personal history of non-Hodgkin lymphomas
CPT/HCPCS: 71046; 80048; 85025; 87804; 96361; 96374; 99283; J7030; A4216

== ENCOUNTER 2019-09-19 05:48 | Inpatient (IN) | payer SELFPAY ==
[2019-09-19 05:49] VITALS: BP 109/71; PULSE 79; RESP 18; TEMP 36.2; O2SAT 97; BMI 19.8
--- NOTE | 2019-09-19 06:05 | ED.VIS.GEN ---
History of Present Illness Chief Complaint: ETOH Intox Narrative: Patient arrives wishing for alcohol detox. Apparently he drinks 24-30 beers a day. He did so tonight and he is intoxicated but he called crisis and told him that he wants detox and was sent to the emergency department. He has no systemic complaints. Past Medical History - Allergies and Home Meds Allergies/Adverse Reactions: Allergies naproxen Allergy (Verified 09/19/19 05:53) Hives tramadol Allergy (Verified 09/19/19 05:53) Itching acetaminophen [From Vicodin] Adverse Reaction (Verified 09/19/19 05:53) Nausea hydrocodone [From Vicodin] Adverse Reaction (Verified 09/19/19 05:53) Nausea hydromorphone HCl [From Dilaudid] Adverse Reaction (Verified 09/19/19 05:53) Nausea Primary Care Physician: Care Physician,No Primary [Primary Care Provider] - Past Medical History: - - History of non-Hodgkin's lymphoma in remission, alcoholism Surgical History: no surgical history Smoking Status: Current every day smoker - Family History Maternal Family History: Reports: - - patient adopted, so doesnt know about family history Review of Systems General: Denies: Fever Eyes: Denies: Visual changes - bilaterally ENT: Denies: Rhinorrhea, Sore throat Cardiovascular: Denies: Chest pain Respiratory: Denies: Dyspnea Gastrointestinal: Denies: Nausea, Vomiting Musculoskeletal: Denies: Neck pain Skin: Denies: Rash Neurological: Denies: Weakness Psych: Reports: Depression. Denies: Suicidal thoughts, Suicidal ideations Endocrine: Denies: Polyuria, Polydipsia Allergy: Denies: Swelling of the mouth, Swelling of the tongue Physical Exam Vital Signs/Narrative: Vital Signs Temp Pulse Resp BP Pulse Ox 09/19/19 05:49 97.1 F L 79 18 109/71 97 General: - - Patient is sleeping as I walk-in I woke him up he answers questions relatively appropriately although he does have a glazed look on his eyes. I do smell fermentation. He does not slur his speech Head: Normocephalic, Atraumatic Eyes: Perrl, EOMI ENT: Moist mucous membranes, No rhinorrhea Neck: Supple Cardiovascular: Regular rate, Regular rhythm Respiratory: No distress, CTA bilaterally Abdomen: Soft, Nontender Back: Nontender, Normal Inspection Extremities: Nontender, No edema Skin: Normal color, No rash Neurological: Alert, Oriented x3 Psychological: Normal affect Diagnostic/Tx/Re-eval - Medical Decision Making Patient will be medically cleared. I will admit him to detox. Thiamine and folate were given ED Disposition - Plan for ED Patient: Disposition: Home or Assisted Living Diagnosis: Alcohol abuse, Admitted to alcohol detoxification center, Alcohol dependence Referrals: Care Physician,No Primary [Primary Care Provider] -
[2019-09-19 07:11] LABS: Absolute Lymphocyte Count 1.48 X10^3/uL (0.83-4.51); Absolute Neutrophil Count 2.5 X10^3/uL (2.0-7.7); Basophil# 0.02 X10^3/uL; Basophil% 0.5 % (0-1); Eosinophil# 0.09 X10^3/uL; Hematocrit 40.5 % (40-54); Hemoglobin 13.6 g/dL (13.0-16.5); Lymphocyte # 1.48 X10^3/ul (4.0); Lymphocyte % 33.6 % (19-41); Mean Corp Hgb Conc 33.6 g/dL (32-36); Mean Corpuscular Hgb 29.2 pg (27.0-32.0); Mean Corpuscular Volume 87.1 fL (80-94); Mean Platelet Vol. 10.3 fl (6.2-12.0); Monocyte# 0.31 X10^3/uL; NRBC Flagged by Analyzer 0 % (0-5); Neutrophil % 56.7 % (47-70); Platelet Count 218 K/mm3 (150-450); RBC Distribution Width CV 13.2 % (11.6-14.6); RBC Distribution Width SD 42.3 fl (35.1-43.9); Red Blood Count 4.65 M/mm3 (4.6-6.2); White Blood Count 4.4 K/mm3 (4.4-11.0)
[2019-09-19 07:16] LABS: Bacteria 0 SEEN /hpf (None Seen); Mucous, Urine 0 SEEN /hpf (<or=2+); Red Blood Cells-Urine 0 SEEN /hpf (0-5); Squamous Epithelial Cells - UA 0 SEEN /hpf (0-5); White Blood Cells 0 SEEN /hpf (0-5)
[2019-09-19 07:17] LABS: Color, Urine Yellow (Yellow); Glucose, Dipstick Normal (Normal); Ketone-Dipstick Negative (Negative); Leukocyte Esterase-Dipstick Negative /ul (Negative); Nitrite-Dipstick Negative (Negative); Occult Blood-Urine Negative /ul (Negative); Protein-Dipstick Negative (Negative); Specific Gravity, Urine 1.015 (1.002-1.030); Urine Bilirubin Dipstick Negative (Negative); Urine Clarity Clear (Clear); Urine Urobilinogen Normal (Normal)
[2019-09-19 07:29] LABS: ALB/GLOB Ratio 1.1 RATIO (0.9-2.4); AST(SGOT) 18 U/L (15-37); Alanine Aminotransfer ALT/SGPT 23 U/L (16-61); Alkaline Phosphatase 56 U/L (45-117); Anion Gap 6 (5-15); BUN 12 mg/dL (7-18); BUN/Creat Ratio 13.5 RATIO (10-20); Calcium,Total 8.3 mg/dL (8.5-10.1); Chloride 110 mmol/L (98-107); Creatinine, Serum 0.89 mg/dL (0.70-1.30); EST Glomerular Filtration Rate 102 mL/min (>60); Est Glom Filt Rate - Afr Amer 124 mL/min (>60); Estimated Creatinine Clearance 89.85 ml/min; Globulin 3.6 g/dL (2.2-4.2); Glucose 83 mg/dL (74-106); Potassium 3.9 mmol/L (3.5-5.1); Protein, Total 7.6 g/dL (6.4-8.2); Sodium Level 141 mmol/L (136-145)
--- NOTE | 2019-09-19 08:25 | PCM.HP.STD ---
Problem List (1) Alcohol abuse Status: Chronic History of Present Illness Date of Admission: 09/19/19 Chief Complaint: Alcohol abuse, requesting alcohol detox The patient is a 38 year old M who was seen in the emergency room at [facility] requesting services for alcohol detox. Patient states he drinks approximately 30 beers or more a day and has done so for many years. His last drink was last night, patient denies any medical problems, he states he has been through alcohol detox before at [facility] in [place] but it is been years since he has been through detox. Patient denies ever going through DTs. Ethyl alcohol level was 120 in the ER, the remaining labs that were drawn on the patient were unremarkable. Patient will be admitted for alcohol detox services to [facility], I do not believe he needs telemetry, patient shows no signs of alcohol withdrawal at this time Past Medical History Past Medical History (Chronic Problems): Chronic Problems Alcohol abuse (Chronic) Alcohol dependence (Chronic) Allergies naproxen Allergy (Verified 09/19/19 05:53) Hives tramadol Allergy (Verified 09/19/19 05:53) Itching acetaminophen [From Vicodin] Adverse Reaction (Verified 09/19/19 05:53) Nausea hydrocodone [From Vicodin] Adverse Reaction (Verified 09/19/19 05:53) Nausea hydromorphone HCl [From Dilaudid] Adverse Reaction (Verified 09/19/19 05:53) Nausea Home Medications: Ambulatory Orders Medication Instructions Recorded NK 04/02/19 Surgical History: - - Mediport placement due to past history of Hodgkin's lymphoma Psychiatric History: No pertinent psych hx Lives: Friends Tobacco Use: Non-smoker Alcohol: Heavy Drugs: None - *Family History Maternal History Items: - - patient adopted, so doesnt know about family history Paternal History Items: No pertinent history Review of Systems Constitutional: Denies: Anorexia, Chills, Fever, Night Sweats, Malaise, Weakness, Weight Change, Fatigue Eyes: Denies: Cataracts, Conjunctivae Inflammation, Double vision, Drainage HEENT: Denies: Difficulty Swallowing, Dysphasia, Ear Pain, Eye Pain, Hearing Changes, Nasal bleeding, Nasal Congestion, Post Nasal Drip Cardiovascular: Denies: Chest Pain, Claudication, Chest Pressure, Chest Tightness, Edema, Heaviness, Orthopnea, Palpitations Respiratory: Denies: Cough, Hemoptysis, Pleuritic Pain, Shortness of Breath, Shortness of breath at rest, Shortness of breath upon exertion, Sputum production Gastrointestinal: Denies: Abdominal Pain, Constipation, Diarrhea, Hematemesis, Hematochezia, Nausea, Melena, Vomiting Genitourinary: Denies: Dysuria, Frequency, Hematuria, Hesitancy, Urgency Musculoskeletal: Denies: Joint Pain, Joint stiffness, Joint swelling, Joint Tenderness, Leg Pain Skin: Denies: Dryness, Jaundice, Pruritis, Rash Neurological: Denies: Blurred vision, Double vision, Change in Speech, Slurred speech, Difficulty swallowing, Focal weakness, Headaches, Incoordination, Numbness, Tingling, Tremor Psychiatric: Denies: Anxiety, Depression, Homicidal Ideations, Suicidal Ideations Endocrine: Denies: Change in Body Habitus, Heat/ Cold Intolerance, Polydipsia, Polyuria Hematologic/ Lymphatic: Denies: Adenopathy, Anemia, Easy Bruising, Easy Bleeding, Petechiae, Purpura VTE Information - Inpt Only VTE Present on Admission: No VTE Mechan Device Prophylaxis: None VTE Pharm Prophylaxis ordered?: No Patient Problems: Active and Suspected Problems Admitted to alcohol detoxification center (Acute) - Physical Exam Vitals/I&O's: Vital Signs Temp Pulse Resp BP Pulse Ox 97.1 F L 79 18 109/71 97 09/19/19 05:49 09/19/19 05:49 09/19/19 05:49 09/19/19 05:49 09/19/19 05:49 Oxygen Delivery Method Room Air Weight: 55.9 kg Body Mass Index (BMI) 19.8 Intake and Output for Last 24 Hours 09/17/19 09/18/19 09/19/19 23:59 23:59 23:59 Intake Total 50.2 / 50.2 Balance 50.2 / 50.2 General: Oriented x3, Cooperative, - - Patient is sleepy during my examination but is able to awaken and give pertinent information, he is appropriate HEENT: Atraumatic, PERRLA, EOMI, Normocephalic Oral: Moist Mucosa Neck: Supple, No JVD, Negative Carotid Bruits, Trachea Midline, Thyroid Normal Size and Texture Lungs: Clear to auscultation, Normal air movement, No rhonchi, No wheeze, No rales Cardiovascular: Regular rate, Regular Rhythm, Normal S1, Normal S2, No murmurs, PMI Normal Abdomen: Bowel Sounds Present, Soft, Non Tender, Non-Distended Extremities: No clubbing, No cyanosis, No edema, Capillary Refill Less than 3 Seconds Skin: No rashes, No breakdown Musculoskeletal: No Tenderness to Palpation of Joints or Extremities, No Muscle Wasting Neurological: Cranial nerves II-XII grossly intact, Neuro grossly intact, Sensory exam intact to light touch and pain, Coordination normal Psych/Mental Status: Normal Affect, Appropriate, Alert and oriented to time, place, person, mood and affect Laboratory Results 09/19/19 07:00: WBC 4.4, RBC 4.65, Hgb 13.6, Hct 40.5, MCV 87.1, MCH 29.2, MCHC 33.6, RDW Std Deviation 42.3, RDW Coeff of Hugo 13.2, Plt Count 218, MPV 10.3, Immature Gran % (Auto) 0.200, Neut % (Auto) 56.7, Lymph % (Auto) 33.6, [place] % (Auto) 7.0, Eos % (Auto) 2.0, Baso % (Auto) 0.5, Absolute Neuts (auto) 2.5, Absolute Lymphs (auto) 1.48, Nucleated RBC % 0 09/19/19 07:00: Sodium 141, Potassium 3.9, Chloride 110 H, Carbon Dioxide 25.0, Anion Gap 6, BUN 12, Creatinine 0.89, Estim Creat Clear Calc 89.85, Est GFR (MDRD) Af Amer 124, Est GFR (MDRD) Non-Af 102, BUN/Creatinine Ratio 13.5, Glucose 83, Calcium 8.3 L, Total Bilirubin 0.20, AST 18, ALT 23, Alkaline Phosphatase 56, Total Protein 7.6, Albumin 4.0, Globulin 3.6, Albumin/Globulin Ratio 1.1 09/19/19 07:00: Ethyl Alcohol 120.0 09/19/19 07:10: Urine Color Yellow, Urine Clarity Clear, Urine pH 6.0, Ur Specific [place] 1.015, Urine Protein Negative, Urine Glucose (UA) Normal, Urine Ketones Negative, Urine Occult Blood Negative, Urine Nitrite Negative, Urine Bilirubin Negative, Urine Urobilinogen Normal, Ur Leukocyte Esterase Negative, Urine RBC 0 SEEN, Urine WBC 0 SEEN, Ur Squamous Epith Cells 0 SEEN, Urine Bacteria 0 SEEN, Urine Mucus 0 SEEN Assessment/Plan All Active Problems Admitted to alcohol detoxification center (Acute) Alcoholism /alcohol abuse (Resolved) #1 chronic alcohol abuse-patient desiring detox services for alcohol-patient will be admitted to [facility], he will be placed on phenobarb taper, he will be given Ativan p.o. and IV as needed for agitation. Patient states he is followed up with 180 in the past, he will need to do so again. #2 past history of Hodgkin's lymphoma-not actively being treated any longer Inpatient E&M: 74857 Init Hosp L3
[2019-09-19 08:42] VITALS: BP 95/58; PULSE 75; RESP 16; RESP 17; TEMP 36.8; O2SAT 98
[2019-09-19 10:02] VITALS: BMI 18.7
[2019-09-19 10:13] VITALS: BP 96/59; PULSE 73; RESP 16; TEMP 36.9; O2SAT 93
[2019-09-19 10:16] VITALS: BMI 18.7
--- NOTE | 2019-09-19 11:09 | PCM.NTREPORT ---
Nutrition Therapy Report - History Nutrition Services has been consulted to:: Manage nutrient details of diet order Current diet / nutrition support order:: Regular with snacks 3x/day - Anthropometric Measurements Height:: 5 ft 6 in Weight:: 52.617 kg Body Mass Index (BMI):: 18.7 - Relevant Labs Relevant Labs:: Chloride 110 mmol/L (98-107) H 09/19/19 07:00 Calcium 8.3 mg/dL (8.5-10.1) L 09/19/19 07:00 - Assessment Food / Nutrition-Related History:: Pt sleeping, but woke him up to ask questions. States Regular diet at home w/ fair/poor po intake - states no appetite. Has had 27.5% in past month?? States UBW: 72.575 kg - and lost weight d/t cancer dx, drinking a lot (30 pack beer/day) and no appetite. Agreeable to ONS medpass. On thiamine and folic acid. [ End ] - Nutrition Diagnosis Problem / Etiology / Signs & Symptoms (PES):: Pt with inadequate oral nutrition intake r/t cancer dx, drinking a lot of alcohol and poor po intake aeb sig wt loss and poor po intake Evidence of Malnutrition Exists:: Yes Severe PCM:: Social & Environmental circumstances - Nutrition Intervention Nutrition Prescription:: [id number] calories / 60-70 gm pro/day - Food / Nutrient Delivery Interventions Summary of nutrition intervention:: Rec continue Regular diet w/ snacks and ONS at medpass Nutrition education provided?: No - MNT Monitoring Further MNT monitoring and evaluation required?: Yes MNT Follow-up in:: 3-5 days - if questions, please call RD/LD at x [phone]
[2019-09-19 11:12] VITALS: BMI 18.7
[2019-09-19] MEDS: Phenobarbital 32.4 MG Tablet 97.2 MG PO (12:42)
--- NOTE | 2019-09-19 15:54 | DS.PCM_ITS ---
Discharge Date and Diagnosis Date of Admission: 09/19/19 Date of Discharge: 09/19/19 - Primary Discharge Diagnosis Acute Problems: #1 chronic alcoholism - Secondary Discharge Diagnosis Chronic Problems: Chronic Problems Alcohol abuse (Chronic) Alcohol dependence (Chronic) Hospital Course and Treatment Operations: None Procedures: None Summary of Care Provided: The patient is a 38 year old M seen in the emergency room at [facility] desiring of detox services, labs were drawn on the patient and were unremarkable, patient was admitted to [place] [address], medications were ordered using the template for alcohol detox. On the afternoon of 09/19/2019, patient question nursing as to whether he had any health insurance, nursing staff told him that it was Medicaid that was listed under his insurance and he then stated he did not have Medicaid any longer and that he was checking out of the hospital. Patient checked out AMA in the afternoon of 09/19/2019. - Physical Exam Vitals/I&O's: Vital Signs Temp Pulse Resp BP Pulse Ox 98.4 F 73 16 96/59 L 93 09/19/19 10:13 09/19/19 10:13 09/19/19 10:13 09/19/19 10:13 09/19/19 10:13 Oxygen Delivery Method Room Air Weight: 52.617 kg Body Mass Index (BMI) 18.7 Intake and Output for Last 24 Hours 09/17/19 09/18/19 09/19/19 23:59 23:59 23:59 Intake Total 101.2 / 101.2 Balance 101.2 / 101.2 Laboratory Results 09/19/19 07:00: WBC 4.4, RBC 4.65, Hgb 13.6, Hct 40.5, MCV 87.1, MCH 29.2, MCHC 33.6, RDW Std Deviation 42.3, RDW Coeff of Hugo 13.2, Plt Count 218, MPV 10.3, Immature Gran % (Auto) 0.200, Neut % (Auto) 56.7, Lymph % (Auto) 33.6, [place] % (Auto) 7.0, Eos % (Auto) 2.0, Baso % (Auto) 0.5, Absolute Neuts (auto) 2.5, Absolute Lymphs (auto) 1.48, Nucleated RBC % 0 09/19/19 07:00: Sodium 141, Potassium 3.9, Chloride 110 H, Carbon Dioxide 25.0, Anion Gap 6, BUN 12, Creatinine 0.89, Estim Creat Clear Calc 89.85, Est GFR (MDRD) Af Amer 124, Est GFR (MDRD) Non-Af 102, BUN/Creatinine Ratio 13.5, Glucose 83, Calcium 8.3 L, Total Bilirubin 0.20, AST 18, ALT 23, Alkaline Phosphatase 56, Total Protein 7.6, Albumin 4.0, Globulin 3.6, Albumin/Globulin Ratio 1.1 09/19/19 07:00: Ethyl Alcohol 120.0 09/19/19 07:10: Urine Color Yellow, Urine Clarity Clear, Urine pH 6.0, Ur Specific [place] 1.015, Urine Protein Negative, Urine Glucose (UA) Normal, Urine Ketones Negative, Urine Occult Blood Negative, Urine Nitrite Negative, Urine Bilirubin Negative, Urine Urobilinogen Normal, Ur Leukocyte Esterase Negative, Urine RBC 0 SEEN, Urine WBC 0 SEEN, Ur Squamous Epith Cells 0 SEEN, Urine Bacteria 0 SEEN, Urine Mucus 0 SEEN Home Medications: Medications to take at Discharge NK 04/02/19 Primary Care Physician: Care Physician,No Primary [Primary Care Provider] - Disposition: Against Medical Advice Minutes spent on discharge:: 25 Patient Condition:: Stable Medical Necessity - Tobacco Use Smoking Status: Unknown if ever smoked Tobacco Use: Non-smoker Meaningful Use Info Meaningful Use Diagnoses (Choose all that apply): None applicable Inpatient E&M: 98047 Disch Hosp
== END 2019-09-19 14:44 | disposition left against medical advice (07) | DRG 894 ==
LOC: ED 06:29 → MS3 08:37
PROVIDERS: Admitting Provider Internal Medicine; Emergency Provider Emergency Medicine; Visit Provider Internal Medicine
DX: F10.229 Alcohol dependence with intoxication, unspecified (principal); Y90.9 Presence of alcohol in blood, level not specified; F17.200 Nicotine dependence, unspecified, uncomplicated; Z85.72 Personal history of non-Hodgkin lymphomas
CPT/HCPCS: 80053; 80320; 81001; 85025; 97802; 99285; J7030; A4216; G0480; J3490

== ENCOUNTER 2019-10-30 20:48 | Emergency (ER) | payer SELFPAY ==
[2019-10-30 20:49] VITALS: BP 109/66; PULSE 81; RESP 14; TEMP 36.3; O2SAT 100; BMI 25.8
[2019-10-30] MEDS: Ondansetron 4 MG/2 ML Vial IV (22:17)
[2019-10-30] MEDS: Ketorolac 15 MG/ML Vial IV (22:18)
[2019-10-30] MEDS: Morphine 4 MG/ML Syringe IV (22:19)
--- NOTE | 2019-10-30 23:04 | ED.VIS.BACK ---
History of Present Illness Chief Complaint: Back Informant: Patient Onset: Today, Hours Context: Sudden Onset Injury: Bending, Repetitive Motion Timing: Continuous Quality: Dull, Aching, Throbbing Location: Lumbar Current Severity: 10/10 Maximum Severity: 10/10 Worsened by: improves with: Movement, Bending Relieved by: Nothing Associated Symptoms: - - Patient has no associated symptoms. Patient denies saddle anesthesia or paresthesia. Patient denies sciatica or radicular pain. Narrative: Patient presents with bilateral low back pain. This occurred when he was chopping wood. He denies radicular pain. He denies paresthesia anesthesia. He has no complaints. There is no history of direct trauma. There is no history of back problems. Prior similar symptoms: No Recent Illness/Hospitalization: No - Past Medical History (1) Alcohol abuse Status: Chronic Past Medical History - Allergies and Home Meds Allergies/Adverse Reactions: Allergies naproxen Allergy (Verified 10/30/19 20:51) Hives tramadol Allergy (Verified 10/30/19 20:51) Itching acetaminophen [From Vicodin] Adverse Reaction (Verified 10/30/19 20:51) Nausea hydrocodone [From Vicodin] Adverse Reaction (Verified 10/30/19 20:51) Nausea hydromorphone HCl [From Dilaudid] Adverse Reaction (Verified 10/30/19 20:51) Nausea Primary Care Physician: Care Physician,No Primary [Primary Care Provider] - Prior records reviewed: Yes Surgical History: - - Mediport placement due to past history of Hodgkin's lymphoma Lives: Alone Smoking Status: Never smoker Alcohol: Sober Drugs: None - Family History Paternal Family History: Reports: No pertinent history Maternal Family History: Reports: - - patient adopted, so doesnt know about family history Review of Systems General: Denies: Chills, Fever, Malaise Genitourinary: Denies: Dysuria, Hematuria, Frequency Musculoskeletal: Reports: Back pain. Denies: Myalgias, Arthralgias, Neck pain, Swelling, Extremity Pain, -, - Skin: Denies: Rash, Wounds Neurological: Denies: Weakness, Parasthesia, Numbness Hematologic: Denies: Easy bruising, Easy bleeding Physical Exam Vital Signs/Narrative: Vital Signs Temp Pulse Resp BP Pulse Ox 10/30/19 20:49 97.3 F L 81 14 109/66 100 Inital Vital Signs reviewed: Yes General: Well nourished, Well developed Head: Normocephalic, Atraumatic Eyes: Perrl, EOMI Neck: Supple, Nontender, No lymphadenopathy, No JVD Cardiovascular: Regular rate, Regular rhythm, No murmurs, Normal S1, Normal S2 Respiratory: No distress, CTA bilaterally, Chest nontender Abdomen: Soft, Nontender, Nondistended, Normal bowel sounds Back: Normal Inspection, Paraspinal Tenderness, Negative SLR - Right, Negative SLR - Left. Negative for: Nontender, Surgical Scar, Well-Healed, CVA tenderness Extremeties: Nontender, No edema, Strong Pulses, Symmetric Skin: Normal color, No rash Neuro: Alert, Oriented, Normal Strength, Normal Sensation, Normal DTR, Normal Gait, Normal Reflexes Reflexes: Negative for: Right Clonus, Right Babinski, Left Clonus, Left Babinski Psychological: Normal affect Diagnostic/Tx/Re-eval - Medical Decision Making Patient was medicated with IV medicines. Was given p.o. medicines prior to discharge. He was discharged with p.o. medicine. Patient has history consistent with muscular back spasm/strain. ED Disposition - Plan for ED Patient: Disposition: Home or Assisted Living Diagnosis: Bilateral low back pain without sciatica, Lumbar paraspinal muscle spasm Instructions: ED LUMBAR SPRAIN/STRAIN Prescriptions: Hydrocodone Bitart/Apap 5-325 [[place] 5MG-325MG] 1 tab PO Q6H PRN PRN 3 Days #10 tab PRN Reason: Pain Prescription Printed Referrals: Care Physician,No Primary [Primary Care Provider] - As Needed
[2019-10-30] MEDS: HYDROcodone Bitartrate/Apap 5/325 Tablet PO (23:18)
[2019-10-30] MEDS: diazePAM 5 MG Tablet PO (23:18)
== END 2019-10-30 23:21 | disposition home or self-care (01) ==
PROVIDERS: Emergency Provider Emergency Medicine
DX: M54.5 Low back pain (principal); M62.830 Muscle spasm of back; Z85.71 Personal history of Hodgkin lymphoma
CPT/HCPCS: 96374; 96375; 99285; A4216; J2405

== ENCOUNTER 2020-04-12 23:41 | Inpatient (IN) | payer MEDICAID, SELFPAY ==
[2020-04-12 23:41] VITALS: BP 117/63; PULSE 110; RESP 16; TEMP 36.1; O2SAT 98; BMI 28.2
[2020-04-13] VITALS (8 sets, daily range): BP systolic 91–117; BP diastolic 47–71; PULSE 68–110; RESP 16–18; TEMP 36.1–37.1; O2SAT 94–100; BMI 20.2; BMI 20.3
--- NOTE | 2020-04-13 00:13 | ED.VIS.GEN ---
History of Present Illness Chief Complaint: ETOH Intox Informant: Patient Onset: Days Context: Gradual Onset Timing: Continuous Current Severity: Moderate Maximum Severity: Severe Narrative: Patient is a 39-year-old male who presents to the emergency department requesting alcohol detox. Patient states that he drinks daily. He states that he drinks tall boy beers. He states that depends on the day him when he drinks. He has gone through detox about 6 months ago. He states he was only able to stay sober for about a week. He states he continues to drink. Patient states he also is on prescription Percocet, but does abuse it. He states that he is to the point where his drinking is affecting his life and he wants to get sober. He denies being suicidal or homicidal. Patient states he has a history of cancer and went through chemo. He states he has been in remission, but does not give me any other history about this cancer. Prior similar symptoms: Yes Recent Illness/Hospitalization: No Past Medical History - Allergies and Home Meds Allergies/Adverse Reactions: Allergies naproxen Allergy (Verified 04/13/20 00:31) Hives tramadol Allergy (Verified 04/13/20 00:31) Itching acetaminophen [From Vicodin] Adverse Reaction (Verified 04/13/20 00:31) Nausea hydrocodone [From Vicodin] Adverse Reaction (Verified 04/13/20 00:31) Nausea hydromorphone HCl [From Dilaudid] Adverse Reaction (Verified 04/13/20 00:31) Nausea Prior records reviewed: Yes Past Medical History: - - Prior CA, alcohol abuse Surgical History: noncontributory, - - Mediport placement due to past history of Hodgkin's lymphoma Smoking Status: Never smoker - Family History Paternal Family History: Reports: No pertinent history Maternal Family History: Reports: - - patient adopted, so doesnt know about family history Review of Systems General: Denies: Chills, Fever, Sweats Eyes: Denies: Visual changes - bilaterally, Diplopia ENT: Denies: Rhinorrhea, Sore throat Cardiovascular: Denies: Chest pain, Palpitations Respiratory: Denies: Dyspnea, Cough, Dyspnea on exertion Gastrointestinal: Denies: Abdominal pain, Nausea, Vomiting, Diarrhea, Melena, Hematochezia Genitourinary: Denies: Dysuria, Hematuria, Frequency Musculoskeletal: Denies: Back pain, Extremity Pain Skin: Denies: Rash, Wounds Neurological: Denies: Headache, Weakness, Numbness Physical Exam Vital Signs/Narrative: Vital Signs Temp Pulse Resp BP Pulse Ox 04/12/20 23:41 97 F L 110 H 16 117/63 98 Inital Vital Signs reviewed: Yes General: Well nourished, Well developed, No Acute Distress Head: Normocephalic, Atraumatic Eyes: Perrl, EOMI ENT: Moist mucous membranes, No rhinorrhea Neck: Supple, Nontender Cardiovascular: Regular rate, Regular rhythm, No murmurs Respiratory: No distress, CTA bilaterally, Chest nontender Abdomen: Soft, Nontender, Nondistended, Normal bowel sounds Back: Nontender, Normal Inspection Extremities: Nontender, No edema Skin: Normal color, No rash Neurological: Alert, Oriented x3, Cranial nerves II-XII grossly intact, Normal Strength, Normal Sensation Psychological: Normal affect, Normal Mood Diagnostic/Tx/Re-eval Abnormal Lab Results 04/13/20 04/13/20 04/13/20 00:05 00:25 00:25 WBC 4.7 RBC 4.78 Hgb 13.8 Hct 41.3 MCV 86.4 MCH 28.9 MCHC 33.4 RDW Std Deviation 43.7 RDW Coeff of Hugo 13.8 Plt Count 255 MPV 9.8 Immature Gran % (Auto) 0.400 Neut % (Auto) 55.6 Lymph % (Auto) 37.2 [place] % (Auto) 5.1 Eos % (Auto) 1.3 Baso % (Auto) 0.4 Absolute Neuts (auto) 2.6 Absolute Lymphs (auto) 1.74 Nucleated RBC % 0 Sodium 142 Potassium 3.5 Chloride 109 H Carbon Dioxide 26.0 Anion Gap 7 BUN 17 Creatinine 0.96 Estim Creat Clear Calc 94.15 Est GFR (MDRD) Af Amer 112 Est GFR (MDRD) Non-Af 93 BUN/Creatinine Ratio 17.6 Glucose 89 Calcium 8.6 Total Bilirubin 0.30 AST 16 ALT 23 Alkaline Phosphatase 57 Total Protein 7.6 Albumin 4.0 Globulin 3.6 Albumin/Globulin Ratio 1.1 Urine Opiates Screen NEGATIVE Urine Methadone Screen NEGATIVE Ur Barbiturates Screen NEGATIVE Ur Phencyclidine Scrn NEGATIVE Ur Amphetamines Screen NEGATIVE U Methamphetamin-MDMA NEGATIVE U Benzodiazepines Scrn NEGATIVE Urine Cocaine Screen NEGATIVE U Cannabinoids Screen NEGATIVE Ur Drug Screen Comment Ethyl Alcohol Hepatitis A IgM Ab Hepatitis A Ab Total Hepatitis A Interp Hep Bs Antigen Hep Bs Ag Confirmation Hep B Surface Ag Comm Hep Bs Antibody Interp Hep B Core Total Ab Hep B Core IgM Ab Hepatitis C Ab Confirm Hep C Confirm Com 1 04/13/20 04/13/20 00:25 00:25 WBC RBC Hgb Hct MCV MCH MCHC RDW Std Deviation RDW Coeff of Hugo Plt Count MPV Immature Gran % (Auto) Neut % (Auto) Lymph % (Auto) [place] % (Auto) Eos % (Auto) Baso % (Auto) Absolute Neuts (auto) Absolute Lymphs (auto) Nucleated RBC % Sodium Potassium Chloride Carbon Dioxide Anion Gap BUN Creatinine Estim Creat Clear Calc Est GFR (MDRD) Af Amer Est GFR (MDRD) Non-Af BUN/Creatinine Ratio Glucose Calcium Total Bilirubin AST ALT Alkaline Phosphatase Total Protein Albumin Globulin Albumin/Globulin Ratio Urine Opiates Screen Urine Methadone Screen Ur Barbiturates Screen Ur Phencyclidine Scrn Ur Amphetamines Screen U Methamphetamin-MDMA U Benzodiazepines Scrn Urine Cocaine Screen U Cannabinoids Screen Ur Drug Screen Comment Ethyl Alcohol 159.0 Hepatitis A IgM Ab Cancelled Hepatitis A Ab Total Cancelled Hepatitis A Interp Cancelled Hep Bs Antigen Cancelled Hep Bs Ag Confirmation Cancelled Hep B Surface Ag Comm Cancelled Hep Bs Antibody Interp Cancelled Hep B Core Total Ab Cancelled Hep B Core IgM Ab Cancelled Hepatitis C Ab Confirm Cancelled Hep C Confirm Com 1 Cancelled - Medical Decision Making Patient requests inpatient detox for alcohol dependence. Metabolic work-up was pursued and was unremarkable. The patient was discussed with the hospitalist and will be admitted to the detox unit at this time. Impression 1. Alcohol abuse and dependence ED Disposition - Plan for ED Patient: Disposition: Acute Care [facility]
[2020-04-13] MEDS: Ondansetron 4 MG/2 ML Vial IV (00:24)
[2020-04-13] MEDS: Lactated Ringers 1,000 ML 999 ML IV (00:30)
[2020-04-13 00:34] LABS: Amphetamine Urine VISTA NEGATIVE (<1000 ng/mL); Barbiturate Urine VISTA NEGATIVE (< 200 ng/mL); Benzodiazepine Urine VISTA NEGATIVE (< 200 ng/mL); Cocaine Urine VISTA NEGATIVE (< 300 ng/mL); Ecstacy Urine VISTA NEGATIVE (< 500 ng/mL); Methadone Urine VISTA NEGATIVE (< 300 ng/mL); PCP Urine VISTA NEGATIVE (< 25 ng/mL); THC Urine VISTA NEGATIVE (< 50 ng/mL); Vista UDS pH Range 7
[2020-04-13 00:38] LABS: Absolute Lymphocyte Count 1.74 X10^3/uL (0.83-4.51); Absolute Neutrophil Count 2.6 X10^3/uL (2.0-7.7); Basophil# 0.02 X10^3/uL; Basophil% 0.4 % (0-1); Eosinophil# 0.06 X10^3/uL; Eosinophils% 1.3 % (0-5); Hematocrit 41.3 % (40-54); Hemoglobin 13.8 g/dL (13.0-16.5); Lymphocyte # 1.74 X10^3/ul (4.0); Lymphocyte % 37.2 % (19-41); Mean Corp Hgb Conc 33.4 g/dL (32-36); Mean Corpuscular Hgb 28.9 pg (27.0-32.0); Mean Corpuscular Volume 86.4 fL (80-94); Mean Platelet Vol. 9.8 fl (6.2-12.0); Monocyte# 0.24 X10^3/uL; Monocyte% 5.1 % (0-10); NRBC Flagged by Analyzer 0 % (0-5); Neutrophil % 55.6 % (47-70); Platelet Count 255 K/mm3 (150-450); RBC Distribution Width CV 13.8 % (11.6-14.6); RBC Distribution Width SD 43.7 fl (35.1-43.9); Red Blood Count 4.78 M/mm3 (4.6-6.2); White Blood Count 4.7 K/mm3 (4.4-11.0)
--- NOTE | 2020-04-13 00:42 | ED.RN ---
PT REPORTED TO ER NURSE THAT HE WAS INTERMITTENTLY SUICIDAL. MD MADE AWARE, DENIES SI TO MD. NO NEW ORDERS.
--- NOTE | 2020-04-13 00:46 | HP.PCM_ITS ---
Problem List (1) Opiate abuse, continuous Status: Chronic (2) History of Hodgkin's lymphoma Status: Chronic (3) Alcohol abuse Status: Chronic History of Present Illness Date of Admission: 04/13/20 Chief Complaint: Opiate and EtOH withdrawal The patient is a 39 y/o M w/ PMHx: EtOH Abuse (> 6 tall boys daily, most recently 04/12/20 10:30 pm), Opiate abuse (Usually percocets, 4-5 tab daily, most recently 2 days prior as ran out), Hx Hodgkin's Lymphoma s/p chemo/radiation therapy in remission who presents to the [facility] ED on 04/13/20 with history of recent self attempts to again decrease his EtOH intake with prior admissions for withdrawal with nausea, tactile disturbances, mild tremor in addition to history of last opiate intake percocets ~ 2 days prior also attempting to discontinue with generalized body aches, nausea, fatigue, restlessness and abdominal discomfort prompting eventual ED presentation for treatment. In the ED included T 97, heart rate 110, BP 117/63, respiratory rate 16, 98% on room air, unremarkable CBC, CMP pending upon evaluation, urine drug screen negative, ethyl alcohol level pending upon evaluation. In the ED patient ministered Zofran 4 mg IV x1 and LR. Past Medical History Past Medical History (Chronic Problems): Chronic Problems Opiate abuse, continuous (Chronic) History of Hodgkin's lymphoma (Chronic) Alcohol abuse (Chronic) Alcohol dependence (Chronic) Allergies naproxen Allergy (Verified 04/13/20 00:31) Hives tramadol Allergy (Verified 04/13/20 00:31) Itching acetaminophen [From Vicodin] Adverse Reaction (Verified 04/13/20 00:31) Nausea hydrocodone [From Vicodin] Adverse Reaction (Verified 04/13/20 00:31) Nausea hydromorphone HCl [From Dilaudid] Adverse Reaction (Verified 04/13/20 00:31) Nausea Home Medications: Ambulatory Orders Medication Instructions Recorded NK 04/13/20 Surgical History: - - Mediport placement due to past history of Hodgkin's lymphoma. Psychiatric History: No pertinent psych hx Lives: Alone Smoking Status: Never smoker Tobacco Use: Non-smoker Alcohol: Heavy - Patient notes drinking at least currently 6-8 tall boys daily. Drugs: - - Patient notes usually taking at least 4-5 Percocets daily, unclear specific milligram amount. - *Family History Maternal History Items: - - Patient does not know his maternal or paternal family history secondary to being adopted. Paternal History Items: - - Patient does not know his maternal or paternal family history secondary to being adopted. Review of Systems Constitutional: Reports: Anorexia, Malaise, Weakness, Fatigue. Denies: Chills, Fever, Weight Change HEENT: Reports: Nasal Congestion, Sinus Congestion. Denies: Head Aches, Sinus Drainage Cardiovascular: Denies: Chest Pain, Palpitations Respiratory: Denies: Cough, Shortness of breath at rest, Sputum production Gastrointestinal: Reports: Abdominal Pain, Nausea. Denies: Vomiting Genitourinary: Denies: Dysuria Musculoskeletal: Reports: Back Pain, Joint Pain, Muscle pain. Denies: Joint Tenderness Skin: Denies: Rash, Wounds Neurological: Reports: Tremor. Denies: Focal weakness, Numbness, Tingling Psychiatric: Denies: Anxiety, Depression, Homicidal Ideations, Suicidal Ideations Hematologic/ Lymphatic: Denies: Easy Bruising, Easy Bleeding VTE Information - Inpt Only VTE Present on Admission: No VTE Mechan Device Prophylaxis: None VTE Pharm Prophylaxis ordered?: No Reason prophylaxis not ordered:: Treatment Not Indicated Subjective: Patient laying in the ED bed, fatigued appearing, intermittently agitated, face flushed, rhinorrhea evident. Objective: Physical Examination: General: awake, alert, oriented x 3 to self, place, recent events, remains cooperative, laying in the ED bed, fatigued, mildly agitated, flushed appearance. Skin: normal color, turgor, no icterus, cyanosis. HEENT: AT/NC, EOMI, PERRLA, dry MM, rhinorrhea evident, no carotid bruits or JVD noted. Lungs: Diminished breath sounds, greater bases, moderate effort, no rales, ronchi or wheezing. Heart: Tachycardic with regular rhythm; no gallop, rub audible. Abdomen: soft, generalized discomfort with palpation with no rebound or guarding, ND, hyperactive BS, no HSM. Extremities: no cyanosis, clubbing, or edema. Neurological: patient awake, alert, oriented as noted; cognitive function suspect mildly decreased from baseline intact; pupils equally reactive to light and accomodation; cranial nerves II-XII grossly normal, moving all 4 extremities, no focal deficits, strength mildly to moderately global decrease secondary to acute presentation with her doll, very mild tremors noted, agitated. Psychiatric: affect appears agitated although fatigued flat affect at the same time, no acute evidence of depressive or anxiety feelings. - Physical Exam Vitals/I&O's: Vital Signs Temp Pulse Resp BP Pulse Ox 97 F L 110 H 16 117/63 98 04/12/20 23:41 04/12/20 23:41 04/12/20 23:41 04/12/20 23:41 04/12/20 23:41 Weight: 175 lb Body Mass Index (BMI) 28.2 Laboratory Results 04/13/20 00:05: Urine Opiates Screen NEGATIVE, Urine Methadone Screen NEGATIVE, Ur Barbiturates Screen NEGATIVE, Ur Phencyclidine Scrn NEGATIVE, Ur Amphetamines Screen NEGATIVE, U Methamphetamin-MDMA NEGATIVE, U Benzodiazepines Scrn NEGATIVE, Urine Cocaine Screen NEGATIVE, U Cannabinoids Screen NEGATIVE, Ur Drug Screen Comment 04/13/20 00:25: WBC 4.7, RBC 4.78, Hgb 13.8, Hct 41.3, MCV 86.4, MCH 28.9, MCHC 33.4, RDW Std Deviation 43.7, RDW Coeff of Hugo 13.8, Plt Count 255, MPV 9.8, Immature Gran % (Auto) 0.400, Neut % (Auto) 55.6, Lymph % (Auto) 37.2, [place] % (Auto) 5.1, Eos % (Auto) 1.3, Baso % (Auto) 0.4, Absolute Neuts (auto) 2.6, Absolute Lymphs (auto) 1.74, Nucleated RBC % 0 04/13/20 00:25: Sodium Pending, Potassium Pending, Chloride Pending, Carbon Dioxide Pending, Anion Gap Pending, BUN Pending, Creatinine Pending, Est GFR (MDRD) Af Amer Pending, Est GFR (MDRD) Non-Af Pending, BUN/Creatinine Ratio Pending, Glucose Pending, Calcium Pending, Total Bilirubin Pending, AST Pending, ALT Pending, Alkaline Phosphatase Pending, Total Protein Pending, Albumin Pending 04/13/20 00:25: Ethyl Alcohol Pending Current Medications Lactated Ringer's () 1,000 mls @ 999 mls/hr IV .Q1H1M ELIE Stop: 04/13/20 01:05 Last Admin: 04/13/20 00:30 Dose: 999 mls/hr Documented by: Assessment/Plan All Active Problems Admitted to alcohol detoxification center (Acute) Alcoholism /alcohol abuse (Resolved) The patient is a 39 y/o M w/ PMHx: EtOH Abuse, Opiate abuse, Hx Hodgkin's Lymphoma who presents to the [facility] ED on 04/13/20 with history of recent self attempts to again decrease his EtOH intake with prior admissions for withdrawal with nausea, tactile disturbances, mild tremor in addition to history of last opiate intake percocets ~ 2 days prior also attempting to discontinue with generalized body aches, nausea, fatigue, restlessness and abdominal discomfort. 1. Acute EtOH Withdrawal: Will admit to [facility], routine labs obtained in the ED with noted CMP and ethyl alcohol level pending, given interest in sobriety, will initiate and continue on protocol with taper course of Phenobarbital, scheduled gabapentin for seizure prophylaxis, as needed Catapres, Bentyl, Vistaril, IV fluids, IV antiemetics, Tylenol as needed for pain. Will consult Case management for assistance for transition to next level of rehabilitation care. Mag, phos pending. Maintain on CIWA protocol concurrently. 2. Acute Opiate Withdrawal: Will initiate and continue on protocol with tapering course of Subutex, as needed tylenol, ibuprofen, bowel regimen, gabapentin, Bentyl, Vistaril, methocarbamol, clonidine, PRN nightly trazodone for insomnia, IV fluids, IV antiemetics. Once patient clinically improved and completion of taper nearing will plan consultation with case management for transition to next level of rehabilitation care. 3. Polysubstance Abuse: Denies specifically IV drug abuse but given history will obtain HIV and hepatitis panel. Patient currently not candidate for hep C treatment currently as needs to be clean, sober x 6 months, documented attendance NA or AA meetings, counseling and ongoing negative drug screens if his panel were to return positive. 4. History of Hodgkin's lymphoma: Patient status post intervention with chemo and radiation per his report, in remission, encourage continued outpatient follow-up. 5. DVT prophylaxis: Low risk, encourage ambulation. Inpatient E&M: 92570 Init Hosp L3
[2020-04-13 00:57] LABS: ALB/GLOB Ratio 1.1 RATIO (0.9-2.4); AST(SGOT) 16 U/L (15-37); Alanine Aminotransfer ALT/SGPT 23 U/L (16-61); Alkaline Phosphatase 57 U/L (45-117); Anion Gap 7 (5-15); BUN 17 mg/dL (7-18); BUN/Creat Ratio 17.6 RATIO (10-20); Calcium,Total 8.6 mg/dL (8.5-10.1); Chloride 109 mmol/L (98-107); Creatinine, Serum 0.96 mg/dL (0.70-1.30); EST Glomerular Filtration Rate 93 mL/min (>60); Est Glom Filt Rate - Afr Amer 112 mL/min (>60); Estimated Creatinine Clearance 94.15 ml/min; Globulin 3.6 g/dL (2.2-4.2); Glucose 89 mg/dL (74-106); Potassium 3.5 mmol/L (3.5-5.1); Protein, Total 7.6 g/dL (6.4-8.2); Sodium Level 142 mmol/L (136-145)
[2020-04-13 01:37] LABS: Magnesium 2.3 mg/dL (1.6-2.6); Phosphorus 5.5 mg/dL (2.5-4.9)
[2020-04-13] MEDS: Lactated Ringers 1,000 ML 125 ML IV (01:40)
[2020-04-13] MEDS: Phenobarbital 32.4 MG Tablet PO ×6 (01:50→21:56)
--- NOTE | 2020-04-13 03:19 | NURSING ---
Pt. drowsy at this time and unable to consent to RAMP program, contract unsigned in room.
[2020-04-13 04:49] LABS: HIV - WCH Non-Reactive (Nonreactive); Hepatitis B Surface Antibody Non-Reactive; Hepatitis B Surface Antigen Non-Reactive (Nonreactive); Hepatitis C Antibody Non-Reactive (Nonreactive)
--- NOTE | 2020-04-13 07:51 | PCM.HOSP.N ---
Hospitalist Note Seen and examined. Patient admitted in the morning with diagnosis of acute alcohol withdrawal syndrome. Serum alcohol level was elevated. Patient has history of chronic opioid use and dependence. In the morning patient was sedated with phenobarbital and hardly opens eyes on shaking, difficult to maintain arousal. Advised to hold next few dose of phenobarbital until patient is fully awake. Discussed with the nursing staff and escape next to few doses until patient is more awake. Discontinue buprenorphine. Continue supportive medications as needed. Acute hepatitis panel negative. Patient has history of Hodgkin's lymphoma.
--- NOTE | 2020-04-13 08:08 | CPS ---
patient refused incentive.
[2020-04-13] MEDS: Thiamine Hydrochloride 100 MG Tablet PO (08:41)
[2020-04-13] MEDS: Folic Acid 1 MG Tablet PO (08:41)
--- NOTE | 2020-04-13 11:06 | ADDICTION ---
Met with PT to complete ASAM, MSE, DUDIT/AUDIT assessments and to plan for d/c. All assessments completed and faxed to [facility] UM/placed in PT's file. PT to follow up with [facility] following d/c from [facility].
[2020-04-13] MEDS: Glycerin/Hypromellose/PEG400 15 ml Bottle 2 DRP EACH EYE (13:47)
[2020-04-13] MEDS: Potassium Chloride Oral Tablet 20 MEQ 40 MEQ PO (13:47)
[2020-04-14] VITALS (7 sets, daily range): BP systolic 96–113; BP diastolic 51–62; PULSE 68–84; RESP 14–18; TEMP 36.3–36.9; O2SAT 95–99
[2020-04-14] MEDS: Phenobarbital 32.4 MG Tablet PO ×6 (02:03→21:29)
[2020-04-14 06:41] LABS: Anion Gap 5 (5-15); BUN 18 mg/dL (7-18); Calcium,Total 8.6 mg/dL (8.5-10.1); Chloride 104 mmol/L (98-107); Creatinine, Serum 0.95 mg/dL (0.70-1.30); EST Glomerular Filtration Rate 94 mL/min (>60); Est Glom Filt Rate - Afr Amer 114 mL/min (>60); Estimated Creatinine Clearance 85.15 ml/min; Glucose 84 mg/dL (74-106); Phosphorus 3.5 mg/dL (2.5-4.9); Potassium 3.9 mmol/L (3.5-5.1); Sodium Level 138 mmol/L (136-145)
[2020-04-14] MEDS: Potassium Chloride Oral Tablet 20 MEQ 40 MEQ PO (09:44)
[2020-04-14] MEDS: Folic Acid 1 MG Tablet PO (09:44)
[2020-04-14] MEDS: Thiamine Hydrochloride 100 MG Tablet PO (09:44)
--- NOTE | 2020-04-14 14:48 | PN_ITS ---
Reason for Visit: Follow-up for alcohol withdrawal and opioid withdrawal. Objective: The patient is more awake than yesterday. Heart rate and blood pressure are in normal range although on the lower side. Physical exam General: Awake, mild drowsy. Oriented x3. HEENT: Atraumatic, PERRLA, EOMI, Normocephalic Oral: No Gingival or Mucosal Lesions/ Ulcerations Neck: Supple, No JVD, Negative Carotid Bruits Lungs: Air entry diminished in bilateral lung bases. No crepitation/rhonchi Cardiovascular: Regular rate, Regular Rhythm, Normal S1, Normal S2, No murmurs Abdomen: Bowel Sounds Present, Soft, Non Tender, Non-Distended : No renal angle tenderness. No suprapubic tenderness. Extremities: No edema, Capillary Refill Less than 3 Seconds Skin: No rashes, No breakdown Musculoskeletal: No Tenderness to Palpation of Joints or Extremities Neurological: Cranial nerves II-XII grossly intact, Deep Tendon Reflexes 2+/4 and Symmetrical, Neuro grossly intact Psych/Mental Status: Flat affect. Vitals/I&O's: Vital Signs Temp Pulse Resp BP Pulse Ox 98.2 F 77 16 96/53 L 96 04/14/20 13:00 04/14/20 13:00 04/14/20 13:00 04/14/20 13:00 04/14/20 13:00 Oxygen Delivery Method Room Air Weight: 125 lb 14.143 oz Body Mass Index (BMI) 20.2 Intake and Output for Last 24 Hours 04/12/20 04/13/20 04/14/20 23:59 23:59 23:59 Intake Total 3360 / 3360 340 / 340 Output Total 300 / 300 Balance 3060 / 3060 340 / 340 Laboratory Results 04/14/20 05:20: Sodium 138, Potassium 3.9, Chloride 104, Carbon Dioxide 29.0, Anion Gap 5, BUN 18, Creatinine 0.95, Estim Creat Clear Calc 85.15, Est GFR (MDRD) Af Amer 114, Est GFR (MDRD) Non-Af 94, BUN/Creatinine Ratio 19.0, Glucose 84, Calcium 8.6, Phosphorus 3.5, Magnesium 2.0 Current Medications Acetaminophen (Acetaminophen 500 Mg Tablet) 500 mg PO Q4H PRN PRN PRN Reason: Temp > 100.4 F Al Hydroxide/Mg Hydroxide (Mag Hydrox/Al Hydrox/Simeth 30 Ml Udc) 30 ml PO Q6H PRN PRN PRN Reason: dyspesia Albuterol Sulfate (Albuterol 2.5 Mg/3 Ml Vial.Neb.) 2.5 mg INHALATION Q2H PRN PRN PRN Reason: Dyspnea, wheezing Bisacodyl (Bisacodyl 10 Mg Suppository) 10 mg RC DAILY PRN PRN Reason: Constipation Clonidine (Clonidine Hcl 0.1 Mg Tablet) 0.1 mg PO Q8H PRN PRN PRN Reason: RESTLESSNESS Dicyclomine HCl (Dicyclomine 10 Mg Capsule) 20 mg PO Q6H PRN PRN PRN Reason: Abdominal Discomfort Folic Acid (Folic Acid 1 Mg Tablet) 1 mg PO DAILY@0800 [facility] Last Admin: 04/14/20 09:44 Dose: 1 mg Documented by: Gabapentin (Gabapentin 300 Mg Capsule) 300 mg PO Q8H PRN PRN PRN Reason: moderate to severe anxiety Hydralazine HCl (Hydralazine 20 Mg/Ml Vial) 10 mg IV Q4H PRN PRN PRN Reason: SBP > 160 Hydroxyzine Pamoate (Hydroxyzine Whitney 25 Mg Capsule) 50 mg PO Q6H PRN PRN PRN Reason: mild anxiety Loperamide HCl (Loperamide 2 Mg Capsule) 2 mg PO Q4H PRN PRN PRN Reason: LOOSE STOOLS Methocarbamol (Methocarbamol 750 Mg Tablet) 1,500 mg PO Q6H PRN PRN PRN Reason: MUSCLE SPASM Nutritional Formula (Lactose Free) (Ensure Enlive 120 Ml Liquid) 120 ml PO 4X/DAY [facility] Last Admin: 04/14/20 14:16 Dose: 120 ml Documented by: Ondansetron HCl (Ondansetron 8 Mg Tablet) 8 mg PO Q8H PRN PRN PRN Reason: NAUSEA Phenobarbital (Phenobarbital 32.4 Mg Tablet) 64.8 mg PO Q4H [facility]; Taper Stop: 04/17/20 09:44 Last Admin: 04/14/20 14:16 Dose: 64.8 mg Documented by: Potassium Chloride (Potassium Chloride Oral Tablet 20 Meq) 40 meq PO DAILYCM ELIE Stop: 04/15/20 10:54 Last Admin: 04/14/20 09:44 Dose: 40 meq Documented by: Senna (Senna Tablet) 2 tablet PO QHS PRN PRN Reason: Constipation Sodium Chloride (0.9% Saline Lock 10 Ml Syringe) 10 - 40 ml IV UD PRN PRN Reason: SALINE FLUSH Thiamine HCl (Thiamine Hydrochloride 100 Mg Tablet) 100 mg PO DAILYCM [facility] Last Admin: 04/14/20 09:44 Dose: 100 mg Documented by: Trazodone HCl (Trazodone 100 Mg Tablet) 100 mg PO QHS PRN PRN PRN Reason: INSOMNIA STROKE Vital Signs/Narrative: Vital Signs Temp Pulse Resp BP Pulse Ox 04/14/20 13:00 98.2 F 77 16 96/53 L 96 Medical Necessity - Tobacco Use Smoking Status: Never smoker Tobacco Use: Non-smoker Assessment/Plan All Active Problems Admitted to alcohol detoxification center (Acute) Alcoholism /alcohol abuse (Resolved) 31-year-old gentleman with history of chronic opioid and alcohol use and dependence and tolerance admitted with alcohol and opioid withdrawal syndrome. 1. Acute alcohol withdrawal syndrome: Patient is on phenobarbital protocol along with other supportive medications. CIWA score 1. Serum alcohol level is 159. 2. Acute opioid withdrawal syndrome: Buprenorphine is discontinued as patient was very drowsy, sedated on first dose of phenobarbitone yesterday. Currently is more awake and alert. Patient is not showing signs and symptoms of opioid withdrawal. CIWA score 0 3. Polysubstance use and dependence: automotive center manager 180 consult for further follow-up after discharge. Patient may benefit from AA meeting. 4. Hodgkin's lymphoma: Patient is status post chemo and radiation in the past. In remission. 5. VTE prophylaxis: Low risk. Early ambulation encouraged. Inpatient E&M: 42485 [facility] Hosp L2
[2020-04-14] MEDS: 0.9% Saline Lock 10 ML Syringe IV (21:29)
[2020-04-15 02:14] VITALS: BP 91/50; PULSE 72; RESP 16; TEMP 36.4; O2SAT 96
[2020-04-15] MEDS: Phenobarbital 32.4 MG Tablet PO ×5 (02:18→21:26)
[2020-04-15 06:43] LABS: Anion Gap 7 (5-15); BUN 22 mg/dL (7-18); BUN/Creat Ratio 22.7 RATIO (10-20); Calcium,Total 8.8 mg/dL (8.5-10.1); Chloride 102 mmol/L (98-107); Creatinine, Serum 0.97 mg/dL (0.70-1.30); EST Glomerular Filtration Rate 92 mL/min (>60); Est Glom Filt Rate - Afr Amer 111 mL/min (>60); Estimated Creatinine Clearance 83.39 ml/min; Glucose 92 mg/dL (74-106); Potassium 4.1 mmol/L (3.5-5.1); Sodium Level 136 mmol/L (136-145)
[2020-04-15 08:15] VITALS: BP 100/59; PULSE 77; RESP 16; TEMP 36.7; O2SAT 98
[2020-04-15] MEDS: Folic Acid 1 MG Tablet PO (09:06)
[2020-04-15] MEDS: Potassium Chloride Oral Tablet 20 MEQ 40 MEQ PO (09:06)
[2020-04-15] MEDS: Thiamine Hydrochloride 100 MG Tablet PO (09:06)
[2020-04-15 10:05] VITALS: O2SAT 98
[2020-04-15 14:15] VITALS: BP 98/59; PULSE 85; RESP 16; TEMP 36.5; O2SAT 99
--- NOTE | 2020-04-15 16:13 | PN_ITS ---
Objective: Seen and examined. Heart rate and blood pressure controlled. Physical exam General: Awake, drowsy and lethargic. Disoriented to time HEENT: Atraumatic, PERRLA, EOMI, Normocephalic Oral: No Gingival or Mucosal Lesions/ Ulcerations Neck: Supple, No JVD, Negative Carotid Bruits Lungs: Air entry equal in bilateral lung bases. No crepitation/rhonchi Cardiovascular: Regular rate, Regular Rhythm, Normal S1, Normal S2, No murmurs Abdomen: Bowel Sounds Present, Soft, Non Tender, Non-Distended : No renal angle tenderness. No suprapubic tenderness. Extremities: No edema, Capillary Refill Less than 3 Seconds Skin: No rashes, No breakdown Musculoskeletal: No Tenderness to Palpation of Joints or Extremities Neurological: Cranial nerves II-XII grossly intact, Deep Tendon Reflexes 2+/4 and Symmetrical, Neuro grossly intact Psych/Mental Status: Lethargic Vitals/I&O's: Vital Signs Temp Pulse Resp BP Pulse Ox 97.7 F L 85 16 98/59 L 99 04/15/20 14:15 04/15/20 14:15 04/15/20 14:15 04/15/20 14:15 04/15/20 14:15 Oxygen Delivery Method Room Air Weight: 125 lb 14.143 oz Body Mass Index (BMI) 20.2 Intake and Output for Last 24 Hours 04/13/20 04/14/20 04/15/20 23:59 23:59 23:59 Intake Total 3360 / 3360 920 / 920 200 / 200 Output Total 300 / 300 450 / 450 Balance 3060 / 3060 470 / 470 200 / 200 Laboratory Results 04/15/20 05:40: Sodium 136, Potassium 4.1, Chloride 102, Carbon Dioxide 27.0, Anion Gap 7, BUN 22 H, Creatinine 0.97, Estim Creat Clear Calc 83.39, Est GFR (MDRD) Af Amer 111, Est GFR (MDRD) Non-Af 92, BUN/Creatinine Ratio 22.7 H, Glucose 92, Calcium 8.8 Current Medications Acetaminophen (Acetaminophen 500 Mg Tablet) 500 mg PO Q4H PRN PRN PRN Reason: Temp > 100.4 F Al Hydroxide/Mg Hydroxide (Mag Hydrox/Al Hydrox/Simeth 30 Ml Udc) 30 ml PO Q6H PRN PRN PRN Reason: dyspesia Albuterol Sulfate (Albuterol 2.5 Mg/3 Ml Vial.Neb.) 2.5 mg INHALATION Q2H PRN PRN PRN Reason: Dyspnea, wheezing Bisacodyl (Bisacodyl 10 Mg Suppository) 10 mg RC DAILY PRN PRN Reason: Constipation Clonidine (Clonidine Hcl 0.1 Mg Tablet) 0.1 mg PO Q8H PRN PRN PRN Reason: RESTLESSNESS Dicyclomine HCl (Dicyclomine 10 Mg Capsule) 20 mg PO Q6H PRN PRN PRN Reason: Abdominal Discomfort Folic Acid (Folic Acid 1 Mg Tablet) 1 mg PO DAILY@0800 [facility] Last Admin: 04/15/20 09:06 Dose: 1 mg Documented by: Gabapentin (Gabapentin 300 Mg Capsule) 300 mg PO Q8H PRN PRN PRN Reason: moderate to severe anxiety Hydralazine HCl (Hydralazine 20 Mg/Ml Vial) 10 mg IV Q4H PRN PRN PRN Reason: SBP > 160 Hydroxyzine Pamoate (Hydroxyzine Whitney 25 Mg Capsule) 50 mg PO Q6H PRN PRN PRN Reason: mild anxiety Loperamide HCl (Loperamide 2 Mg Capsule) 2 mg PO Q4H PRN PRN PRN Reason: LOOSE STOOLS Methocarbamol (Methocarbamol 750 Mg Tablet) 1,500 mg PO Q6H PRN PRN PRN Reason: MUSCLE SPASM Nutritional Formula (Lactose Free) (Ensure Enlive 120 Ml Liquid) 120 ml PO 4X/DAY [facility] Last Admin: 04/15/20 12:50 Dose: 120 ml Documented by: Ondansetron HCl (Ondansetron 8 Mg Tablet) 8 mg PO Q8H PRN PRN PRN Reason: NAUSEA Phenobarbital (Phenobarbital 32.4 Mg Tablet) 64.8 mg PO Q6H [facility]; Taper Stop: 04/17/20 09:44 Last Admin: 04/15/20 15:21 Dose: 64.8 mg Documented by: Senna (Senna Tablet) 2 tablet PO QHS PRN PRN Reason: Constipation Sodium Chloride (0.9% Saline Lock 10 Ml Syringe) 10 - 40 ml IV UD PRN PRN Reason: SALINE FLUSH Last Admin: 04/14/20 21:29 Dose: 10 ml Documented by: Thiamine HCl ([facility] Hydrochloride 100 Mg Tablet) [facility] Last Admin: 04/15/20 09:06 Dose: 100 mg Documented by: Trazodone HCl (Trazodone 100 Mg Tablet) 100 mg PO QHS PRN PRN PRN Reason: INSOMNIA STROKE Vital Signs/Narrative: Vital Signs Temp Pulse Resp BP Pulse Ox 04/15/20 14:15 97.7 F L 85 16 98/59 L 99 Medical Necessity - Tobacco Use Smoking Status: Never smoker Tobacco Use: Non-smoker Assessment/Plan All Active Problems Admitted to alcohol detoxification center (Acute) Alcoholism /alcohol abuse (Resolved) 31-year-old gentleman with history of chronic opioid and alcohol use and dependence and tolerance admitted with alcohol and opioid withdrawal syndrome. 1. Acute alcohol withdrawal syndrome: Patient is on phenobarbital protocol along with other supportive medications. CIWA score 1. Serum alcohol level is 159. 04/15: Patient is still very lethargic, drowsy. It seems like he still has alcohol withdrawal symptoms. 2. Acute opioid withdrawal syndrome: Buprenorphine is discontinued as patient was very drowsy, sedated on first dose of phenobarbitone yesterday. Currently is more awake and alert. Patient is not showing signs and symptoms of opioid withdrawal. CIWA score 0 3. 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 Patient may benefit from AA meeting. 4. Hodgkin's lymphoma: Patient is status post chemo and radiation in the past. In remission. 5. VTE prophylaxis: Low risk. Early ambulation encouraged. Inpatient E&M: 34870 Subs Hosp L2
[2020-04-15 20:09] VITALS: BP 92/60; PULSE 77; RESP 16; TEMP 36.9; O2SAT 96
[2020-04-15 22:00] VITALS: BP 100/51; PULSE 85; RESP 18; TEMP 36.9; O2SAT 100
[2020-04-16 04:00] VITALS: BP 84/50; PULSE 90; RESP 16; TEMP 36.6; O2SAT 97
[2020-04-16 05:59] VITALS: BP 92/47; PULSE 87; RESP 16; TEMP 36.7; O2SAT 97
[2020-04-16 08:40] VITALS: BP 88/47; PULSE 71; RESP 16; TEMP 36.6; O2SAT 99
[2020-04-16 10:16] VITALS: BP 101/57; PULSE 75; RESP 16; TEMP 36.5; O2SAT 98
[2020-04-16] MEDS: Folic Acid 1 MG Tablet PO (10:23)
[2020-04-16] MEDS: Thiamine Hydrochloride 100 MG Tablet PO (10:23)
--- NOTE | 2020-04-16 10:29 | PCM.DC ---
- Discharge Diagnoses Current Active Problems: Current Active and Chronic Problems Opiate abuse, continuous (Chronic) History of Hodgkin's lymphoma (Chronic) Alcohol abuse (Chronic) You will use the following diet at home:: Regular Your food should be the consistency of: Regular Discharge Activity: May Not Drive Weight Bearing Status: Weight bearing as tolerated Call your doctor if you observe: Fever of 101 or Higher, Numbness or Tingling, Change in Color, Inability to urinate, Inability to have a bowel movement, Shortness of breath, Dizziness, Fainting spells, Swelling in the ankles, Chest pain, Prolonged hiccoughing, Increased palpitations (irregular heartbeat), Calf discomfort, Uncontrolled pain Additional Instructions: Discharge when BP is at baseline >90 mmhg and not dizzy or light headed Follow-up 180 drug rehab program on Saturday on 03/21/2020. Allergies/Adverse Reactions: Allergies naproxen Allergy (Verified 04/13/20 00:31) Hives tramadol Allergy (Verified 04/13/20 00:31) Itching acetaminophen [From Vicodin] Adverse Reaction (Verified 04/13/20 00:31) Nausea hydrocodone [From Vicodin] Adverse Reaction (Verified 04/13/20 00:31) Nausea hydromorphone HCl [From Dilaudid] Adverse Reaction (Verified 04/13/20 00:31) Nausea Medications to take at Discharge Folic Acid 1 mg PO DAILY@0800 #30 tab 04/16/20 Thiamine Hydrochloride [Vitamin B1] 100 mg PO DAILYCM #30 tab 04/16/20 The following prescriptions were given: Folic Acid 1 mg PO DAILY@0800 #30 tab [facility]: [facility]. Thiamine Hydrochloride [Vitamin B1] 100 mg PO DAILYCM #30 tab Transmission Status: [facility] [facility]. Primary Care Physician: Care Physician,No Primary [Primary Care Provider] - Please follow up with your Primary Care Physician in: in 2 weeks Test Results: Test results from this visit will be discussed in further detail at your follow-up appointment, if applicable.
--- NOTE | 2020-04-16 10:30 | DS.PCM_ITS ---
Discharge Date and Diagnosis Date of Admission: 04/13/20 Date of Discharge: 04/16/20 - Secondary Discharge Diagnosis Chronic Problems: Chronic Problems Opiate abuse, continuous (Chronic) History of Hodgkin's lymphoma (Chronic) Alcohol abuse (Chronic) Alcohol dependence (Chronic) Hospital Course and Treatment Operations: None Summary of Care Provided: The patient is a 39 year old M with history of chronic opioid and alcohol use and dependence and tolerance admitted with alcohol and opioid withdrawal syndrome. 1. Acute alcohol withdrawal syndrome: Patient is on phenobarbital protocol along with other supportive medications. CIWA score 1. Serum alcohol level is 159. Patient has chronic low blood pressure baseline systolic 90s probably due to chronic alcohol use and substance use. Patient dose of phenobarbitone was modified accordingly. Patient discharged home with instruction to follow-up with Mary Webb. 2. Acute opioid withdrawal syndrome: Buprenorphine is discontinued as patient was very drowsy, sedated on first dose of phenobarbitone yesterday. Currently is more awake and alert. Patient is not showing signs and symptoms of opioid withdrawal. CIWA score 0 3. Polysubstance use and dependence: marketing manager health communications Tracey consult for further follow-up after discharge. Patient may benefit from AA meeting. 4. Hodgkin's lymphoma: Patient is status post chemo and radiation in the past. In remission. 5. VTE prophylaxis: Low risk. Early ambulation encouraged. Discharge medication reconciliation done. Discharge follow-up instructions completed. Discharge process discussed with the patient and all questions were answered to patient's satisfaction. Follow-up outpatient alcohol and substance use rehab. Total time spent, exact 35 minutes on discharge meds reconciliation, examination, coordination of care with nurses and ancillary staff, review of imaging and blood test and discussion with the patient on follow-up instructions Objective: Seen and examined. Blood pressure 101/57 temperature 97.7. Patient's baseline blood pressure is 90s as per the patient. Physical exam General: Alert, Oriented x3, Cooperative, low body mass, BMI 20.3 kg/m? HEENT: Atraumatic, PERRLA, EOMI, Normocephalic Oral: No Gingival or Mucosal Lesions/ Ulcerations Neck: Supple, No JVD, Negative Carotid Bruits Lungs: Air entry diminished in bilateral lung bases. No crepitation/rhonchi Cardiovascular: Regular rate, Regular Rhythm, Normal S1, Normal S2, No murmurs Abdomen: Bowel Sounds Present, Soft, Non Tender, Non-Distended : No renal angle tenderness. No suprapubic tenderness. Extremities: No edema, Capillary Refill Less than 3 Seconds Skin: No rashes, No breakdown Musculoskeletal: Mild atrophy of extremity muscles. No Tenderness to Palpation of Joints or Extremities Neurological: Cranial nerves II-XII grossly intact, Deep Tendon Reflexes 2+/4 and Symmetrical, Neuro grossly intact Psych/Mental Status: Normal Affect, Appropriate. - Physical Exam Vitals/I&O's: Vital Signs Temp Pulse Resp BP Pulse Ox 97.7 F L 75 16 101/57 L 98 04/16/20 10:16 04/16/20 10:16 04/16/20 10:16 04/16/20 10:16 04/16/20 10:16 Oxygen Delivery Method Room Air Weight: 125 lb 14.143 oz Body Mass Index (BMI) 20.2 Intake and Output for Last 24 Hours 04/14/20 04/15/20 04/16/20 23:59 23:59 23:59 Intake Total 920 / 920 200 / 600 700 / 700 Output Total 450 / 450 Balance 470 / 470 200 / 600 700 / 700 Current Medications Acetaminophen (Acetaminophen 500 Mg Tablet) 500 mg PO Q4H PRN PRN PRN Reason: Temp > 100.4 F, pain 1-10/10 Al Hydroxide/Mg Hydroxide (Mag Hydrox/Al Hydrox/Simeth 30 Ml Udc) 30 ml PO Q6H PRN PRN PRN Reason: dyspesia Albuterol Sulfate (Albuterol 2.5 Mg/3 Ml Vial.Neb.) 2.5 mg INHALATION Q2H PRN PRN PRN Reason: Dyspnea, wheezing Bisacodyl (Bisacodyl 10 Mg Suppository) 10 mg RC DAILY PRN PRN Reason: Constipation Clonidine (Clonidine Hcl 0.1 Mg Tablet) 0.1 mg PO Q8H PRN PRN PRN Reason: RESTLESSNESS Dicyclomine HCl (Dicyclomine 10 Mg Capsule) 20 mg PO Q6H PRN PRN PRN Reason: Abdominal Discomfort Folic Acid (Folic Acid 1 Mg Tablet) 1 mg PO DAILY@0800 ELIE Last Admin: 04/16/20 10:23 Dose: 1 mg Documented by: Gabapentin (Gabapentin 300 Mg Capsule) 300 mg PO Q8H PRN PRN PRN Reason: moderate to severe anxiety Hydralazine HCl (Hydralazine 20 Mg/Ml Vial) 10 mg IV Q4H PRN PRN PRN Reason: SBP > 160 Hydroxyzine Pamoate (Hydroxyzine Whitney 25 Mg Capsule) 50 mg PO Q6H PRN PRN PRN Reason: mild anxiety Loperamide HCl (Loperamide 2 Mg Capsule) 2 mg PO Q4H PRN PRN PRN Reason: LOOSE STOOLS Methocarbamol (Methocarbamol 750 Mg Tablet) 1,500 mg PO Q6H PRN PRN PRN Reason: MUSCLE SPASM Nutritional Formula (Lactose Free) (Ensure Enlive 120 Ml Liquid) 120 ml PO 4X/DAY [facility] Last Admin: 04/16/20 10:24 Dose: 120 ml Documented by: Ondansetron HCl (Ondansetron 8 Mg Tablet) 8 mg PO Q8H PRN PRN PRN Reason: NAUSEA Phenobarbital (Phenobarbital 32.4 Mg Tablet) 32.4 mg PO Q6H ELIE; Taper Stop: 04/17/20 09:44 Last Admin: 04/16/20 06:01 Dose: Not Given Documented by: Senna (Senna Tablet) 2 tablet PO QHS PRN PRN Reason: Constipation Sodium Chloride (0.9% Saline Lock 10 Ml Syringe) 10 - 40 ml IV UD PRN PRN Reason: SALINE FLUSH Last Admin: 04/14/20 21:29 Dose: 10 ml Documented by: Thiamine HCl (Thiamine Hydrochloride 100 Mg Tablet) 100 mg PO DAILYCM [facility] Last Admin: 04/16/20 10:23 Dose: 100 mg Documented by: Trazodone HCl (Trazodone 100 Mg Tablet) 100 mg PO QHS PRN PRN PRN Reason: INSOMNIA Home Medications: Medications to take at Discharge Folic Acid 1 mg PO DAILY@0800 #30 tab 04/16/20 Thiamine Hydrochloride [Vitamin B1] 100 mg PO DAILYCM #30 tab 04/16/20 Following Prescriptions Were Given to Patient: Folic Acid 1 mg PO DAILY@0800 #30 tab Transmission Status: Received by [address] Thiamine Hydrochloride [Vitamin B1] 100 mg PO DAILYCM #30 tab Transmission Status: Received by [address] Primary Care Physician: Care Physician,No Primary [Primary Care Provider] - Medical Necessity - Tobacco Use Smoking Status: Never smoker Tobacco Use: Non-smoker Meaningful Use Info Meaningful Use Diagnoses (Choose all that apply): None applicable Inpatient E&M: 20601 Disch Hosp
[2020-04-16 13:45] VITALS: BP 98/57; PULSE 85; RESP 16; TEMP 36.3; O2SAT 100
[2020-04-16 15:10] VITALS: BP 105/59; PULSE 87; RESP 16; TEMP 36.5; O2SAT 100
--- NOTE | 2020-04-16 15:10 | NURSING ---
RN in to see patient. He is awake and alert ambulating in his room. RN notified patient that she has attempted to call fiance several times with phone only going to voicemail. Message left x1, but a call was not returned. Patient is able to converse with RN and stay awake. Denies dizziness/lightheadedness. States he feels he is safe to drive home. VSS. This RN phones for security to assist patient in finding his vehicle. Patient discharged home with self.
== END 2020-04-16 15:31 | disposition home or self-care (01) | DRG 773 ==
LOC: ED 04-13 00:56 → PCU 04-13 01:16
PROVIDERS: Admitting Provider Family Medicine; Emergency Provider Emergency Medicine; Visit Provider Internal Medicine
DX: F10.239 Alcohol dependence with withdrawal, unspecified (principal); F10.229 Alcohol dependence with intoxication, unspecified; Y90.9 Presence of alcohol in blood, level not specified; F11.23 Opioid dependence with withdrawal; Z85.71 Personal history of Hodgkin lymphoma; Z92.21 Personal history of antineoplastic chemotherapy; Z92.3 Personal history of irradiation
CPT/HCPCS: 36415; 80048; 80053; 80307; 82077; 83735; 84100; 85025; 86703; 86706; 86803; 87340; 97161; 97166; 99283; J7120; A4216; J2405

== ENCOUNTER 2021-01-17 20:19 | Emergency (ER) | payer MEDICAID, SELFPAY ==
[2021-01-17 20:19] VITALS: BP 105/74; PULSE 84; RESP 16; TEMP 36.7; O2SAT 97; BMI 20.8
--- NOTE | 2021-01-17 22:08 | ED.VIS.BACK ---
HPI History of Present Illness Chief Complaint: Back Narrative Narrative: 40-year-old male presenting with left lumbar back pain. He states this started yesterday. He states it started hurting while he was taking out the trash. He has not had any direct trauma. He has tried a heating pad but has not tried ice, anti-inflammatories, Tylenol. Patient states that he does not like to take pills unless necessary. He has not done any stretching. He denies loss of bladder or bowel control. He denies saddle anesthesia. Patient does have a history of opioid dependent as well as alcohol abuse. PFSH PFS Home Medications folic acid 1 mg PO DAILY@0800 #30 tab 04/16/20 [Rx Last Taken Unknown] thiamine HCl (vitamin B1) 100 mg PO DAILYCM #30 tab 04/16/20 [Rx Last Taken Unknown] prednisone 50 mg PO DAILY #3 tab 01/17/21 [Rx Last Taken Unknown] Allergy/AdvReac Type Severity Reaction Status Date / Time naproxen Allergy Hives Verified 01/17/21 20:19 tramadol Allergy Itching Verified 01/17/21 20:19 acetaminophen [From Vicodin] AdvReac Nausea Verified 01/17/21 20:19 hydrocodone [From Vicodin] AdvReac Nausea Verified 01/17/21 20:19 hydromorphone HCl AdvReac Nausea Verified 01/17/21 20:19 [From Dilaudid] Social History Smoking Status: Never smoker ROS ROS ED Constitutional Constitutional ED: Denies fever(s) or subjective Eyes Eyes: Denies blurry vision or diplopia ENT ENT ED: Denies rhinorrhea or sore throat Cardiovascular Cardiovascular: Denies palpitations or racing heartbeat Respiratory/Chest Respiratory/Chest: Denies dyspnea on exertion or sputum Gastrointestinal Gastrointestinal: Denies abdominal pain, nausea or vomiting Genitourinary Genitourinary ED: Denies dysuria, hematuria or urinary frequency Musculoskeletal Musculoskeletal: Reports back pain; Denies myalgias Integumentary Denies Abrasions or rash Neurologic Neurologic: Denies headache(s) or paresthesias Psychiatric Psychiatric: Denies anxiety or depression EXAM Physical Exam Const Vital Signs: 01/17/21 20:19 Temperature 98.1 F Temperature Source Temporal Pulse Rate 84 Respiratory Rate 16 Blood Pressure 105/74 Blood Pressure Mean 84 Pulse Ox 97 Oxygen Delivery Method Room Air Positive well nourished General Appearance ED: NAD; Negative for pallor HEENT Reports moist mucous membranes trauma Eyes PERRL and EOMs intact bilaterally Resp normal respiratory effort and clear to auscultation bilaterally Cardio regular rate and regular rhythm Back/Spine Back/Spine Narrative: Tenderness palpation left lumbar paraspinal musculature. No midline spinal deformity or step-off. No ecchymosis, abrasion. Neuro oriented x3 Sensorium / Orientation: alert Psych mental status grossly normal Skin no rashes or lesions noted General Skin Exam: Negative for jaundice or pallor MDM MDM MDM Narrative Medical decision making narrative: Patient presenting with nontraumatic back pain. No signs or symptoms of cauda equina syndrome. Patient does have a history of opioid abuse as well as EtOH abuse. I do not feel that treating his pain with narcotics or anything addictive would be appropriate. He is given a shot of Toradol in the ED. He will be given a course of prednisone. He is counseled on stretching, icing, alternating Tylenol and ibuprofen. Patient will follow up with his PCP to ensure resolution. Impression: 1. Lumbar strain Discharge Plan Triage Chief Complaint: Back ED Provider: Selwyn Villagomez Dx/Rx/DC Orders Instructions: ED Back Pain (Acute or Chronic) Prescriptions: New prednisone 50 mg tablet 50 mg PO DAILY Qty: 3 RF: 0 No Action thiamine HCl (vitamin B1) 100 MG tablet 100 mg PO DAILYCM Qty: 30 RF: 1 folic acid 1 MG tablet 1 mg PO DAILY@0800 Qty: 30 RF: 1 Primary Care Provider: Care Physician,No Primary Referrals: Care Physician,No Primary [Primary Care Provider] - Disposition Disposition: Home, Self Care
[2021-01-17] MEDS: predniSONE 20 MG Tablet 60 MG PO (22:13)
[2021-01-17] MEDS: Ketorolac 15 MG/ML Vial IM (22:13)
== END 2021-01-17 22:38 | disposition home or self-care (01) ==
PROVIDERS: Emergency Provider Student in an Organized Health Care Education/Training Program
DX: S39.012A Strain of muscle, fascia and tendon of lower back, initial encounter (principal); X58.XXXA Exposure to other specified factors, initial encounter; Y93.9 Activity, unspecified; Y92.9 Unspecified place or not applicable; F10.10 Alcohol abuse, uncomplicated; F11.10 Opioid abuse, uncomplicated
CPT/HCPCS: 96372; 99283

== ENCOUNTER 2021-03-08 16:10 | Emergency (ER) | payer MEDICAID, SELFPAY ==
[2021-03-08 16:11] VITALS: BP 117/81; PULSE 105; RESP 18; TEMP 35.9; O2SAT 97; BMI 20.7
--- NOTE | 2021-03-08 18:03 | EDS_ITS ---
HPI HPI - URI History of Present Illness Chief Complaint: Sore Throat Informant: patient Onset/Context/Timing Onset: Yesterday Context: Sudden Onset Timing: Continuous Quality: Sharp Location: Throat Worsened by: Swallowing, Eating Solids and Drinking Liquids Relieved by: Not Relieved By Tylenol and NSAIDs Associated Symptoms Associated Symptoms: Positive for Nonproductive cough; Negative for Nasal Congestion, Headache, Sinus Pressure, Myalgias, Nausea, Vomiting, Diarrhea, Shortness of Breath, Chest Pain, Hemoptysis and Productive Cough Narrative Narrative: Patient presents with a sore throat that began yesterday. Patient describes his pain as sharp. Patient states it is worse with swallowing, eating, or drinking. Patient states his pain is localized to the throat area. Patient states nothing seems to help with it. Patient admits to a cough but denies any sputum production. Patient denies any nasal congestion or headache. Patient denies any chest pain or shortness of breath. Patient denies any nausea or vomiting, diarrhea. ROS ROS ED Constitutional Constitutional ED: Reports chills and subjective; Denies fever(s) Eyes Eyes: Denies blurry vision or change in vision ENT ENT ED: Denies rhinorrhea or sore throat Cardiovascular Cardiovascular: Denies chest pain or palpitations Respiratory/Chest Respiratory/Chest: Denies cough or dyspnea Gastrointestinal Gastrointestinal: Denies nausea or vomiting Genitourinary Genitourinary ED: Denies dysuria or hematuria Musculoskeletal Musculoskeletal: Denies back pain or neck pain Integumentary Denies abscess or rash Neurologic Neurologic: Denies headache(s) or weakness Allergic/Immunologic Allergic/Immunologic ED: Denies mouth swelling or urticaria PFSH PFS Home Medications NK 03/08/21 [History Last Taken Unknown] Allergy/AdvReac Type Severity Reaction Status Date / Time naproxen Allergy Hives Verified 03/08/21 16:11 tramadol Allergy Itching Verified 03/08/21 16:11 acetaminophen [From Vicodin] AdvReac Nausea Verified 03/08/21 16:11 hydrocodone [From Vicodin] AdvReac Nausea Verified 03/08/21 16:11 hydromorphone HCl AdvReac Nausea Verified 03/08/21 16:11 [From Dilaudid] Social History Smoking Status: Never smoker EXAM Physical Exam Const Vital Signs: 03/08/21 16:11 Temperature 96.7 F L Temperature Source Temporal Pulse Rate 105 H Respiratory Rate 18 Blood Pressure 117/81 H Blood Pressure Mean 93 Pulse Ox 97 Oxygen Delivery Method Room Air Positive well nourished and well developed General Appearance ED: well developed HEENT Reports moist mucous membranes HEENT Narrative: There is some mild erythema of the oropharynx. There is some postnasal drainage. There is no discharge or drainage.. There are no exudates. normocephalic Neck supple and no JVD Resp normal respiratory effort and clear to auscultation bilaterally Cardio Rate: regular rate GI non-tender Palpation: soft Neuro oriented x3, CN's II-XII intact bilaterally and no sensory deficits noted Sensorium / Orientation: alert Motor Exam: strength 5/5 throughout Psych mental status grossly normal MDM MDM MDM Narrative Medical decision making narrative: Rapid strep was obtained and was negative. C OVID-19 rapid antigen was obtained and was positive. Patient was advised of his findings. Patient is agreeable for monoclonal antibody infusion. Patient was given a referral for this. Patient was instructed to follow-up with his primary care physician in 5 to 7 days. Patient understood and was agreeable with the plan. All questions were answered. Symptom onset occurred: 03/07/2021 Positive COVID-19 test occurred: 03/08/2021 The FDA has authorized the emergency use of monoclonal antibody treatment (bamlanivimab/etesevimab or casirivimab/imdevimab) for mild to moderate COVID-19 in adults and pediatric patients with positive results of direct SARS?Cov?2 viral testing ages 12 and older, at least 40 kg, who are at high risk for progressing to severe COVID-19 and or hospitalization. The significant known and potential risks (allergic reactions, worsening of symptoms after treatment, or side effects from injection including brief pain, bleeding, bruising of the skin, soreness, swelling, possible infection at the infusion site) and benefits (decrease chance of progression to severe COVID-19) of a monoclonal antibody infusion, and the extent to which such potential risks and benefits are unknown. Note that worsening symptoms after treatment may occur but it is unknown whether these symptoms are related to treatment or are due to the progression of COVID-19. Worsening symptoms may include: fever, difficulty breathing, rapid or slow heart rate, tiredness, weakness or confusion. If these symptoms occur, patients are encouraged to seek immediate medical attention. These treatments are still being studied, all possible side effects may not be listed or known at this time. Patients treated with monoclonal antibody infusion should continue to self- isolate and use infection control measures (such as wear mask, isolate, social distance, avoid sharing personal items, clean and disinfect high touch surfaces, and frequent handwashing) according to the CDC guidelines. The fact sheet for patients, parents and caregivers will be provided prior to the administration of the medication. No drugs are approved by the FDA at this time to treat outpatients with mild or moderate symptoms of COVID-19. In addition to IV monoclonal antibodies, there are oral medications that have received authorization from the FDA to treat [id number] COVID-19 in patients at high risk for progression to severe COVID-19. These medications may not be appropriate for all patients and available drug supply may be limited. However, these oral medications may be more effective against the omicron variant. The following information was communicated to the patient or caregiver: Monoclonal antibody infusion for COVID-19 is not an FDA approved drug. The FDA has authorized the emergency use of monoclonal antibody therapy. The patient had the option to refuse or accept treatment with monoclonal antibody therapy. The patient was informed that the number of people treated with monoclonal antibody therapy at this time is small. The potential benefits and the potential risks of monoclonal antibody therapy are not fully known. Potential benefits of monoclonal antibody include a reduced risk of progressing to severe COVID-19 infection. Potential risks or side effects of monoclonal antibody therapy include allergic reactions, side effects from injection including brief pain, bleeding, bruising of the skin, soreness, swelling, possible infection at the infusion site and worsening of symptoms. Due to the changes in the virus that causes COVID-19, some monoclonal antibody treatments may not be effective for all forms of the virus (known as variants). This includes the omicron variant. The patient stated understanding of this information communicated and wished to proceed with monoclonal antibody infusion therapy. Current symptoms include: Shortness of breath, cough (productive versus nonproductive), fever, headache, nausea/vomiting, body aches, chills, general malaise, loss of taste or smell, sneezing, nasal congestion. Discharge Plan Triage Chief Complaint: Sore Throat ED Provider: Tha Woodard Dx/Rx/DC Orders Clinical Impression: COVID-19 Instructions: Coronavirus Disease 2019 (COVID-19): Overview Prescriptions: No Action NK RF: 0 Stand Alone Forms: Monoclonal Antibody Referral Primary Care Provider: Care Physician,No Primary Referrals: Hodan Will [NON-STAFF] - 5-7 Days Care Physician,No Primary [Primary Care Provider] - Disposition Disposition: Home, Self Care
== END 2021-03-08 18:27 | disposition home or self-care (01) ==
PROVIDERS: Emergency Provider Emergency Medicine; Visit Provider Emergency Medicine
DX: U07.1 COVID-19 (principal)
CPT/HCPCS: 87426; 87880; 99282

== ENCOUNTER 2021-03-13 15:13 | Outpatient (CLI) | payer MEDICAID, SELFPAY ==
[2021-03-13 15:16] VITALS: BP 99/64; PULSE 87; RESP 16; TEMP 37; O2SAT 99; BMI 25.8
[2021-03-13] MEDS: 0.9% Saline Lock 10 ML Syringe IV (15:24)
[2021-03-13 15:58] VITALS: BP 93/57; PULSE 84; RESP 16; TEMP 36.8; O2SAT 100
[2021-03-13 16:56] VITALS: BP 102/59; PULSE 74; RESP 16; TEMP 36.8; O2SAT 100
== END 2021-03-13 23:59 | disposition home or self-care (01) ==
LOC: MS3OUT 15:14 → MS3 15:14
PROVIDERS: Referring Provider Emergency Medicine; Visit Provider Emergency Medicine
DX: Z23 Encounter for immunization (principal); U07.1 COVID-19
CPT/HCPCS: J7050; M0245; Q0245; A4216

== ENCOUNTER 2021-04-02 23:14 | Emergency (ER) | payer MEDICAID, SELFPAY ==
[2021-04-02 23:15] VITALS: BP 114/77; PULSE 102; RESP 15; TEMP 36; O2SAT 98; BMI 25.8
--- NOTE | 2021-04-02 23:27 | ED.VIS.LOWEX ---
HPI History of Present Illness HPI Narrative: Patient presents with left lateral ankle/dorsum of foot pain that he has had for the last few days. He denies any injury. His girlfriend states that she has been getting him to take Tylenol on occasion, and he has been wearing a black sleeve over his ankle. He went to a [employer] [place] [employer], and has had increased pain in this area. He may have noticed a little swelling. He denies any fevers or chills. No nausea or vomiting. Pain is worse with standing and movement of his left ankle. Chief Complaint: Lower Extremity [facility] Home Medications NK 03/08/21 [History Last Taken Unknown] Allergy/AdvReac Type Severity Reaction Status Date / Time naproxen Allergy Hives Verified 04/02/21 23:15 tramadol Allergy Itching Verified 04/02/21 23:15 acetaminophen [From Vicodin] AdvReac Nausea Verified 04/02/21 23:15 hydrocodone [From Vicodin] AdvReac Nausea Verified 04/02/21 23:15 hydromorphone HCl AdvReac Nausea Verified 04/02/21 23:15 [From Dilaudid] Social History Smoking Status: Never smoker ROS ROS ED ROS Narrative Constitutional: No fever, no chills. HEENT: No sore throat. No neck pain. No loss of vision. No rhinorrhea. Cardiovascular: No chest pain. No palpitations. No pedal edema. Respiratory: No cough, no shortness of breath. Abdominal: No abdominal pain. No nausea. No vomiting. Genitourinary: No dysuria. No hematuria. Musculoskeletal: No myalgias. Left ankle pain, lateral dorsum of foot. Neurologic: No headaches. No dizziness. No lightheadedness. Skin: No rash. No change in color. Psychiatric: No depression. No anxiety. EXAM Physical Exam Narrative Exam Narrative: Afebrile. Vital signs noted. HEENT: Normocephalic. Atraumatic. PERRL, EOMI. Neck soft and supple. No point tenderness or step off. Cardiovascular: Regular rate and rhythm. No murmurs, rubs, or gallops appreciated. Respiratory: No tachypnea. Lungs clear to auscultation bilaterally. Gastrointestinal: Abdomen soft, nontender, with normoactive bowel sounds. No rebound or guarding. Neurological: Awake. Alert. Nonfocal, nonlateralizing. Skin: No rash. Normal color. No pallor. Musculoskeletal: No pedal edema. Full range of motion extremities. Inspection of the left ankle reveals minimal swelling over the dorsum of the foot laterally and in the talofibular ligament area. No erythema. Palpable dorsalis pedis pulse. EHL intact. Good capillary refill. No palpable Achilles tendon deficit. No proximal fibular head tenderness. Const Vital Signs: 04/02/21 23:15 Temperature 96.8 F L Temperature Source Temporal Pulse Rate 102 H Respiratory Rate 15 Blood Pressure 114/77 Blood Pressure Mean 89 Pulse Ox 98 Oxygen Delivery Method Room Air MDM MDM MDM Narrative Medical decision making narrative: Be treated as an ankle sprain. He declined crutches. He will be given an Aircast. While he has an allergy to naproxen, he states he can take ibuprofen. He will continue ice and elevation at home. Follow-up with his primary care physician. Return instructions to the emergency department were reviewed. Disposition is discharged home in stable condition.I do not think that this is gout. There is no erythema. There is a minimal amount of swelling. X-rays were obtained of the left ankle and 3 views. X-ray of the ankle shows no acute osseous abnormality. There is mild soft tissue swelling Radiography Diagnostic Testing: Clinical Impression(s) from Imaging Studies Ankle X-Ray 04/02/21 23:37 IMPRESSION: No acute osseous abnormality. Electronically Signed: Boogie Nash MD at 23:57 EST Reading Location ID and State: [facility] [place] Tel , Service support , Discharge Plan Triage Chief Complaint: Lower Extremity Injury ED Provider: Tomy Baumann Dx/Rx/DC Orders Clinical Impression: Ankle sprain, Ankle pain, left Instructions: ED Arthralgia, ED Ankle Sprain (Adult) Prescriptions: No Action NK RF: 0 Primary Care Provider: Care Physician,No Primary Referrals: Care Physician,No Primary [Primary Care Provider] - Disposition Disposition: Home, Self Care
--- NOTE | 2021-04-02 23:37 | RAD_ITS ---
STUDY: X-RAY - LEFT ANKLE REASON FOR EXAM: Male, 40 years old. Pain. TECHNIQUE: 3 view(s) of the ankle. COMPARISON: None. FINDINGS: No visible fracture. No osseous destruction. Alignment anatomic. Mild degenerative changes. Lateral soft tissue swelling. RAD/Ankle min 3 Views IMPRESSION: No acute osseous abnormality. Electronically Signed: Boogie Nash MD at 23:57 EST Reading Location ID and State: [id number] [place] Tel , Service support ,
== END 2021-04-03 00:17 | disposition home or self-care (01) ==
PROVIDERS: Emergency Provider Emergency Medicine; Visit Provider Emergency Medicine
DX: S93.402A Sprain of unspecified ligament of left ankle, initial encounter (principal); X58.XXXA Exposure to other specified factors, initial encounter; Y93.9 Activity, unspecified; Y92.9 Unspecified place or not applicable
CPT/HCPCS: 73610; 99283

== ENCOUNTER 2022-01-29 12:15 | Emergency (ER) | payer MEDICAID, SELFPAY ==
[2022-01-29 12:16] VITALS: BP 95/70; PULSE 92; RESP 18; TEMP 37.4; O2SAT 98; BMI 21.7
--- NOTE | 2022-01-29 13:49 | ED.RN ---
called pt for room at 1345. not in waiting room.
== END 2022-01-29 13:45 | disposition left against medical advice (07) ==
LOC: ED 13:49
DX: Z53.29 Procedure and treatment not carried out because of patient's decision for other reasons (principal)

== ENCOUNTER 2022-04-21 11:23 | Emergency (ER) | payer MEDICAID, SELFPAY ==
[2022-04-21 11:24] VITALS: BP 94/66; PULSE 101; RESP 16; TEMP 36.6; O2SAT 100; BMI 21.9
--- NOTE | 2022-04-21 11:33 | CT_ITS ---
HISTORY: left flank pain. TECHNIQUE: Helically acquired images were obtained of the abdomen and pelvis without oral or IV contrast. A radiation dose optimization technique was used for this scan. 407 images. COMPARISON: 03/15/2016. FINDINGS: LOWER CHEST: Lung bases clear. Mild pectus excavatum. BOWEL: Bowel including appendix nondilated. Mild fluid in the colon. No focal pericolonic inflammatory change. PERITONEUM: No significant free fluid. LIVER/SPLEEN/PANCREAS: Nonenlarged. GALLBLADDER/BILIARY TREE: Gallbladder present. KIDNEYS AND URETERS: No nephrolithiasis or obstructing ureteral calculus. ADRENAL GLANDS: No nodules. VESSELS: No abdominal aortic aneurysm. PELVIC ORGANS: Unremarkable. BONES: Intact. CT/Abdomen/Pelvis without Cont IMPRESSION: Mild fluid in the colon, suggesting mild gastroenteritis, diarrheal illness. Negative examination for renal stone. Electronically Signed: Tiffany Ricketts MD at 12:29 EST ,
--- NOTE | 2022-04-21 11:37 | EDS_ITS ---
HPI <ERNIE Jolly - Last Filed: 04/21/22 12:38> History of Present Illness Chief Complaint: Abd Pain Narrative Narrative: 41-year-old male presents with LLQ abdominal pain that started when urinating last night. He also has burning with urination. This is continued today along with chills. No fever. No nausea or vomiting. He states it feels similar to past kidney stones. He also has a history of non-Hodgkin's lymphoma diagnosed in 2005 and completed chemotherapy at that time. He was told some recent blood work looked abnormal but did not follow-up with his doctor in [place]. No abdominal surgical history. He tells me he only drinks alcohol occasionally and is not using drugs. PFS <ERNIE Jolly - Last Filed: 04/21/22 12:38> [facility] Medical History (Updated 04/21/22 @ 12:49 by Catalina Tang) Alcohol abuse Non-Hodgkin lymphoma Opioid abuse Home Medications cholecalciferol (vitamin D3) 50 mcg (2,000 unit) capsule (Vitamin D3) 2,000 unit PO DAILY 04/21/22 [History Last Taken Unknown] Allergy/AdvReac Type Severity Reaction Status Date / Time naproxen Allergy Hives Verified 04/21/22 11:25 tramadol Allergy Itching Verified 04/21/22 11:25 acetaminophen [From Vicodin] AdvReac Nausea Verified 04/21/22 11:25 hydrocodone [From Vicodin] AdvReac Nausea Verified 04/21/22 11:25 hydromorphone HCl AdvReac Nausea Verified 04/21/22 11:25 [From Dilaudid] Social History Smoking Status: Never smoker ROS <ERNIE Jolly - Last Filed: 04/21/22 12:38> ROS ED ROS Narrative Constitutional: Positive for chills. Negative for fever. CVS: Negative for palpitations, chest pain, syncope. Respiratory: Negative for shortness of breath, cough. GI: Positive for abdominal pain.negative for nausea, vomiting, diarrhea, constipation, melena, hematochezia. : Positive for dysuria. Skin: Negative for rash, abscess, or wound. Musc: Negative for joint pain, swelling, trauma. EXAM <ERNIE Jolly - Last Filed: 04/21/22 12:38> Physical Exam Narrative Exam Narrative: CONST: Patient appears uncomfortable lying in bed but nontoxic. EYES: Normal inspection. NECK: Normal inspection. RESP: No respiratory distress, CTAB. CVS: Regular rate and rhythm, no murmur, no gallop. ABD: Soft with slight LLQ tenderness, no guarding or rebound, nondistended. Back: Normal inspection, no CVA tenderness. SKIN: Color normal, no rash, warm, dry, intact. EXTREMITIES: Normal appearance, no pedal edema. NEURO: Oriented x4. PSYCH: Normal affect. Const Vital Signs: 04/21/22 11:24 04/21/22 12:51 Temperature 97.8 F Temperature Source Temporal Pulse Rate 101 H Respiratory Rate 16 Blood Pressure 94/66 101/69 Blood Pressure Mean 75 Pulse Ox 100 Oxygen Delivery Method Room Air <Dr. Mary Parker MD - Last Filed: 04/21/22 14:05> Physical Exam Const Vital Signs: 04/21/22 11:24 04/21/22 12:51 Temperature 97.8 F Temperature Source Temporal Pulse Rate 101 H Respiratory Rate 16 Blood Pressure 94/66 101/69 Blood Pressure Mean 75 Pulse Ox 100 Oxygen Delivery Method Room Air MDM <ERNIE Jolly - Last Filed: 04/21/22 12:38> MDM MDM Narrative Medical decision making narrative: History gathered from: Patient and significant other Patient has LLQ abdominal pain and dysuria. He appears well and nontoxic. BP is 94/66, HR 101, otherwise normal vital signs. His blood pressure always runs in the 90s/100s systolic. Exam is remarkable for mild LLQ tenderness but no guarding or rebound. No flank tenderness. Labs, urine, and CT were ordered to rule out kidney stone or intra-abdominal process. He states that NSAIDs cause hives so he was treated with IV fluids, fentanyl due to blood pressure, and Zofran. CBC and BMP are unremarkable. UA negative for infection. CT shows no acute renal process. Has mild fluid in the colon suggestive of gastroenteritis and when I relayed these results he states he did have a couple episodes of loose stool over the last few days. I recommended Tylenol as needed for pain and he can try Imodium. Patient was comfortable with this plan and discharged in stable condition. Lab Data Labs: Laboratory Results - last 24 hr 04/21/22 04/21/22 04/21/22 11:55 11:55 11:55 WBC 4.5 RBC 5.24 Hgb 15.0 Hct 44.9 MCV 85.7 MCH 28.6 MCHC 33.4 RDW Std Deviation 43.2 RDW Coeff of Hugo 13.8 Plt Count 214 MPV 10.3 Immature Gran % (Auto) 0.200 Neut % (Auto) 83.8 H Lymph % (Auto) 8.7 L [place] % (Auto) 5.3 Eos % (Auto) 1.8 Baso % (Auto) 0.2 Absolute Neuts (auto) 3.8 Absolute Lymphs (auto) 0.39 L Nucleated RBC % 0 Differential Comment SCANNED Sodium 136 Potassium 3.9 Chloride 102 Carbon Dioxide 26.0 Anion Gap 8 BUN 20 H Creatinine 1.07 Estim Creat Clear Calc 80.07 Est GFR (MDRD) Af Amer 98 Est GFR (MDRD) Non-Af 81 BUN/Creatinine Ratio 18.7 Glucose 109 H Calcium 8.8 Urine Color Yellow Urine Clarity Clear Urine pH 5.0 Ur Specific [place] 1.020 Urine Protein 30 H Urine Glucose (UA) Normal Urine Ketones 50 H Urine Occult Blood Negative Urine Nitrite Negative Urine Bilirubin 1 H Urine Urobilinogen 1 H Ur Leukocyte Esterase Negative Urine RBC 0 SEEN Urine WBC 0 SEEN Ur Squamous Epith Cells 0 SEEN Urine Bacteria 0 SEEN Urine Mucus 2+ Radiography Diagnostic Testing: Clinical Impression(s) from Imaging Studies Abdomen/Pelvis CT 04/21/22 11:33 IMPRESSION: Mild fluid in the colon, suggesting mild gastroenteritis, diarrheal illness. Negative examination for renal stone. Electronically Signed: Tiffany Ricketts MD at 12:29 EST , <Dr. Mary Parker MD - Last Filed: 04/21/22 14:05> [facility] Lab Data Labs: Laboratory Results - last 24 hr 04/21/22 04/21/22 04/21/22 11:55 11:55 11:55 WBC 4.5 RBC 5.24 Hgb 15.0 Hct 44.9 MCV 85.7 MCH 28.6 MCHC 33.4 RDW Std Deviation 43.2 RDW Coeff of [place] 13.8 Plt Count 214 MPV 10.3 Immature Gran % (Auto) 0.200 Neut % (Auto) 83.8 H Lymph % (Auto) 8.7 L [place] % (Auto) 5.3 Eos % (Auto) 1.8 Baso % (Auto) 0.2 Absolute Neuts (auto) 3.8 Absolute Lymphs (auto) 0.39 L Nucleated RBC % 0 Differential Comment SCANNED Sodium 136 Potassium 3.9 Chloride 102 Carbon Dioxide 26.0 Anion Gap 8 BUN 20 H Creatinine 1.07 Estim Creat Clear Calc 80.07 Est GFR (MDRD) Af Amer 98 Est GFR (MDRD) Non-Af 81 BUN/Creatinine Ratio 18.7 Glucose 109 H Calcium 8.8 Urine Color Yellow Urine Clarity Clear Urine pH 5.0 Ur Specific [place] 1.020 Urine Protein 30 H Urine Glucose (UA) Normal Urine Ketones 50 H Urine Occult Blood Negative Urine Nitrite Negative Urine Bilirubin 1 H Urine Urobilinogen 1 H Ur Leukocyte Esterase Negative Urine RBC 0 SEEN Urine WBC 0 SEEN Ur Squamous Epith Cells 0 SEEN Urine Bacteria 0 SEEN Urine Mucus 2+ Radiography Diagnostic Testing: Clinical Impression(s) from Imaging Studies Abdomen/Pelvis CT 04/21/22 11:33 IMPRESSION: Mild fluid in the colon, suggesting mild gastroenteritis, diarrheal illness. Negative examination for renal stone. Electronically Signed: Tiffany Ricketts MD at 12:29 EST Reading Location ID and State: [facility] / [place] Tel , Service support , Treatment and Re-Evaluation :: Patient seen and evaluated with RICH. I personally interviewed and examined the patient. I was involved in all aspects of patient's orders, interpretation of results, and treatment. Patient presents with left flank pain started last evening. He has a history of kidney stones but is unable to tell me this feels similar. Patient lying in bed no acute distress. Nontoxic-appearing. Head and neck examination unremarkable. Heart is regular rate and rhythm. Lung sounds are clear. Abdomen is soft with minimal tenderness left lower quadrant. No masses. Lab work obtained along with urinalysis and CT flank. Patient given IV fluids along with Zofran and a small dose of fentanyl. He reports an allergy to Toradol. Lab work is unremarkable with normal CBC and chemistry studies. Urinalysis reveals no sign of infection and no hematuria. CT flank reveals no evidence of kidney stone. Test results discussed with the patient and instructions for supportive care given. Discharge Plan Triage Chief Complaint: Abd Pain ED Midlevel Provider: Olga Lidia [place] ED Provider: Mary Parker Dx/Rx/DC Orders Clinical Impression: Abdominal pain, Acute diarrhea Instructions: Abdominal Pain Prescriptions: No Action cholecalciferol (vitamin D3) [Vitamin D3] 50 mcg (2,000 unit) capsule 2,000 unit PO DAILY Label Comments: TAKE 1 CAPSULE BY MOUTH ONCE DAILY FOR 30 DAYS Primary Care Provider: Care Physician,No Primary Referrals: Care Physician,No Primary [Primary Care Provider] - Activity Restrictions/Additional Instructions: You can try [id number] Imodium for your diarrhea. Stay hydrated. Return to the ER if symptoms worsen. Disposition Disposition: Home, Self Care Discharge Date/Time: 04/21/22 12:52
[2022-04-21] MEDS: 0.9% Normal Saline 1,000 ML 999 ML IV (11:50)
[2022-04-21] MEDS: fentaNYL 100 MCG/2 ML Ampul 50 MCG IV (11:51)
[2022-04-21] MEDS: Ondansetron 4 MG/2 ML Vial IV (11:51)
[2022-04-21 12:02] LABS: Bacteria 0 SEEN /hpf (None Seen); Red Blood Cells-Urine 0 SEEN /hpf (0-5); Squamous Epithelial Cells - UA 0 SEEN /hpf (0-5); White Blood Cells 0 SEEN /hpf (0-5)
[2022-04-21 12:03] LABS: Color, Urine Yellow (Yellow); Glucose, Dipstick Normal (Normal); Ketone-Dipstick 50 mg/dl (Negative); Leukocyte Esterase-Dipstick Negative /ul (Negative); Nitrite-Dipstick Negative (Negative); Occult Blood-Urine Negative /ul (Negative); Protein-Dipstick 30 mg/dl (Negative); Urine Clarity Clear (Clear); Urine Urobilinogen 1 mg/dl (Normal)
[2022-04-21 12:04] LABS: Absolute Lymphocyte Count 0.39 X10^3/uL (0.83-4.51); Absolute Neutrophil Count 3.8 X10^3/uL (2.0-7.7); Basophil# 0.01 X10^3/uL; Basophil% 0.2 % (0-1); Eosinophil# 0.08 X10^3/uL; Eosinophils% 1.8 % (0-5); Hematocrit 44.9 % (40-54); Lymphocyte # 0.39 X10^3/ul (0.83-4.51); Lymphocyte % 8.7 % (19-41); Mean Corp Hgb Conc 33.4 g/dL (32-36); Mean Corpuscular Hgb 28.6 pg (27.0-32.0); Mean Corpuscular Volume 85.7 fL (80-94); Mean Platelet Vol. 10.3 fl (6.2-12.0); Monocyte# 0.24 X10^3/uL; Monocyte% 5.3 % (0-10); NRBC Flagged by Analyzer 0 % (0-5); Neutrophil # 3.77 X10^3/uL (2.7-7.7); Neutrophil % 83.8 % (47-70); POSITIVE DIFFERENTIAL YES; Platelet Count 214 K/mm3 (150-450); RBC Distribution Width CV 13.8 % (11.6-14.6); RBC Distribution Width SD 43.2 fl (35.1-43.9); Red Blood Count 5.24 M/mm3 (4.6-6.2); White Blood Count 4.5 K/mm3 (4.4-11.0)
[2022-04-21 12:05] LABS: Differential Indicated SCAN CRITERIA MET
[2022-04-21 12:06] LABS: Urine Bilirubin Dipstick 1 mg/dL (Negative)
[2022-04-21 12:18] LABS: Mucous, Urine 2+ /hpf (<or=2+)
[2022-04-21 12:19] LABS: Anion Gap 8 (5-15); BUN 20 mg/dL (7-18); BUN/Creat Ratio 18.7 RATIO (10-20); Calcium,Total 8.8 mg/dL (8.5-10.1); Chloride 102 mmol/L (98-107); Creatinine, Serum 1.07 mg/dL (0.70-1.30); EST Glomerular Filtration Rate 81 mL/min (>60); Est Glom Filt Rate - Afr Amer 98 mL/min (>60); Estimated Creatinine Clearance 80.07 ml/min; Glucose 109 mg/dL (74-106); Potassium 3.9 mmol/L (3.5-5.1); Sodium Level 136 mmol/L (136-145)
[2022-04-21 12:20] LABS: Differential Comment SCANNED
[2022-04-21 12:51] VITALS: BP 101/69
== END 2022-04-21 12:52 | disposition home or self-care (01) ==
PROVIDERS: Physician Assistant; Emergency Provider Emergency Medicine; Visit Provider Emergency Medicine
DX: R10.32 Left lower quadrant pain (principal); R30.0 Dysuria; R19.7 Diarrhea, unspecified
CPT/HCPCS: 74176; 80048; 81001; 85025; 96374; 96375; 99283; J7030; A4216; J2405